=== PATIENT | female | born 1960 ===

== ENCOUNTER → 2016-06-02 | Outpatient (CLI) | payer BC, OTHER ==
--- NOTE | 2016-06-03 09:37 | US ---
EXAMINATION ULTRASOUND ABDOMEN HISTORY: Abdominal pain Pancreas is not well visualized. Abdominal aorta is not aneurysmal. Visualized portions of inferior v katina cava are normal. Right kidney is 11.1 cm, left kidney 10.4 cm, no hydronephrosis. Spleen is 8.4 c m. Common bile duct does not appear dilated. Gallbladder shows no abnormal luminal echoes or wall thi ckening. Liver is unremarkable, liver span is 15.5 cm. IMPRESSION: Some limitations, no abnormality evident.
== END | disposition home or self-care (01) ==
LOC: RADUSYALE 09:18
PROVIDERS: ATTEND Physician Assistant Medical
DX: R10.33 Periumbilical pain (principal)
CPT/HCPCS: 76700

== ENCOUNTER → 2017-04-17 | Outpatient (CLI) | payer OTHER ==
--- NOTE | 2017-04-18 07:47 | US ---
EXAMINATION TYPE: US carotid duplex BILAT DATE OF EXAM: 04/17/2017 COMPARISON: MRI CLINICAL HISTORY: I65.22 occlusion and stenosis of left carotid. Pt states history of stroke, right e ndart 2 years ago/ pt states this is a 6 month F/U EXAM MEASUREMENTS: RIGHT: Peak Systolic Velocity (PSV) cm/sec ----- Right CCA: 78.2 ----- Right ICA: 105.6 ----- Right ECA: 153.0 ICA/CCA ratio: 1.4 RIGHT: End Diastole cm/sec ----- Right CCA: 27.6 ----- Right ICA: 26.7 ----- Right ECA: 34.7 LEFT: Peak Systolic Velocity (PSV) cm/sec ----- Left CCA: 79.8 ----- Left ICA: 154.4 ----- Left ECA: 127.0 ICA/CCA ratio: 1.9 LEFT: End Diastole cm/sec ----- Left CCA: 29.2 ----- Left ICA: 67.2 ----- Left ECA: 25.2 VERTEBRALS (direction of flow): Right Vertebral: Antegrade Left Vertebral: Antegrade Rhythm: Normal IMPRESSION: Heterogeneous plaque bilaterally with elevated velocities left ICA Criteria for Assigning % of Stenosis / Diameter reduction (Estimation based on the indirect measurements of the internal carotid artery velocities (ICA PSV). 1. Normal (no stenosis)=ICA PSV < 125 cm/s: ratio < 2.0: ICA EDV<40 cm/s. 2. Less than 50% stenosis=ICA PSV < 125 cm/s: ratio < 2.0: ICA EDV<40 cm/s. 3. 50 to 69% stenosis=ICA PSV of 125 to 230 cm/s: ration 2.0 ? 4.0: ICA EDV 40-100 cm/s. 4. Greater than 70% stenosis to near occlusion= ICA PSV > 230 cm/s: ratio > 4.0: ICA EDV > 100 cm/s. 5. Near occlusion= ICA PSV velocities may be low or undetectable: variable ratio and ICA EDV. 6. Total occlusion=unable to detect flow.
== END | disposition home or self-care (01) ==
LOC: RADUSWWP 15:41
PROVIDERS: ATTEND Family Medicine
DX: I65.23 Occlusion and stenosis of bilateral carotid arteries (principal)
CPT/HCPCS: 93880

== ENCOUNTER 2017-06-02 13:37 | Day surgery (SDC) | payer OTHER ==
[2017-05-31 09:30] VITALS: BMI 25.7
[~2017-06-02 13:37] MED LIST: DEXAMETHASONE SOD PHOSPHATE 10 MG/ML 1 ML VIAL IV ONE; LACTATED RINGERS 1,000 ML IV SCH; MIDAZOLAM 2 MG/2 ML VIAL IV PRN; MORPHINE SULFATE 4 MG/ML SYRINGE IV PRN; ONDANSETRON 4 MG/2 ML VIAL IVP ONE; SCOPOLAMINE 1.5MG/72HR PATCH TRANSDERM ONE; ceFAZolin IN SWFI 2 GM/20 ML SYRINGE IVP ONE
[2017-06-02] MEDS ORDERED: SUCCINYLCHOLINE CHLORIDE 100 MG/5 ML SYR IV ONE (15:40)
[2017-06-02] MEDS ORDERED: MIDAZOLAM 2 MG/2 ML VIAL ONE (15:40)
[2017-06-02] MEDS ORDERED: fentaNYL (PF) 50 MCG/ML 2 ML AMP ONE (15:40)
[2017-06-02] MEDS ORDERED: PROPOFOL 10 MG/ML 20 ML VIAL IV ONE (15:40)
[2017-06-02] MEDS ORDERED: ePHEDrine SULFATE/0.9% NACL/PF 50 MG/5 ML SYRINGE IV ONE (15:40)
[2017-06-02] MEDS ORDERED: LIDOCAINE 1% INJ 10MG/ML (20 ML MDV) ONE (15:40)
[2017-06-02] MEDS ORDERED: HYDROmorphone (PF) 1 MG/ML ONE (15:40)
[2017-06-02] MEDS ORDERED: ceFAZolin 1,000 MG in SODIUM CHLORIDE 0.9% 1,000 ML IRRIGATION ONE (16:12)
[2017-06-02] MEDS ORDERED: LACTATED RINGERS 1,000 ML IV ONE (17:26)
[2017-06-02 18:10] VITALS: TEMP 97
[2017-06-02] MEDS: HYDROmorphone 4 MG/ML 1 ML SYRINGE IVP ONE ×2 (18:22→18:27)
--- NOTE | 2017-06-02 18:22 | P.OP ---
Date of Procedure: 06/02/17 Preoperative Diagnosis: 1. Recurrent and arthritic right hallux valgus 2. Flexible right second through fourth hammertoes 3. Right gastroc contracture Postoperative Diagnosis: Same Procedure(s) Performed: 1. Right first MTP arthrodesis 2. Correction of right second flexible hammertoe with Girdlestone-Tashia flexor to extensor tendon transfer and MTP capsulotomy 3.Correction of right third flexible hammertoe with Girdlestone-Tashia flexor to extensor tendon transfer and MTP capsulotomy 4. Correction of right fourth flexible hammertoe with Girdlestone-Tashia flexor to extensor tendon transfer and MTP capsulotomy 5. Right gastrocnemius recession 6. Upper patient of short leg splint, right leg Anesthesia: ROSARIO Surgeon: Roland Huston Counter Help #1: Wicho Gonzalez Estimated Blood Loss (ml): 25 IV fluids (ml): 800 Pathology: none sent Condition: stable Disposition: PACU Indications for Procedure: The patient is very pleasant. Is a healthy 56-year-old female with a long- standing history of problems in her right foot. She previously underwent a medial eminence resection for hallux valgus but developed recurrence. She had ongoing pain and developed arthritis. She also had flexible second through fourth hammertoes. She failed a long course of nonsurgical treatment including orthotics, shoe modification, anti-inflammatories, physical therapy, and stretching all with minimal relief of her symptoms. She met with me to discuss surgery. The proposed surgery was to correct her recurrent and arthritic hallux valgus with a first MTP fusion, address her second through fourth hammertoe deformities with flexor to extensor tendon transfers and MTP capsulotomies, and to offload her forefoot with a gastroc recession. We discussed the potential risks and complications of surgery including but not limited to risk of anesthesia, risk of superficial infection, risk of deep infection, risk of delayed wound healing, risk of damage to local blood vessels or nerves, risk of nonunion of the fusion site, risk of malunion the fusion site , risk of symptomatically hardware, risk of intraoperative fracture, risk of postoperative fracture, risk of recurrent deformity, risk of hallux varus deformity, risk of floating toe, risk of numbness in the toes, risk of vascular embarrassment to the toe necessitating an amputation, risk of chronic pain, risk of chronic swelling, risk of surgery to not be preoperative expectations, generalized to satisfaction of surgery, DVT, PE, other medical complications, and possibly loss of life or limb. The patient voiced her understanding of these complications and also acknowledges that there are other less common complications possible. She provided her verbal and written consent to go forward with surgery. Description of Procedure: Was identified in preoperative holding and the correct right leg was marked with my initials. I reviewed the consent form with the patient and all of her questions were answered. A popliteal and saphenous nerve block was placed by anesthesia. The patient was then brought back to the operating room. She was positioned on the OR table and a general anesthetic and preoperative antibiotics were administered. A tourniquet was applied to the proximal aspect of the right thigh. A bump was placed under the right leg internally rotating the leg to neutral. A ramp was placed under the right leg to facilitate imaging. The left leg secured to the table with foam and tape. The right leg was then prepped and draped in the standard sterile fashion. Prior to starting surgery timeout was performed identifying the correct patient, operative extremity, and procedure. The patient's leg was then elevated, exsanguinated with an Esmarch bandage, the tourniquet was inflated to 250 mmHg. I began by outlining an incision over the dorsal aspect of the big toe with a skin marker. Skin incision was made with a 15 blade scalpel. Dissection was carried down carefully to the EHL tendon sheath. The EHL was retracted laterally. A first MTP capsulotomy was made in line with the skin incision. The first metatarsal head and base the proximal phalanx were exposed. A K wire was driven down the central aspect of the first metatarsal head. A concave reamer was then used to remove remaining articular cartilage. The K wire was withdrawn and then used to perforate the subchondral bone to help facilitate bleeding and fusion. The K wire was then driven down the proximal phalanx. A convex reamer was used to remove the remaining cartilage down to subchondral bone. The K wires withdrawn and then used to perforate the subchondral bone. The dorsal aspect of the first metatarsal and proximal phalanx were contoured and then placed for fusion. Once I was happy with the position of the first MTP joint and eccentric we placed K wire was driven across the joint. I used a flat plate to assess position of the toe. I also verified position of the fusion with a K wire. Once I was happy with position of the toe a 3.0 mm solid lag screw was placed across the joint. I then contoured a dorsal plate over the first MTP joint. I placed two nonlocking screws in the proximal phalanx. I then placed a nonlocking screw in the proximal aspect of an oblong hole in the metatarsal shaft to help generate additional compression. I then placed 2 additional nonlocking screws. Final fluoroscopic shots were taken including AP and lateral x-ray of the foot. The hardware appeared to be in acceptable position. Attention was then turned to the toes. I began by outlining a medial incision over the second toe. Skin incision was made with a 15 blade scalpel. The neurovascular bundle was retracted plantarly. The flexor tendon sheath was incised. The long flexor tendon was identified, clamped, and released distally. The 2 slips of the short flexor tendon were cut. I then made a small incision over the dorsal aspect of the proximal phalanx and MTP joint of the second toe. The extensor mechanism was identified and retracted. A capsulotomy was performed. A small stab incision was made in the extensor mechanism over the proximal phalanx. A hemostat was used to tunnel subperiosteally along the medial border of the proximal phalanx into the medial wound on the toe. The long flexor tendon was then grasped with a hemostat and pulled up into the dorsal incision. The flexor tendon was then secured to the extensor mechanism with a pyhwpp-bq-kuziv 3-0 FiberWire. I began by outlining a medial incision over the third toe. Skin incision was made with a 15 blade scalpel. The neurovascular bundle was retracted plantarly. The flexor tendon sheath was incised. The long flexor tendon was identified, clamped, and released distally. The 2 slips of the short flexor tendon were cut. I then made a small incision over the dorsal aspect of the proximal phalanx and MTP joint of the third toe. The extensor mechanism was identified and retracted. A capsulotomy was performed. A small stab incision was made in the extensor mechanism over the proximal phalanx. A hemostat was used to tunnel subperiosteally along the medial border of the proximal phalanx into the medial wound on the toe. The long flexor tendon was then grasped with a hemostat and pulled up into the dorsal incision. The flexor tendon was then secured to the extensor mechanism with a [id number] 3-0 FiberWire. I began by outlining a medial incision over the fourth toe. Skin incision was made with a 15 blade scalpel. The neurovascular bundle was retracted plantarly. The flexor tendon sheath was incised. The long flexor tendon was identified, clamped, and released distally. The 2 slips of the short flexor tendon were cut. I then made a small incision over the dorsal aspect of the proximal phalanx and MTP joint of the fourth toe. The extensor mechanism was identified and retracted. A capsulotomy was performed. A small stab incision was made in the extensor mechanism over the proximal phalanx. A hemostat was used to tunnel subperiosteally along the medial border of the proximal phalanx into the medial wound on the toe. The long flexor tendon was then grasped with a hemostat and pulled up into the dorsal incision. The flexor tendon was then secured to the extensor mechanism with a odumhg-lr-tfafp 3-0 FiberWire. Attention was then turned to the calf. A small longitudinal incision was marked out 1 thumb breadth posterior to the tibia at the distal medial muscle belly of the gastrocnemius. Skin incision was made to 15 blade scalpel. Dissection was carried down carefully in line with the skin incision to the fascia. The fascia was incised longitudinally in my with the skin incision. I believe developed interval between the gastrocnemius aponeurosis and superficial fascia and between the gastrocnemius aponeurosis soleus fascia. The sural nerve was found to be adherent to the superficial fascia. Modified right angle retractors were placed isolating the gastrocnemius aponeurosis. The gastrocnemius aponeurosis was transected from medial to lateral under direct visualization. After releasing the gastrocnemius aponeurosis I verified sural nerve was intact. At this point all wounds were copiously irrigated. The deep subcu over the Incision was closed with 2-0 Vicryl and the skin was closed with 3-0 nylon. The capsule over the first MTP joint was closed with a running 2-0 Vicryl, the subcu was closed with 2-0 Vicryl, and the skin was closed with 3-0 nylon horizontal mattress stitches. The incisions over the toes were closed with 3-0 nylon horizontal mattress stitches. I verified that all instrument, sponge, and sharp counts were correct. The tourniquet was let down with a total tourniquet time of 83 minutes. All 3 of the toes had brisk capillary refill. A sterile dressing consisting of Betadine soaked Adaptic, 4 x 4, and web roll was applied. The drapes were taken down and a well-padded bulky Faulkner splint was placed with the ankle in neutral. The patient was then awoken from her anesthetic, transferred from the [place] table to the [place] and brought to PACU without the procedure well. Wicho Gonzalez PA-C was required is a skilled dyer assistant for patient positioning, surgical exposure, preparation of joint surfaces, placement of hardware, closure of wound, and application of splint. Plan: The patient can discharge home as an outpatient. History and strictly nonweightbearing on her right leg. She was given a prescription for aspirin for DVT prophylaxis and pain medications. She'll follow-up in the office in 2 weeks.
[2017-06-02] MEDS ORDERED: diphenhydrAMINE 50 MG/ML 1 ML VIAL IVP ONE (18:36)
[2017-06-02] MEDS ORDERED: oxyCODONE-APAP 5-325MG 1 EACH TAB PO ONE (19:15)
[2017-06-02 19:54] VITALS: BP 133/90; PULSE 90; RESP 20
--- NOTE | 2017-06-02 21:27 | XR ---
Limited right foot HISTORY: First metatarsophalangeal arthrodesis 4 intraoperative C-arm images document the procedure
--- NOTE | 2017-06-02 21:28 | FL ---
Fluoroscopy HISTORY: First metatarsophalangeal joint arthrodesis 6 seconds fluoroscopy time supplied to the referring clinician. 4 intraoperative C-arm images docume nt the procedure. See dictated report from orthopedic surgery.
== END 2017-06-02 20:17 | disposition home or self-care (01) ==
LOC: OR 13:37
PROVIDERS: ATTEND Orthopaedic Surgery
DX: M20.11 Hallux valgus (acquired), right foot (principal); M19.071 Primary osteoarthritis, right ankle and foot; M20.41 Other hammer toe(s) (acquired), right foot; M24.571 Contracture, right ankle; M21.611 Bunion of right foot; I10 Essential (primary) hypertension; G43.909 Migraine, unspecified, not intractable, without status migrainosus; E78.2 Mixed hyperlipidemia; K58.1 Irritable bowel syndrome with constipation; M50.30 Other cervical disc degeneration, unspecified cervical region; M51.36 Other intervertebral disc degeneration, lumbar region; F33.9 Major depressive disorder, recurrent, unspecified; I65.29 Occlusion and stenosis of unspecified carotid artery; Z79.02 Long term (current) use of antithrombotics/antiplatelets; Z79.891 Long term (current) use of opiate analgesic; Z79.899 Other long term (current) drug therapy; Z86.73 Personal history of transient ischemic attack (TIA), and cerebral infarction without residual deficits; Z88.5 Allergy status to narcotic agent; Z88.8 Allergy status to other drugs, medicaments and biological substances
CPT/HCPCS: 73620; 28750; 28313 ×3; 27687; J1200; J1100; J0690 ×2; J2405; J1170

== ENCOUNTER 2018-05-29 00:27 | Emergency (ER) | payer OTHER ==
[2018-05-29 00:39] VITALS: PULSE 65; TEMP 98.3
[2018-05-29 00:48] LABS: Glucose,Whole Blood 109 mg/dL (75-99)
[2018-05-29] MEDS ORDERED: SODIUM CHLORIDE 0.9% 1,000 ML IV STA (01:17)
[2018-05-29 01:40] LABS: ALT 24 U/L (9-52); AST 23 U/L (14-36); Albumin 4.3 g/dL (3.5-5.0); Alkaline Phosphatase 56 U/L (38-126); Anion Gap 8 mmol/L; Blood Urea Nitrogen 14 mg/dL (7-17); Calcium 9.6 mg/dL (8.4-10.2); Carbon Dioxide 31 mmol/L (22-30); Chloride 102 mmol/L (98-107); Glucose 95 mg/dL (74-99); Magnesium 1.9 mg/dL (1.6-2.3); Potassium 4.4 mmol/L (3.5-5.1); Sodium 141 mmol/L (137-145); Total Bilirubin 0.3 mg/dL (0.2-1.3)
[2018-05-29 01:41] LABS: INR 0.9 (<1.2); Partial Thromboplastin Time 23.2 sec (22.0-30.0); Prothrombin Time 9.6 sec (9.0-12.0)
[2018-05-29 01:49] LABS: Basophils % (A) 1 %; Eosinophils # (A) 0.3 k/uL (0-0.7); Eosinophils % (A) 3 %; HCT 41.9 % (34.0-46.0); HGB 13.7 gm/dL (11.4-16.0); Lymphocytes # (A) 2.6 k/uL (1.0-4.8); Lymphocytes % (A) 29 %; MCH 30.4 pg (25.0-35.0); MCHC 32.6 g/dL (31.0-37.0); MCV 93.4 fL (80.0-100.0); Mean Platelet Volume 7.5; Monocytes # (A) 0.5 k/uL (0-1.0); Monocytes % (A) 6 %; Neutrophils # (A) 5.2 k/uL (1.3-7.7); Neutrophils % (A) 58 %; Platelet Count 260 k/uL (150-450); RBC 4.48 m/uL (3.80-5.40); RDW 12.2 % (11.5-15.5); WBC 8.9 k/uL (3.8-10.6)
--- NOTE | 2018-05-29 01:54 | XR ---
EXAMINATION TYPE: XR chest 2V DATE OF EXAM: 05/29/2018 COMPARISON: 11/07/2013 HISTORY: Chest pain TECHNIQUE: Frontal and lateral views of the chest are obtained. FINDINGS: Heart and mediastinum are normal. Lungs are clear. Diaphragm is normal. There are chest le ads. Bony thorax is intact. IMPRESSION: Normal chest. No change.
--- NOTE | 2018-05-29 02:01 | CT ---
EXAMINATION TYPE: CT brain wo con DATE OF EXAM: 05/29/2018 COMPARISON: 11/07/2013 HISTORY: AMS CT DLP: 1048.4 mGycm Automated exposure control for dose reduction was used. FINDINGS: Ventricles of normal size. There is no mass effect nor midline shift. There is no sign of intracrania l hemorrhage. The calvarium is intact. IMPRESSION: NEGATIVE CT SCAN OF THE BRAIN. NO CHANGE COMPARED TO OLD EXAM.
[2018-05-29 02:13] LABS: Creatine Kinase 94 U/L (30-135)
[2018-05-29 02:27] LABS: Creatine Kinase MB 2.8 ng/mL (0.0-2.4); Troponin I <0.012 ng/mL (0.000-0.034)
--- NOTE | 2018-05-29 03:31 | ED ---
Altered Mental Status HPI - General Source: patient Mode of arrival: ambulatory Limitations: no limitations <Veronica Mccarthy - Last Filed: 05/29/18 03:54> <Alycia Kohler - Last Filed: 05/29/18 09:58> - General Chief Complaint: Altered Mental Status Stated Complaint: Head Pressure, not feeling right Time Seen by Provider: 05/29/18 01:04 - History of Present Illness Initial Comments: 57-year-old female patient presents to the emergency department today for evaluation after having an episode starting around 8:30 where she felt and heard a pulsating whooshing sound in her head and neck. Patient states this lasted for a couple of hours. Patient states she does have history of CVA so became concerned and presented for further evaluation. Patient denies any blurred or double vision with the episode. Denies any headache. Denies any chest pain, shortness of breath, nausea, vomiting, sweats, fever, or chills with this. Denies numbness, tingling, or weakness to her extremities. Denies any ear pain. Patient states that she still doesn't feel "right". She is unable to describe how she is feeling. She denies any alcohol or drug use. Patient denies any recent rash, shortness breath, chest pain, abdominal pain, diarrhea, constipation, back pain, numbness, tingling, hematuria, dysuria, urinary urgency, urinary frequency, or any other complaints. (Veronica Mccarthy) - Related Data Home Medications Medication Instructions Recorded Confirmed ALPRAZolam [Xanax] 0.25 mg PO Q8HR 01/25/15 06/02/17 Atorvastatin [Lipitor] 40 mg PO HS 01/25/15 05/31/17 Clopidogrel [Plavix] 75 mg PO DAILY 01/25/15 05/31/17 Biotin 10,000 mcg PO DAILY 05/31/17 05/31/17 Calcium Carbonate [Calcium] 600 mg PO BID 05/31/17 05/31/17 Citalopram Hydrobromide [CeleXA] 40 mg PO QAM 05/31/17 06/02/17 Cyclobenzaprine [Flexeril] 10 mg PO BID 05/31/17 06/02/17 Gabapentin [Neurontin] 300 mg PO QAM 05/31/17 06/02/17 Gabapentin [Neurontin] 600 mg PO HS 05/31/17 05/31/17 Losartan-Hctz 50-12.5 mg [Hyzaar 1 each PO QAM 05/31/17 06/02/17 50-12.5] Multivit with Calcium,Iron,Min 1 each PO QAM 05/31/17 05/31/17 [Women's Multivitamin] traZODone HCL 50 mg PO HS PRN 05/31/17 06/02/17 Previous Rx's Medication Instructions Recorded Ibuprofen [Motrin] 600 mg PO Q6HR PRN #20 tab 01/26/15 Aspirin 325 mg PO BID #60 tab 06/02/17 Docusate [Colace] 100 mg PO BID #60 capsule 06/02/17 HYDROcodone/APAP 10-325MG [[place] 1 tab PO Q4HR PRN #60 tab 06/02/17 10-325] oxyCODONE HCL/ACETAMINOPHEN 1 tab PO Q6HR PRN #15 tab 06/02/17 [Percocet 5-325 mg] Allergies Allergy/AdvReac Type Severity Reaction Status Date / Time tramadol Allergy Itching Verified 05/29/18 00:38 Review of Systems ROS Other: All systems not noted in ROS Statement are negative. <Veronica Mccarthy - Last Filed: 05/29/18 03:54> ROS Other: All systems not noted in ROS Statement are negative. <Alycia Kohler - Last Filed: 05/29/18 09:58> ROS Statement: Those systems with pertinent positive or pertinent negative responses have been documented in the HPI. Past Medical History Past Medical History: CVA/TIA, Fibromyalgia, Hyperlipidemia, Hypertension Additional Past Medical History / Comment(s): Stroke, History of Any Multi-Drug Resistant Organisms: None Reported Past Surgical History: Hysterectomy, Orthopedic Surgery Additional Past Surgical History / Comment(s): carotid, carpel tunnel bilateral , bilaterl hand basal joint, and bilateral foot surgery, partial Hyst Past Anesthesia/Blood Transfusion Reactions: No Reported Reaction Past Psychological History: Anxiety Smoking Status: Former smoker Past Alcohol Use History: Rare Past Drug Use History: None Reported - Past Family History Sister(s) Family Medical History: Cancer Additional Family Medical History / Comment(s): ovarian <Veronica Mccarthy - Last Filed: 05/29/18 03:54> General Exam Limitations: no limitations General appearance: alert, in no apparent distress, other (This is a well- developed, well-nourished adult female patient in no acute distress. Vital signs upon presentation are temperature 98.3F, pulse 65, respirations 18, blood pressure 117/81, pulse ox 100% on room air.) Eye exam: Present: normal appearance, PERRL, EOMI. Absent: scleral icterus, conjunctival injection, periorbital swelling ENT exam: Present: normal exam, normal oropharynx, mucous membranes moist, TM's normal bilaterally Neck exam: Present: normal inspection, other (No carotid bruit noted). Absent: tenderness, meningismus, lymphadenopathy Respiratory exam: Present: normal lung sounds bilaterally. Absent: respiratory distress, wheezes, rales, rhonchi, stridor Cardiovascular Exam: Present: regular rate, normal rhythm, normal heart sounds. Absent: systolic murmur, diastolic murmur, rubs, gallop, clicks GI/Abdominal exam: Present: soft, normal bowel sounds. Absent: distended, tenderness, guarding, rebound, rigid Neurological exam: Present: alert, oriented X3, CN II-XII intact Expanded Speech: Present: fluid speech Cranial nerves: EOM's Intact: Normal, Tongue Deviation: Normal, Nystagmus: Normal, Facial Palsy with Forehead Movement: Normal Motor strength exam: RUE: 5, LUE: 5, RLE: 5, LLE: 5 Psychiatric exam: Present: normal affect, normal mood Skin exam: Present: warm, dry, intact, normal color. Absent: rash <Veronica Mccarthy M - Last Filed: 05/29/18 03:54> Vital Signs 05/29/18 05/29/18 00:33 03:51 Temperature 98.3 F Pulse Rate 65 65 Respiratory 18 16 Rate Blood Pressure 117/81 117/76 O2 Sat by Pulse 100 98 Oximetry Medical Decision Making - Lab Data Result diagrams: 05/29/18 00:53 05/29/18 00:53 - Radiology Data Radiology results: report reviewed, image reviewed <Veronica Mccarthy - Last Filed: 05/29/18 03:54> - Lab Data Result diagrams: 05/29/18 00:53 05/29/18 00:53 <Alycia Kohler - Last Filed: 05/29/18 09:58> - Medical Decision Making I was available for consultation in the emergency department. The history and physical exam were done by the midlevel provider. I was consulted for this patient's care. I reviewed the case with the midlevel provider and based on their presentation of the patient, I agree with the assessment, medical decision making and plan of care as documented. (Alycia Kohler) - Lab Data Lab Results 05/29/18 05/29/18 05/29/18 Range/Units 00:46 00:53 00:53 WBC 8.9 (3.8-10.6) k/uL RBC 4.48 (3.80-5.40) m/uL Hgb 13.7 (11.4-16.0) gm/dL Hct 41.9 (34.0-46.0) % MCV 93.4 (80.0-100.0) fL MCH 30.4 (25.0-35.0) pg MCHC 32.6 (31.0-37.0) g/dL RDW 12.2 (11.5-15.5) % Plt Count 260 (150-450) k/uL Neutrophils % 58 % Lymphocytes % 29 % Monocytes % 6 % Eosinophils % 3 % Basophils % 1 % Neutrophils # 5.2 (1.3-7.7) k/uL Lymphocytes # 2.6 (1.0-4.8) k/uL Monocytes # 0.5 (0-1.0) k/uL Eosinophils # 0.3 (0-0.7) k/uL Basophils # 0.0 (0-0.2) k/uL PT (9.0-12.0) sec INR (<1.2) APTT (22.0-30.0) sec Sodium (137-145) mmol/L Potassium (3.5-5.1) mmol/L Chloride (98-107) mmol/L Carbon Dioxide (22-30) mmol/L Anion Gap mmol/L BUN (7-17) mg/dL Creatinine (0.52-1.04) mg/dL Est GFR (CKD-EPI)AfAm (>60 ml/min/1.73 sqM) Est GFR (CKD-EPI)NonAf (>60 ml/min/1.73 sqM) Glucose (74-99) mg/dL POC Glucose (mg/dL) 109 H (75-99) mg/dL POC Glu Feed Adviser ID Tashia Ordoñez Calcium (8.4-10.2) mg/dL Magnesium (1.6-2.3) mg/dL Total Bilirubin (0.2-1.3) mg/dL AST (14-36) U/L ALT (9-52) U/L Alkaline Phosphatase (38-126) U/L Total Creatine Kinase 94 (30-135) U/L CK-MB (CK-2) 2.8 H (0.0-2.4) ng/mL CK-MB (CK-2) Rel Index 3.0 Troponin I <0.012 (0.000-0.034) ng/mL Total Protein (6.3-8.2) g/dL Albumin (3.5-5.0) g/dL TSH (0.465-4.680) mIU/L 05/29/18 05/29/18 Range/Units 00:53 00:53 WBC (3.8-10.6) k/uL RBC (3.80-5.40) m/uL Hgb (11.4-16.0) gm/dL Hct (34.0-46.0) % MCV (80.0-100.0) fL MCH (25.0-35.0) pg MCHC (31.0-37.0) g/dL RDW (11.5-15.5) % Plt Count (150-450) k/uL Neutrophils % % Lymphocytes % % Monocytes % % Eosinophils % % Basophils % % Neutrophils # (1.3-7.7) k/uL Lymphocytes # (1.0-4.8) k/uL Monocytes # (0-1.0) k/uL Eosinophils # (0-0.7) k/uL Basophils # (0-0.2) k/uL PT 9.6 (9.0-12.0) sec INR 0.9 (<1.2) APTT 23.2 (22.0-30.0) sec Sodium 141 (137-145) mmol/L Potassium 4.4 (3.5-5.1) mmol/L Chloride 102 (98-107) mmol/L Carbon Dioxide 31 H (22-30) mmol/L Anion Gap 8 mmol/L BUN 14 (7-17) mg/dL Creatinine 0.66 (0.52-1.04) mg/dL Est GFR (CKD-EPI)AfAm >90 (>60 ml/min/1.73 sqM) Est GFR (CKD-EPI)NonAf >90 (>60 ml/min/1.73 sqM) Glucose 95 (74-99) mg/dL POC Glucose (mg/dL) (75-99) mg/dL POC Glu Feed Adviser ID Calcium 9.6 (8.4-10.2) mg/dL Magnesium 1.9 (1.6-2.3) mg/dL Total Bilirubin 0.3 (0.2-1.3) mg/dL AST 23 (14-36) U/L ALT 24 (9-52) U/L Alkaline Phosphatase 56 (38-126) U/L Total Creatine Kinase (30-135) U/L CK-MB (CK-2) (0.0-2.4) ng/mL CK-MB (CK-2) Rel Index Troponin I (0.000-0.034) ng/mL Total Protein 7.0 (6.3-8.2) g/dL Albumin 4.3 (3.5-5.0) g/dL TSH 3.980 (0.465-4.680) mIU/L - Radiology Data Two-view x-ray of the chest is obtained. Report was reviewed in its entirety. Impression by Dr. Curry shows normal chest with no change. CT brain without contrast was performed. Report was reviewed in its entirety. Impression by Dr. Curry shows negative computed tomography scan of the brain. No change compared to old exam. (Veronica Mccarthy) Disposition Is patient prescribed a controlled substance at d/c from ED?: No Time of Disposition: 03:31 <Veronica Mccarthy - Last Filed: 05/29/18 03:54> <Alycia Kohler - Last Filed: 05/29/18 09:58> Clinical Impression: Pressure in head, Lightheadedness Disposition: HOME SELF-CARE Condition: Good Instructions: Acute Headache (ED) Additional Instructions: Follow-up with the primary care physician for recheck in 1-2 days. Return immediately for any new, worsening, or concerning symptoms Referrals: Allen Watkins DO [Primary Care Provider] - 1-2 days Addendum entered and electronically signed by Veronica Mccarthy, HAND ALMOND BLANCHER-BC, AGACORBYP -BC 05/29/18 05:39: EKG DOCUMENTATION: EKG obtained at 0120 shows sinus bradycardia with a ventricular rate of 55, CO interval 154, QRS duration 92, QT 436, QTc 417. No evidence of ST elevation or depression.
[2018-05-29 03:52] VITALS: BP 117/76; RESP 16
== END 2018-05-29 03:52 | disposition home or self-care (01) ==
LOC: EC 00:27
DX: R42 Dizziness and giddiness (principal); R41.82 Altered mental status, unspecified; G51.0 Bell's palsy; M79.7 Fibromyalgia; E78.5 Hyperlipidemia, unspecified; I10 Essential (primary) hypertension; F41.9 Anxiety disorder, unspecified; Z86.73 Personal history of transient ischemic attack (TIA), and cerebral infarction without residual deficits; Z87.891 Personal history of nicotine dependence; Z79.02 Long term (current) use of antithrombotics/antiplatelets; Z79.899 Other long term (current) drug therapy
CPT/HCPCS: 36415; 70450; 71046; 80053; 82550; 82553; 83735; 84443; 84484; 85025; 85610; 85730; 93005; 96360; 99285

== ENCOUNTER → 2018-07-20 | Outpatient (CLI) | payer OTHER ==
--- NOTE | 2018-07-20 17:59 | US ---
EXAMINATION TYPE: US carotid duplex BILAT DATE OF EXAM: 07/20/2018 COMPARISON: NONE CLINICAL HISTORY: I63.239 Cerebral Infarction. History of stroke, right endarterectomy 6 years ago EXAM MEASUREMENTS: RIGHT: Peak Systolic Velocity (PSV) cm/sec ----- Right CCA: 113 ----- Right ICA: 107 ----- Right ECA: 190 ICA/CCA ratio: 0.95 RIGHT: End Diastole cm/sec ----- Right CCA: 31.7 ----- Right ICA: 41.6 ----- Right ECA: 31 LEFT: Peak Systolic Velocity (PSV) cm/sec ----- Left CCA: 100 ----- Left ICA: 166 ----- Left ECA: 188 ICA/CCA ratio: 1.66 LEFT: End Diastole cm/sec ----- Left CCA: 32.9 ----- Left ICA: 53.3 ----- Left ECA: 26.1 VERTEBRALS (direction of flow): Right Vertebral: Antegrade Left Vertebral: Antegrade Rhythm: Normal Heterogenous plaque noted bilaterally. Increased velocities left ICA, bilateral ECA's IMPRESSION: 1. Plaquing present at the bilateral carotid bifurcations. 2. Moderate stenosis between 50 and 69% present at the left internal carotid artery with elevated praveen ocity. Criteria for Assigning % of Stenosis / Diameter reduction (Estimation based on the indirect measurements of the internal carotid artery velocities (ICA PSV). 1. Normal (no stenosis)=ICA PSV < 125 cm/s: ratio < 2.0: ICA EDV<40 cm/s. 2. Less than 50% stenosis=ICA PSV < 125 cm/s: ratio < 2.0: ICA EDV<40 cm/s. 3. 50 to 69% stenosis=ICA PSV of 125 to 230 cm/s: ration 2.0 ? 4.0: ICA EDV 40-100 cm/s. 4. Greater than 70% stenosis to near occlusion= ICA PSV > 230 cm/s: ratio > 4.0: ICA EDV > 100 cm/s. 5. Near occlusion= ICA PSV velocities may be low or undetectable: variable ratio and ICA EDV. 6. Total occlusion=unable to detect flow.
== END | disposition home or self-care (01) ==
LOC: RADUSWWP 14:58
PROVIDERS: ATTEND Family Medicine
DX: I65.23 Occlusion and stenosis of bilateral carotid arteries (principal)
CPT/HCPCS: 93880

== ENCOUNTER → 2018-08-17 | Outpatient (CLI) | payer OTHER ==
--- NOTE | 2018-08-17 13:16 | US ---
EXAMINATION TYPE: US kidneys/renal and bladder DATE OF EXAM: 08/17/2018 COMPARISON: US 06/02/2016, CT 09/14/2010 CLINICAL HISTORY: D41.01 Rt renal cyst. EXAM MEASUREMENTS: Right Kidney: 10.8 X 4.5 X 4.9 cm Left Kidney: 10.2 X 4.5 X 4.9 cm Right Kidney: No hydronephrosis. Cystic area visualized lower pole measuring 0.9 x 0.7 x 0.7 cm. Unab le to visualized area seen on CT in 2010. Left Kidney: Limited visualization due to overlying bowel gas. No hydronephrosis. No cystic or solid mass visualized on visualized portions Bladder: wnl Bilateral Jets seen: Yes There is no evidence for hydronephrosis at this point in time. No nephrolithiasis is seen. The ur inary bladder is anechoic. Bilateral ureteral jets are seen. IMPRESSION: There is an anechoic right renal cyst however this does not appear to relate to the previously seen c omplex exophytic lateral right cystic lesion in the exam of 2010. Three-phase CT abdomen could confir m involution.
== END | disposition home or self-care (01) ==
LOC: RADUSWWP 12:25
PROVIDERS: ATTEND Urology
DX: N28.1 Cyst of kidney, acquired (principal); D41.01 Neoplasm of uncertain behavior of right kidney; Z88.6 Allergy status to analgesic agent; Z88.8 Allergy status to other drugs, medicaments and biological substances
CPT/HCPCS: 76770

== ENCOUNTER 2018-11-18 18:09 | Emergency (ER) | payer OTHER ==
[2018-11-18 19:26] VITALS: BP 151/82; PULSE 51; RESP 18; TEMP 98.2
[2018-11-18] MEDS ORDERED: LIDOCAINE 1% INJ 10MG/ML (20 ML MDV) SQ ONE (20:09)
--- NOTE | 2018-11-18 21:06 | ED ---
Wound/Laceration HPI - General Chief Complaint: Wound/Laceration Stated Complaint: Stabbed in hand with knife Time Seen by Provider: 11/18/18 20:01 Source: patient Mode of arrival: ambulatory Limitations: no limitations - History of Present Illness Initial Comments: Patient is a 58-year-old female presenting to emergency Department with complaints of a laceration to her left palm. Patient states she was attempting to cut off some plastic with a sharp knife, slipped, then cut her left palm. Patient has full use of her left hand. Patient denies any numbness or tingling. Patient's tetanus vaccine is up-to-date. No other complaints at this time. Bleeding is controlled. - Related Data Home Medications Medication Instructions Recorded Confirmed ALPRAZolam [Xanax] 0.25 mg PO Q8HR 01/25/15 11/18/18 Atorvastatin [Lipitor] 40 mg PO HS 01/25/15 11/18/18 Clopidogrel [Plavix] 75 mg PO DAILY 01/25/15 11/18/18 Citalopram Hydrobromide [CeleXA] 40 mg PO QAM 05/31/17 11/18/18 Cyclobenzaprine [Flexeril] 10 mg PO BID 05/31/17 11/18/18 Gabapentin [Neurontin] 300 mg PO QAM 05/31/17 11/18/18 Gabapentin [Neurontin] 600 mg PO HS 05/31/17 11/18/18 Losartan-Hctz 50-12.5 mg [Hyzaar 1 tab PO QAM 05/31/17 11/18/18 50-12.5] HYDROcodone/APAP 7.5-325MG [[place] 1 tab PO BID PRN 11/18/18 11/18/18 7.5-325] Allergies Allergy/AdvReac Type Severity Reaction Status Date / Time tramadol Allergy Itching Verified 11/18/18 20:27 Review of Systems ROS Statement: Those systems with pertinent positive or pertinent negative responses have been documented in the HPI. ROS Other: All systems not noted in ROS Statement are negative. Past Medical History Past Medical History: CVA/TIA, Fibromyalgia, Hyperlipidemia, Hypertension Additional Past Medical History / Comment(s): Stroke, History of Any Multi-Drug Resistant Organisms: None Reported Past Surgical History: Hysterectomy, Orthopedic Surgery Additional Past Surgical History / Comment(s): carotid, carpel tunnel bilateral, bilaterl hand basal joint, and bilateral foot surgery, partial Hyst Past Anesthesia/Blood Transfusion Reactions: No Reported Reaction Past Psychological History: Anxiety Smoking Status: Former smoker Past Alcohol Use History: Rare Past Drug Use History: None Reported - Past Family History Sister(s) Family Medical History: Cancer Additional Family Medical History / Comment(s): ovarian General Exam - General Exam Comments Initial Comments: GENERAL: Well-appearing, well-nourished and in no acute distress. HEAD: Atraumatic, normocephalic. EYES: Pupils equal round and reactive to light, extraocular movements intact, sclera anicteric, conjunctiva are normal. NECK: Normal range of motion, supple without lymphadenopathy or JVD. LUNGS: Breath sounds clear to auscultation bilaterally and equal. No wheezes rales or rhonchi. HEART: Regular rate and rhythm without murmurs, rubs or gallops. ABDOMEN: Soft, nontender, normoactive bowel sounds. No guarding, no rebound. No masses appreciated. : Deferred EXTREMITIES: Normal range of motion, no pitting or edema. No clubbing or cyanosis. NEUROLOGICAL: Cranial nerves II through XII grossly intact. Normal speech, normal gait. PSYCH: Normal mood, normal affect. Limitations: no limitations Skin exam: Present: warm Expanded Type of lesion: Present: laceration (1 cm laceration to the left palm) Course Vital Signs 11/18/18 19:22 Temperature 98.2 F Pulse Rate 51 L Respiratory 18 Rate Blood Pressure 151/82 O2 Sat by Pulse 100 Oximetry Procedures - Laceration Laceration #1 Consent Obtained: verbal consent Indication: laceration Site: hand (Left palm) Size (cm): 1 Description: linear Depth: simple, single layer Anesthetic Used: lidocaine 1% Anesthesia Technique: local infiltration Amount (mls): 2 Pre-repair: irrigated extensively Type of Sutures: nylon Size of Sutures: 4-0 Number of Sutures: 3 Technique: simple, interrupted Patient Tolerated Procedure: well Medical Decision Making - Medical Decision Making Patient is a 58-year-old female with a laceration to her left palm. Patient states she was trying to cut some plastic with a knife and slipped and cut into her left hand. Bleeding is controlled at this time. No apparent tendon injuries. Neurovascular intact. Wound was irrigated and 3, 4-0 nylon sutures were used to close the wound. Patient tolerated procedure well. Return p arameters were discussed. Patient is in agreement with instructions. Case discussed with Dr. Kohler. Disposition Clinical Impression: Laceration of left hand without complication, excluding fingers Disposition: HOME SELF-CARE Condition: Stable Instructions (If sedation given, give patient instructions): Care For Your Stitches (ED) Additional Instructions: Please return to the Emergency Department if symptoms worsen or any other concerns. Sutures need to be removed in 10-12 days. Watch for signs of infection such as redness, fever, chills, purulent drainage from the area. Is patient prescribed a controlled substance at d/c from ED?: No Referrals: Allen Watkins DO [Primary Care Provider] - 1-2 days
== END 2018-11-18 21:12 | disposition home or self-care (01) ==
LOC: EC 18:09
DX: S61.412A Laceration without foreign body of left hand, initial encounter (principal); M79.7 Fibromyalgia; E78.5 Hyperlipidemia, unspecified; I10 Essential (primary) hypertension; F41.9 Anxiety disorder, unspecified; Z86.73 Personal history of transient ischemic attack (TIA), and cerebral infarction without residual deficits; Z87.891 Personal history of nicotine dependence; Z79.02 Long term (current) use of antithrombotics/antiplatelets; Z79.899 Other long term (current) drug therapy; Z88.5 Allergy status to narcotic agent; W26.0XXA Contact with knife, initial encounter; Y93.89 Activity, other specified
CPT/HCPCS: 99282; 12001; J2001

== ENCOUNTER → 2019-09-27 | Outpatient (CLI) | payer OTHER ==
--- NOTE | 2019-09-27 17:49 | NM ---
EXAMINATION TYPE: NM bone 3 phase DATE OF EXAM: 09/27/2019 COMPARISON: NONE HISTORY: Left foot pain and swelling, trauma 4 weeks prior Triple phase bone scintigraphy was performed following the injection of 21.4 mCi Tc 99m MDP. Immedia te images and 6 hours post injection images acquired. FINDINGS: Abnormal radio pharmaceutical is noted to the left midfoot on flow, blood pool, delayed imaging. Anju yed imaging shows uptake in the right metatarsophalangeal joint. Delayed imaging also shows uptake at the posterior calcaneus Bohler aspect which may be due to plantar spur. IMPRESSION: Findings likely are due to fracture of the left midfoot, recommend additional imaging cor relation. IMPRESSION: No scintigraphic evidence of osseous metastatic disease.
== END | disposition home or self-care (01) ==
LOC: RADNMMAIN 07:29
PROVIDERS: ATTEND Family Medicine
DX: M79.672 Pain in left foot (principal)
CPT/HCPCS: 78315; A9503

== ENCOUNTER 2020-05-18 18:26 | Emergency (ER) | payer OTHER ==
[2020-05-18 18:33] VITALS: BP 159/88; PULSE 92; RESP 18; TEMP 98.7
[2020-05-18] MEDS ORDERED: ACET/COD 300 MG/30 MG STARTER PACK 6 TAB BTL PO STA (18:42)
[2020-05-18] MEDS ORDERED: CLINDAMYCIN 150 MG CAP PO STA (18:42)
[2020-05-18] MEDS ORDERED: HYDROcodone/APAP 7.5-325MG 1 EACH TAB PO ONE (18:42)
--- NOTE | 2020-05-18 18:45 | ED ---
ENT HPI - General Chief complaint: Dental/Oral Stated complaint: Mouth pain Time Seen by Provider: 05/18/20 18:35 Source: patient, RN notes reviewed Mode of arrival: ambulatory Limitations: no limitations - History of Present Illness Initial comments: 59-year-old female sent emergency Department chief complaint dental pain. Patient states that she was schedule have 3 or 4 to the extractions at the beginning of the year. Patient states she's had increasing pain. Patient states that she was unable to prior states that she did get better but now is worsen. No difficulty swallowing difficult breathing. No fevers or chills. - Related Data Home Medications Medication Instructions Recorded Confirmed ALPRAZolam [Xanax] 0.25 mg PO Q8HR 01/25/15 11/18/18 Atorvastatin [Lipitor] 40 mg PO HS 01/25/15 11/18/18 Clopidogrel [Plavix] 75 mg PO DAILY 01/25/15 11/18/18 Citalopram Hydrobromide [CeleXA] 40 mg PO QAM 05/31/17 11/18/18 Cyclobenzaprine [Flexeril] 10 mg PO BID 05/31/17 11/18/18 Gabapentin [Neurontin] 300 mg PO QAM 05/31/17 11/18/18 Gabapentin [Neurontin] 600 mg PO HS 05/31/17 11/18/18 Losartan-Hctz 50-12.5 mg [Hyzaar 1 tab PO QAM 05/31/17 11/18/18 50-12.5] HYDROcodone/APAP 7.5-325MG [[place] 1 tab PO BID PRN 11/18/18 11/18/18 7.5-325] Previous Rx's Medication Instructions Recorded Clindamycin HCl 300 mg PO Q6HR #40 cap 05/18/20 Naproxen [EC-Naproxen] 500 mg PO BID #20 tablet. 05/18/20 Allergies Allergy/AdvReac Type Severity Reaction Status Date / Time tramadol Allergy Itching Verified 05/18/20 18:31 Review of Systems ROS Statement: Those systems with pertinent positive or pertinent negative responses have been documented in the HPI. ROS Other: All systems not noted in ROS Statement are negative. Past Medical History Past Medical History: CVA/TIA, Fibromyalgia, Hyperlipidemia, Hypertension Additional Past Medical History / Comment(s): Stroke, History of Any Multi-Drug Resistant Organisms: None Reported Past Surgical History: Hysterectomy, Orthopedic Surgery Additional Past Surgical History / Comment(s): carotid, carpel tunnel bilateral, bilaterl hand basal joint, and bilateral foot surgery, partial Hyst Past Anesthesia/Blood Transfusion Reactions: No Reported Reaction Past Psychological History: Anxiety Past Alcohol Use History: Rare Past Drug Use History: None Reported - Past Family History Sister(s) Family Medical History: Cancer Additional Family Medical History / Comment(s): ovarian General Exam Limitations: no limitations General appearance: alert, in no apparent distress Head exam: Present: atraumatic, normocephalic, normal inspection Eye exam: Present: normal appearance, PERRL, EOMI. Absent: scleral icterus, conjunctival injection, periorbital swelling ENT exam: Present: mucous membranes moist, TM's normal bilaterally, normal external ear exam. Absent: normal exam, normal oropharynx (Dental caries, dental fracture, right upper and lower no trismus no difficulty swallowing) Neck exam: Present: normal inspection, full ROM. Absent: tenderness, meningismus, lymphadenopathy Respiratory exam: Present: normal lung sounds bilaterally. Absent: respiratory distress, wheezes, rales, rhonchi, stridor Cardiovascular Exam: Present: regular rate, normal rhythm, normal heart sounds. Absent: systolic murmur, diastolic murmur, rubs, gallop, clicks Course Vital Signs 05/18/20 18:29 Temperature 98.7 F Pulse Rate 92 Respiratory 18 Rate Blood Pressure 159/88 O2 Sat by Pulse 98 Oximetry Medical Decision Making - Medical Decision Making Patient was provided pain control, be discharged on oral antibiotics. Patient is advised follow up with dentist and return for any worsening change in symptoms. Disposition Clinical Impression: Fracture of tooth, Dental caries Disposition: HOME SELF-CARE Condition: Stable Instructions (If sedation given, give patient instructions): Toothache (ED) Additional Instructions: Please return to the Emergency Department if symptoms worsen or any other alexys rns. Prescriptions: Clindamycin HCl 300 mg PO Q6HR #40 cap Naproxen [EC-Naproxen] 500 mg PO BID #20 tablet. Is patient prescribed a controlled substance at d/c from ED?: No Referrals: Allen Watkins DO [Primary Care Provider] - 1-2 days Time of Disposition: 18:44
== END 2020-05-18 18:53 | disposition home or self-care (01) ==
LOC: EC 18:26
DX: S02.5XXA Fracture of tooth (traumatic), initial encounter for closed fracture (principal); K02.9 Dental caries, unspecified; F41.9 Anxiety disorder, unspecified; E78.5 Hyperlipidemia, unspecified; I10 Essential (primary) hypertension; Z79.02 Long term (current) use of antithrombotics/antiplatelets; Z79.899 Other long term (current) drug therapy; Z88.6 Allergy status to analgesic agent; Z86.73 Personal history of transient ischemic attack (TIA), and cerebral infarction without residual deficits; Z90.710 Acquired absence of both cervix and uterus; X58.XXXA Exposure to other specified factors, initial encounter
CPT/HCPCS: 99282

== ENCOUNTER → 2020-09-17 | Outpatient (CLI) | payer OTHER ==
--- NOTE | 2020-09-18 10:31 | XR ---
Right shoulder HISTORY: Pain 3 views the right shoulder Bone mineralization, joint spaces and alignment are maintained, small bone island suspected in the hu meral head. Right lung as visualized is normal. There are overlying artifacts. There is no fracture o r dislocation. Mild spurring present at the acromioclavicular joint. IMPRESSION: Mild acromioclavicular joint arthropathy.
== END | disposition home or self-care (01) ==
LOC: RADXRYALE 16:33
PROVIDERS: ATTEND Physician Assistant
DX: M19.011 Primary osteoarthritis, right shoulder (principal)

== ENCOUNTER → 2020-09-29 | Outpatient (CLI) | payer OTHER ==
--- NOTE | 2020-09-29 13:18 | US ---
EXAMINATION TYPE: US kidneys/renal and bladder DATE OF EXAM: 09/29/2020 COMPARISON: US CLINICAL HISTORY: M54.5 Low back pain, R31.2 microscopic hematuria. Pt states left flank pain/ micros copic hematuria EXAM MEASUREMENTS: Right Kidney: 11.3 x 4.7 x 4.8 cm Left Kidney: 10.4 x 5.5 x 5.1 cm Right Kidney: Cyst mid/lat= 1.2 x 1.2 x 1.0 cm, adjacent 0.7 cm calcification with shadowing Left Kidney: Appeared wnl Bladder: wnl Bilateral Jets seen: Yes No hydronephrosis. IMPRESSION: 1. Nonobstructing 7 mm right renal calculus. 2. Right renal cyst.
== END | disposition home or self-care (01) ==
LOC: RADUSWWP 12:37
PROVIDERS: ATTEND Family Medicine
DX: N20.0 Calculus of kidney (principal); N28.1 Cyst of kidney, acquired
CPT/HCPCS: 76770

== ENCOUNTER 2021-08-27 08:51 | Day surgery (SDC) | payer OTHER ==
[2021-08-26 10:03] VITALS: BMI 27.3
[~2021-08-27 08:51] MED LIST changes: -DEXAMETHASONE SOD PHOSPHATE 10 MG/ML 1 ML VIAL IV ONE; +DEXAMETHASONE SOD PHOSPHATE 4 MG/ML 1 ML VIAL IV ONE; +LIDOCAINE 1% (10MG/ML) FOR IV START INTRADERMA PRN; -MORPHINE SULFATE 4 MG/ML SYRINGE IV PRN; -ONDANSETRON 4 MG/2 ML VIAL IVP ONE; -SCOPOLAMINE 1.5MG/72HR PATCH TRANSDERM ONE; -ceFAZolin IN SWFI 2 GM/20 ML SYRINGE IVP ONE
[2021-08-27] MEDS ORDERED: LIDOCAINE 1% (10MG/ML) FOR IV START SQ ONE (10:08)
[2021-08-27] MEDS: ONDANSETRON 4 MG/2 ML VIAL IVP ONE ×2 (10:08→12:49)
[2021-08-27] MEDS ORDERED: MIDAZOLAM 2 MG/2 ML VIAL IV ONE (10:25)
--- NOTE | 2021-08-27 10:51 | P.ANPRN ---
Procedure Note - Anesthesia - Nerve Block Performed Right Adductor Canal Single Time Out Performed: Yes (1024) Date of Procedure: 08/27/21 Procedure Start Time: 10:24 Procedure Stop Time: 10:32 Location of Patient: PreOp Indication: Acute Post-Operative Pain, Dx/Pain Location (Right foot), Requested by Surgeon Specifically requested for management of pain by DrMari: Fernando Price Sedation Type: Sedate with meaningful contact maintained Preparation: Sterile Prep Position: Supine Catheter: None Needle Types: Pajunk (100 mm) Needle Gauge: 21 Ultrasound used to visualize needle placement: Yes Ultrasound used to observe medication spread: Yes Injectate: 0.5% Ropivacaine (see comment for volume) (20 cc + 1 mg of decadron) Blood Aspirated: No Pain Paresthesia on Injection Noted: No Resistance on Injection: Normal Image Stored and Saved: Yes Events: Uneventful and Well Tolerated Right Popliteal Single Time Out Performed: Yes Date of Procedure: 08/27/21 Procedure Start Time: 10:33 Procedure Stop Time: 10:39 Location of Patient: PreOp Indication: Acute Post-Operative Pain, Dx/Pain Location (Right Foot), Requested by Surgeon Specifically requested for management of pain by Dr.: Fernando Price Sedation Type: Sedate with meaningful contact maintained Preparation: Sterile Prep Position: Left Lateral Catheter: None Needle Types: Pajunk Needle Gauge: 21 (100 mm) Ultrasound used to visualize needle placement: Yes Ultrasound used to observe medication spread: Yes Injectate: 0.5% Ropivacaine (see comment for volume) (15cc + decadron 3 mg) Blood Aspirated: No Pain Paresthesia on Injection Noted: No Resistance on Injection: Normal Image Stored and Saved: Yes Events: Uneventful and Well Tolerated
[2021-08-27] MEDS ORDERED: PROPOFOL 10 MG/ML 20 ML VIAL IV ONE (10:55)
[2021-08-27] MEDS ORDERED: LIDOCAINE 1% INJ 10MG/ML (20 ML MDV) ONE (10:55)
[2021-08-27] MEDS ORDERED: DEXAMETHASONE SOD PHOSPHATE 4 MG/ML 1 ML VIAL ONE (10:55)
[2021-08-27] MEDS ORDERED: ePHEDrine 50 MG/ML 1 ML VIAL ONE (10:55)
[2021-08-27] MEDS ORDERED: fentaNYL (PF) 50 MCG/ML 2 ML AMP ONE (10:55)
[2021-08-27] MEDS ORDERED: ROPIVACAINE 5 MG/ML 30 ML VIAL ONE (10:55)
[2021-08-27] MEDS ORDERED: LACTATED RINGERS 1,000 ML IV ONE (12:09)
[2021-08-27] MEDS ORDERED: BUPIVACAINE (PF) 0.25% 30 ML VIAL SQ ONE (12:10)
[2021-08-27 12:34] VITALS: TEMP 97.9
[2021-08-27] MEDS: HYDROmorphone 0.5 MG/0.5 ML SYRINGE IVP PRN ×2 (12:40→12:47)
--- NOTE | 2021-08-27 12:47 | P.OP ---
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 Hammertoe fourth digit right foot Postoperative Diagnosis: 1. Same 2. Same Procedure(s) Performed: 1. Revision first metatarsal phalangeal joint arthrodesis right foot 2. Tenotomy and capsulotomy fourth digit right foot Implants: Arthrex MaxForce plate and screws Arthrex AlloMatrix Anesthesia: ROSARIO Surgeon: Fernando Price Estimated Blood Loss (ml): 2 Pathology: none sent Condition: stable Disposition: PACU Operative Findings: Fibrotic tissue interposed between previous arthrodesis site. Hardware was intact Description of Procedure: Prior to the patient being brought to the operating room, anesthesia administered a nerve block on the right lower extremity. The patient was brought into the operative room placed on table supine position. Timeout was taken to confirm correct patient identifiers, correct site procedure, and correct site of surgery. When the staff in the room were in agreement with the timeout, the patient was induced and placed under general anesthesia. A well- padded tourniquet was placed on the ankle. The foot was then prepped and draped in usual manner. The foot was exsanguinated with an Esmarch bandage and the tourniquet inflated to 250 mmHg. Attention directed over the first metatarsal phalangeal joint where a linear incision was made between the extensor hallucis longus tendon and the neurovascular structures. The incision was deepened down to the subcutaneous tissue careful to identify, avoid, and retract any neurovascular structures and cauterize any bleeding vessels. A linear periosteal and capsular incision was made medial to the extensor hallucis longus tendon and over the plate from the previous surgery. The soft tissue was dissected free from the screws and plate. All screws were removed intact without complication. The plate was freed and then removed. A Popeye was used to remove any bone overgrowth surrounding the plate. The pseudoarthrosis was identified and the soft tissue resected. The joint was able to be distracted so that there was full visualization. A Popeye was used to remove any interposing soft tissue. Then an osteotomy was performed through the base of the proximal phalanx. The osteotomy was done with a wider base medially then laterally to correct the angular deformity of the toe. That portion of bone was then freed from surrounding soft tissue and removed. Then the arthrodesis site was held in compression and the saw was inserted at the arthrodesis line to level the surfaces so there was complete bony contact and at the same time resecting the abnormal bone on the first metatarsal head. A 2 mm drill bit was then used to aggressively fenestrate both surfaces. The wound is then thoroughly irrigated with antibiotic saline. Approximately 1-1 mL of Arthrex bone morphogenic protein material was placed between the arthrodesis segments. Then the MaxForce plate was placed dorsally across the arthrodesis site utilizing aligned in the plate to placed over the joint surface. It was temporarily fixated in position was checked under fluoroscopy. Once position was acceptable locking screws were placed in the distal holes in the proximal phalanx. A guidewire was then placed across the arthrodesis site to hold the joint in its position. Then the drill hole for the compression device of the plate was made the compression device inserted and then utilized to further compress the arthrodesis site. Once that was completed threaded olive wire was used to lock the plate in place and then the second compression screw was placed proximally to lock the plate and further compress the joint. A second nonlocking screw was placed in the proximal portion of the plate into the metatarsal and the last screw placed with locking screw in the most proximal portion of the plate on the metatarsal. Final fluoroscopic imaging showed complete compression across the arthrodesis site and proper alignment of the great toe. The wound was again irrigated with antibiotic saline. Deep closure was done with 2-0 Vicryl. Subcu closure done for Monocryl. And skin closure done with 3-0 Stratafix in a running subcuticular manner. Tension was then directed to the fourth digit that had a semi-fixed flexion contracture of the distal and proximal interphalangeal joints. A small stab incision was made on the lateral aspect of the fourth toe near the proximal interphalangeal joint. The blade was advanced against the bone and then rotated plantarly and then the digit was extended to resect the flexor tendon. Then the blade was rotated dorsally and the capsule released on the plantar surface of the proximal interphalangeal joint. Once that was done the digit was able to be manually manipulated into a more rectus alignment. The incision made for the surgery was closed with a single 3-0 nylon stitch. Dermal glue was applied to the incision over the first metatarsal phalangeal joint and allowed to dry. Steri-Strips are placed over the incision, then a jumpstart dressing, and then a bulky dry dressing. The tourniquet was released and capillary refill return to all digits on the foot. Patient was then placed in a well-padded, well molded plaster posterior mold/sugar tong splint. The ankle and foot were held in neutral position until the splint was dried. Anesthesia was then reversed and the patient was taken recovery with vital signs stable
[2021-08-27] MEDS ORDERED: diphenhydrAMINE 50 MG/ML 1 ML VIAL IVP ONE (12:58)
[2021-08-27 14:22] VITALS: BP 158/85; PULSE 84; RESP 18
== END 2021-08-27 14:37 | disposition home or self-care (01) ==
LOC: OR 08:51
PROVIDERS: ATTEND Podiatrist
DX: M96.0 Pseudarthrosis after fusion or arthrodesis (principal); M20.41 Other hammer toe(s) (acquired), right foot; M20.12 Hallux valgus (acquired), left foot; E78.5 Hyperlipidemia, unspecified; F41.9 Anxiety disorder, unspecified; I10 Essential (primary) hypertension; R45.0 Nervousness; M79.7 Fibromyalgia; Z86.73 Personal history of transient ischemic attack (TIA), and cerebral infarction without residual deficits; Z79.899 Other long term (current) drug therapy; Z79.02 Long term (current) use of antithrombotics/antiplatelets; Z88.8 Allergy status to other drugs, medicaments and biological substances; Z88.5 Allergy status to narcotic agent; Z87.891 Personal history of nicotine dependence; Z98.890 Other specified postprocedural states; Z90.710 Acquired absence of both cervix and uterus; Z82.49 Family history of ischemic heart disease and other diseases of the circulatory system
CPT/HCPCS: 64447; 64445; 76942; 28750; 28272; C1713; J2250; J1200; J1100; J0690; J2405; J2001; J3010; J2795; J2704; J1170

== ENCOUNTER → 2021-10-28 | Outpatient (CLI) | payer OTHER ==
--- NOTE | 2021-10-28 15:50 | XR ---
EXAMINATION TYPE: XR finger RT DATE OF EXAM: 10/28/2021 COMPARISON: NONE HISTORY: Pain TECHNIQUE: Three views are submitted. FINDINGS: Severe arthropathy of the first carpal metacarpal joint. DIP joint arthropathy noted. IMPRESSION: 1. No definite acute fracture or dislocation if symptoms persist, follow-up study in 7 to 10 days wo uld be suggested. 2. Severe osteoarthritis.
== END | disposition home or self-care (01) ==
LOC: RADXRYALE 15:03
PROVIDERS: ATTEND Physician Assistant
DX: M19.041 Primary osteoarthritis, right hand (principal)

== ENCOUNTER → 2022-12-07 | Outpatient (CLI) | payer OTHER ==
--- NOTE | 2022-12-07 15:02 | XR ---
EXAMINATION TYPE: XR foot complete RT DATE OF EXAM: 12/07/2022 COMPARISON: 06/02/2017 HISTORY: Pain TECHNIQUE: Three views are submitted. FINDINGS: The osseous structures are intact. There is no acute fracture or dislocation. Postsurgical change across the first digit. There is a chronic-appearing deformity of the cortex of the proximal phalanx second digit. Intraosseous lesion not excluded. IMPRESSION: 1. No acute fracture or dislocation. If symptoms persist, follow-up exam in 7 to 10 days could be ob tained. 2. Postsurgical change involving the first digit. 3. There is mild irregularity along the proximal phalanx of the second digit medial cortex. Would rec ommend bone scan for further evaluation.
== END | disposition home or self-care (01) ==
LOC: RADXRYALE 13:45
PROVIDERS: ATTEND Physician Assistant Medical
DX: M79.671 Pain in right foot (principal)

== ENCOUNTER 2022-12-20 09:09 | Inpatient (IN) | payer OTHER ==
[2022-12-20] MEDS ORDERED: SODIUM CHLORIDE 0.9% 1,000 ML IV STA (09:35)
--- NOTE | 2022-12-20 09:37 | ED ---
General Adult HPI - General Chief complaint: Recheck/Abnormal Lab/Rx Stated complaint: vomiting,hot flash Time Seen by Provider: 12/20/22 09:22 Source: patient, RN notes reviewed, old records reviewed Mode of arrival: ambulatory Limitations: no limitations - History of Present Illness Initial comments: 62-year-old female presents for evaluation of nausea vomiting and generalized weakness per patient states that she developed a vomiting illness 2 or 3 days prior which was quite significant, multiple episodes of vomiting and diaphoresis. She states that that has improved she's had no abdominal pain or chest pain. She's had episodes weakness and diaphoresis. There is no associated chest pain or abdominal pain. Patient states she is postmenopausal. She denies fever. Denies headache or focal numbness or weakness. - Related Data Home Medications Medication Instructions Recorded Confirmed ALPRAZolam [Xanax] 0.25 mg PO QAM 01/25/15 08/27/21 Atorvastatin [Lipitor] 40 mg PO HS 01/25/15 08/27/21 Clopidogrel [Plavix] 75 mg PO DAILY 01/25/15 08/26/21 Citalopram Hydrobromide [CeleXA] 40 mg PO QAM 05/31/17 08/27/21 Cyclobenzaprine [Flexeril] 10 mg PO DAILY 05/31/17 08/27/21 Gabapentin [Neurontin] 300 mg PO TID 05/31/17 08/27/21 Losartan-Hctz 50-12.5 mg [Hyzaar 1 tab PO QAM 05/31/17 08/27/21 50-12.5] Mirabegron [Myrbetriq] 50 mg PO QAM 08/26/21 08/27/21 Previous Rx's Medication Instructions Recorded HYDROcodone/APAP 7.5-325MG [[place] 1 tab PO Q4-6H PRN #30 tab 08/27/21 7.5-325] Allergies Allergy/AdvReac Type Severity Reaction Status Date / Time tramadol Allergy Itching Verified 12/20/22 09:18 Review of Systems ROS Statement: Those systems with pertinent positive or pertinent negative responses have been documented in the HPI. ROS Other: All systems not noted in ROS Statement are negative. Past Medical History Past Medical History: CVA/TIA, Fibromyalgia, Hyperlipidemia, Hypertension Additional Past Medical History / Comment(s): rt foot pain, Stroke 2015 or 2016- memory loss History of Any Multi-Drug Resistant Organisms: None Reported Past Surgical History: Hysterectomy, Orthopedic Surgery Additional Past Surgical History / Comment(s): fusion rt foot surgery,carotid , carpel tunnel bilateral, bilaterl hand basal joint, and bilateral foot surgery, partial Hyst Past Anesthesia/Blood Transfusion Reactions: No Reported Reaction Past Psychological History: Anxiety Smoking Status: Former smoker Past Alcohol Use History: None Reported Past Drug Use History: None Reported - Past Family History Sister(s) Family Medical History: Cancer Additional Family Medical History / Comment(s): ovarian General Exam Limitations: no limitations General appearance: alert, in no apparent distress Head exam: Present: atraumatic, normocephalic Eye exam: Present: normal appearance, PERRL ENT exam: Present: mucous membranes dry Neck exam: Present: normal inspection. Absent: tenderness, meningismus Respiratory exam: Present: normal lung sounds bilaterally. Absent: respiratory distress, wheezes Cardiovascular Exam: Present: regular rate, normal rhythm GI/Abdominal exam: Present: soft. Absent: distended, tenderness, guarding Extremities exam: Present: normal inspection, normal capillary refill Neurological exam: Present: alert, oriented X3, CN II-XII intact. Absent: motor sensory deficit Psychiatric exam: Present: normal affect, normal mood Skin exam: Present: warm, dry, intact. Absent: cyanosis, diaphoretic Course Vital Signs 12/20/22 12/20/22 12/20/22 09:12 10:06 11:06 Temperature 98.1 F Pulse Rate 80 63 59 L Respiratory 20 17 17 Rate Blood Pressure 106/70 111/69 O2 Sat by Pulse 96 98 Oximetry 12/20/22 12/20/22 11:48 12:24 Temperature Pulse Rate 63 57 L Respiratory 17 17 Rate Blood Pressure 141/82 O2 Sat by Pulse 97 Oximetry Medical Decision Making - Medical Decision Making Was pt. sent in by a medical professional or institution (, PA, SKEIN BANDER, urgent care, hospital, or fpc...) When possible be specific @ -No Did you speak to anyone other than the patient for history (EMS, parent, family, police, friend...)? What history was obtained from this source @ -No Did you review nursing and triage notes (agree or disagree)? Why? @ -I reviewed and agree with nursing and triage notes Were old charts reviewed (outside hosp., previous admission, EMS record, old EKG, old radiological studies, urgent care reports/EKG's, fpc records)? Report findings @ -No old charts were reviewed Differential Diagnosis (chest pain, altered mental status, abdominal pain women, abdominal pain men, vaginal bleeding, weakness, fever, dyspnea, syncope, headache, dizziness, GI bleed, back pain, seizure, CVA, palpatations, mental health, musculoskeletal)? @ -Differential Weakness: Hypoglycemia, shock, sepsis, hyponatremia, anemia, infection, TX, ETOH, adverse medicine reaction, overdose, stroke, this is not meant to be an all-inclusive list. EKG interpreted by me (3pts min.). @ -[EKG: Sinus rhythm with a ventricular rate of 60, MA interval 176, QRS duration 96, QTC 427, T-wave inversion in the lateral precordial leads X-rays interpreted by me (1pt min.). @ -Chest x-ray without acute process CT interpreted by me (1pt min.). @ -None done U/S interpreted by me (1pt. min.). @ -None done What testing was considered but not performed or refused? (CT, X-rays, U/S, labs)? Why? @ -None What meds were considered but not given or refused? Why? @ -None Did you discuss the management of the patient with other professionals (professionals i.e. , PA, SKEIN BANDER, lab, RT, psych nurse, social sciences professor, dye beck reel operator, teacher, special technical operations officer, high risk case manager)? Give summary @ -[Sound Was smoking cessation discussed for >3mins.? @ -No Was critical care preformed (if so, how long)? @ -No Were there social determinants of health that impacted care today? How? (Homelessness, low income, unemployed, alcoholism, drug addiction, transportation, low edu. Level, literacy, decrease access to med. care, retirement, rehab)? @ -No Was there de-escalation of care discussed even if they declined (Discuss DNR or withdrawal of care, Hospice)? DNR status @ -No What co-morbidities impacted this encounter? (DM, HTN, Smoking, COPD, CAD, Cancer, CVA, ARF, Chemo, Hep., AIDS, mental health diagnosis, sleep apnea, morbid obesity)? @ -Previous CVA Was patient admitted / discharged? Hospital course, mention meds given and route, prescriptions, significant lab abnormalities, going to OR and other pertinent info. @ -62-year-old female presenting with nausea vomiting, weakness, diaphoresis. No active chest pain. EKG shows T-wave inversion in the lateral precordium without ST segment elevation. I did obtain laboratory testing which revealed a leukocytosis, stable hemoglobin, she has an acute kidney injury with elevated creatinine. Her troponin is 0.094. She has no active chest pain and no prior history of cardiac disease. She will be admitted with non-ST segment elevated TX, and acute kidney injury. . Cardiology Dr. Welsh is aware Undiagnosed new problem with uncertain prognosis? @ -No Drug Therapy requiring intensive monitoring for toxicity (Heparin, Nitro, Insulin, Cardizem)? @ -No Were any procedures done? @ -No Diagnosis/symptom? @ -Acute kidney injury, NSTEMI Acute, or Chronic, or Acute on Chronic? @ -[Acute Uncomplicated (without systemic symptoms) or Complicated (systemic symptoms)? @ -default Side effects of treatment? @ -No Exacerbation, Progression, or Severe Exacerbation? @ -No Poses a threat to life or bodily function? How? (Chest pain, USA, TX, pneumonia, PE, COPD, DKA, ARF, appy, cholecystitis, CVA, Diverticulitis, Homicidal, Suicidal, threat to staff... and all critical care pts) @ Yes, cardiac ischemia - Lab Data Result diagrams: 12/20/22 10:13 12/20/22 10:13 Lab Results 12/20/22 12/20/22 12/20/22 Range/Units 10:13 10:13 10:13 WBC 15.6 H (3.8-10.6) k/uL RBC 4.89 (3.80-5.40) m/uL Hgb 15.7 (11.4-16.0) gm/dL Hct 46.9 H (34.0-46.0) % MCV 95.9 (80.0-100.0) fL MCH 32.2 (25.0-35.0) pg MCHC 33.5 (31.0-37.0) g/dL RDW 12.8 (11.5-15.5) % Plt Count 319 (150-450) k/uL MPV 7.6 Neutrophils % 77 % Lymphocytes % 15 % Monocytes % 5 % Eosinophils % 1 % Basophils % 0 % Neutrophils # 12.0 H (1.3-7.7) k/uL Lymphocytes # 2.4 (1.0-4.8) k/uL Monocytes # 0.8 (0-1.0) k/uL Eosinophils # 0.1 (0-0.7) k/uL Basophils # 0.0 (0-0.2) k/uL Sodium 138 (137-145) mmol/L Potassium 3.4 L (3.5-5.1) mmol/L Chloride 103 (98-107) mmol/L Carbon Dioxide 26 (22-30) mmol/L Anion Gap 9 mmol/L BUN 26 H (7-17) mg/dL Creatinine 1.39 H (0.52-1.04) mg/dL Est GFR (CKD-EPI)AfAm 48 (>60 ml/min/1.73 sqM) Est GFR (CKD-EPI)NonAf 41 (>60 ml/min/1.73 sqM) Glucose 110 H (74-99) mg/dL Calcium 10.0 (8.4-10.2) mg/dL Magnesium 2.2 (1.6-2.3) mg/dL Total Bilirubin 0.4 (0.2-1.3) mg/dL AST 27 (14-36) U/L ALT 22 (4-34) U/L Alkaline Phosphatase 67 (38-126) U/L Troponin I (0.000-0.034) ng/mL Total Protein 7.9 (6.3-8.2) g/dL Albumin 4.7 (3.5-5.0) g/dL Urine Color Light Red Urine Appearance Cloudy H (Clear) Urine pH 5.5 (5.0-8.0) Ur Specific [place] 1.025 (1.001-1.035) Urine Protein 2+ H (Negative) Urine Glucose (UA) Negative (Negative) Urine Ketones Negative (Negative) Urine Blood Moderate H (Negative) Urine Nitrite Negative (Negative) Urine Bilirubin Negative (Negative) Urine Urobilinogen 2.0 (<2.0) mg/dL Ur Leukocyte Esterase Small H (Negative) Urine RBC 8 H (0-5) /hpf Urine WBC 6 H (0-5) /hpf Ur Squamous Epith Cells 10 H (0-4) /hpf Hyaline Casts 1 (0-2) /lpf Urine Mucus Few H (None) /hpf 12/20/22 Range/Units 10:13 WBC (3.8-10.6) k/uL RBC (3.80-5.40) m/uL Hgb (11.4-16.0) gm/dL Hct (34.0-46.0) % MCV (80.0-100.0) fL MCH (25.0-35.0) pg MCHC (31.0-37.0) g/dL RDW (11.5-15.5) % Plt Count (150-450) k/uL MPV Neutrophils % % Lymphocytes % % Monocytes % % Eosinophils % % Basophils % % Neutrophils # (1.3-7.7) k/uL Lymphocytes # (1.0-4.8) k/uL Monocytes # (0-1.0) k/uL Eosinophils # (0-0.7) k/uL Basophils # (0-0.2) k/uL Sodium (137-145) mmol/L Potassium (3.5-5.1) mmol/L Chloride (98-107) mmol/L Carbon Dioxide (22-30) mmol/L Anion Gap mmol/L BUN (7-17) mg/dL Creatinine (0.52-1.04) mg/dL Est GFR (CKD-EPI)AfAm (>60 ml/min/1.73 sqM) Est GFR (CKD-EPI)NonAf (>60 ml/min/1.73 sqM) Glucose (74-99) mg/dL Calcium (8.4-10.2) mg/dL Magnesium (1.6-2.3) mg/dL Total Bilirubin (0.2-1.3) mg/dL AST (14-36) U/L ALT (4-34) U/L Alkaline Phosphatase (38-126) U/L Troponin I 0.094 H* (0.000-0.034) ng/mL Total Protein (6.3-8.2) g/dL Albumin (3.5-5.0) g/dL Urine Color Urine Appearance (Clear) Urine pH (5.0-8.0) Ur Specific [place] (1.001-1.035) Urine Protein (Negative) Urine Glucose (UA) (Negative) Urine Ketones (Negative) Urine Blood (Negative) Urine Nitrite (Negative) Urine Bilirubin (Negative) Urine Urobilinogen (<2.0) mg/dL Ur Leukocyte Esterase (Negative) Urine RBC (0-5) /hpf Urine WBC (0-5) /hpf Ur Squamous Epith Cells (0-4) /hpf Hyaline Casts (0-2) /lpf Urine Mucus (None) /hpf Disposition Clinical Impression: CHRISTINA (acute kidney injury), NSTEMI (non-ST elevated myocardial infarction) Disposition: ADMITTED IP TO THIS HOSP Condition: Stable Is patient prescribed a controlled substance at d/c from ED?: No Time of Disposition: 12:05
[2022-12-20 10:37] LABS: Basophils % (A) 0 %; Eosinophils # (A) 0.1 k/uL (0-0.7); Eosinophils % (A) 1 %; HCT 46.9 % (34.0-46.0); HGB 15.7 gm/dL (11.4-16.0); Lymphocytes # (A) 2.4 k/uL (1.0-4.8); Lymphocytes % (A) 15 %; MCH 32.2 pg (25.0-35.0); MCHC 33.5 g/dL (31.0-37.0); MCV 95.9 fL (80.0-100.0); Mean Platelet Volume 7.6; Monocytes # (A) 0.8 k/uL (0-1.0); Monocytes % (A) 5 %; Neutrophils % (A) 77 %; Platelet Count 319 k/uL (150-450); RBC 4.89 m/uL (3.80-5.40); RDW 12.8 % (11.5-15.5); WBC 15.6 k/uL (3.8-10.6)
[2022-12-20 10:46] LABS: ALT 22 U/L (4-34); AST 27 U/L (14-36); African American GFR (CKD) 48 (>60 ml/min/1.73 sqM); Albumin 4.7 g/dL (3.5-5.0); Alkaline Phosphatase 67 U/L (38-126); Anion Gap 9 mmol/L; Blood Urea Nitrogen 26 mg/dL (7-17); Carbon Dioxide 26 mmol/L (22-30); Chloride 103 mmol/L (98-107); Glucose 110 mg/dL (74-99); Magnesium 2.2 mg/dL (1.6-2.3); Non-African American GFR(CKD) 41 (>60 ml/min/1.73 sqM); Potassium 3.4 mmol/L (3.5-5.1); Sodium 138 mmol/L (137-145); Total Bilirubin 0.4 mg/dL (0.2-1.3); Total Protein 7.9 g/dL (6.3-8.2)
[2022-12-20 10:50] LABS: Appearance,Urine Cloudy (Clear); Bilirubin,Urine Negative (Negative); Blood,Urine Moderate (Negative); Color,Urine Light Red; Glucose,Urine (UA) Negative (Negative); Ketones,Urine Negative (Negative); Leukocyte Esterase,Urine Small (Negative); Nitrite,Urine Negative (Negative); PH, Urine 5.5 (5.0-8.0); Protein,Urine 2+ (Negative); Specific Gravity,Urine 1.025 (1.001-1.035)
[2022-12-20 10:53] LABS: Hyaline Casts,Urine 1 /lpf (0-2); Mucus,Urine Few /hpf; RBC,Urine 8 /hpf (0-5)
[2022-12-20 10:54] LABS: Squamous Epithelial Cell,Urine 10 /hpf (0-4); WBC,Urine 6 /hpf (0-5)
[2022-12-20] MEDS ORDERED: ASPIRIN 325 MG TAB PO STA ×2 (11:15→12:32)
[2022-12-20] MEDS ORDERED: HEPARIN SODIUM 1,000 UN/ML (10ML VL) IV ONE (11:16)
[2022-12-20] MEDS ORDERED: HEPARIN SODIUM 1,000 UN/ML (10ML VL) IV PRN (11:16)
[2022-12-20] MEDS ORDERED: HEPARIN SOD,PORK IN 0.45% NACL 25,000 UNIT in 0.45% NACL 1 250ML.BAG IV SCH (11:30)
[2022-12-20] MEDS: SODIUM CHLORIDE 0.9% 1,000 ML IV SCH (11:51)
--- NOTE | 2022-12-20 11:57 | XR ---
EXAMINATION TYPE: XR chest 2V DATE OF EXAM: 12/20/2022 COMPARISON: NONE TECHNIQUE: PA and lateral views submitted. HISTORY: Syncope FINDINGS: The lungs are clear and there is no pneumothorax, pleural effusion, or focal pneumonia. Heart size normal and no overt failure. Osseous structures demonstrate hypertrophic and degenerative changes of the spine. Hyperexpansion of the lungs. There is AC joint arthropathy on the right. Atherosclerotic c hange aorta. IMPRESSION: 1. No acute process.
[2022-12-20] MEDS ORDERED: NALOXONE 0.4 MG/ML 1 ML VIAL IV PRN (12:00)
[2022-12-20] MEDS ORDERED: ONDANSETRON 4 MG/2 ML VIAL IVP PRN (12:00)
[2022-12-20] MEDS ORDERED: ALPRAZolam 0.5 MG TAB PO PRN (12:32)
[2022-12-20] MEDS ORDERED: NITROGLYCERIN SL TABS 0.4 MG TAB SUBLINGUAL PRN (12:32)
[2022-12-20] MEDS ORDERED: ATORVASTATIN 80 MG TAB PO STA (12:32)
[2022-12-20] MEDS ORDERED: ALPRAZolam 0.25 MG TAB PO PRN (12:32)
--- NOTE | 2022-12-20 13:17 | P.CRDCN ---
History of Present Illness Consult date: 12/20/22 History of present illness: History of present illness: This is a 62-year-old female patient with no previous cardiac history. She has a past mental history of hypertension, hyperlipidemia, CVA 10 years ago on Plavix, depression, generalized anxiety disorder. Patient presented to the hospital due to sweats. She states that she had sweat running down her face and that she had episode of vomiting and was so tired and weak and fatigued afterward she had to lay on the floor in the bathroom. No abdominal pain. No chest pain. She continues have some generalized fatigue and weakness. She states she also has dyspnea on exertion that's intermittent for the past couple months. She is usually very active. She smokes occasional cigarettes. Patient is been started on heparin drip EKG sinus rhythm with ST-T wave changes Chest x-ray: No acute process WBC 15.6, hemoglobin 15.7, platelet count 319. Sodium 138, potassium 3.4, BUN 26 creatinine 1.39. Glucose 110. Troponin 0.094. Urinalysis moderate blood, contaminated specimen Home cardiac medications: Home medications are confirmed at the time of this dictation Review Of Systems: At the time of my evaluation: Constitutional: No fever, no chills. No weakness, fatigue or lethargy. Reports sweats EENT: No headache. No dizziness. Lungs: No shortness of breath, cough, no sputum production. No wheezing. Cardiovascular: No chest pain, no lower extremity edema. No palpitations. No paroxysmal nocturnal dyspnea. No orthopnea. No lightheadedness or dizziness. No syncopal episodes. Abdominal: No abdominal pain. Reports nausea, vomiting. No diarrhea. No constipation. No bloody or tarry stools. Musculoskeletal: No myalgias. No muscle weakness, no frequent falls. Integumentary: No wounds. No rash. No unusual bruising. Neurologic: No aphasia. No facial droop. No change in mentation. No head injury. No headache. Physical examination: Gen: This is a 62-year-old female. She is resting on ER stretcher and appears to be comfortable in no acute distress VS: reviewed HEENT: Head is atraumatic, normocephalic. Pupils equal, round. Sclerae is anicteric. NECK: Supple. No JVD. . LUNGS: Clear to auscultation. No wheezes or rhonchi. No intercostal retractions. HEART: Regular rate and rhythm. No murmur. ABDOMEN: Soft No tenderness. EXTREMITIES: No pedal edema. No calf tenderness. NEUROLOGICAL: Patient is awake, alert and oriented x3. Assessment: Chest pain, possible non-ST elevated myocardial infarction History of CVA Hypertension Hyperlipidemia Tobacco use Plan: Obtain repeat troponins Continue heparin drip Start patient on aspirin 81 mg daily, Lipitor 80 mg daily, Lopressor 12.5 mg twice daily Obtain 2-D echocardiogram and Doppler study to assess cardiac structure and function Monitor renal function Hydrate patient overnight and scheduled for cardiac catheterization in the morning with Dr. Silva Welsh. Further recommendations to follow based upon clinical course Thank you kindly for this consultation. Nurse practitioner note has been reviewed, I agree with documented findings and plan of care. Patient was seen and examined. Past Medical History Past Medical History: CVA/TIA, Fibromyalgia, Hyperlipidemia, Hypertension Additional Past Medical History / Comment(s): rt foot pain, Stroke 2014 or 2016- memory loss History of Any Multi-Drug Resistant Organisms: None Reported Past Surgical History: Hysterectomy, Orthopedic Surgery Additional Past Surgical History / Comment(s): fusion rt foot surgery,carotid , carpel tunnel bilateral, bilaterl hand basal joint, and bilateral foot surgery, partial Hyst Past Anesthesia/Blood Transfusion Reactions: No Reported Reaction Past Psychological History: Anxiety Smoking Status: Former smoker Past Alcohol Use History: None Reported Past Drug Use History: None Reported - Past Family History Sister(s) Family Medical History: Cancer Additional Family Medical History / Comment(s): ovarian Medications and Allergies Home Medications Medication Instructions Recorded Confirmed Type ALPRAZolam [Xanax] 0.25 mg PO QAM 01/25/15 08/27/21 History Atorvastatin [Lipitor] 40 mg PO HS 01/25/15 08/27/21 History Clopidogrel [Plavix] 75 mg PO DAILY 01/25/15 08/26/21 History Citalopram Hydrobromide [CeleXA] 40 mg PO QAM 05/31/17 08/27/21 History Cyclobenzaprine [Flexeril] 10 mg PO DAILY 05/31/17 08/27/21 History Gabapentin [Neurontin] 300 mg PO TID 05/31/17 08/27/21 History Losartan-Hctz 50-12.5 mg [Hyzaar 1 tab PO QAM 05/31/17 08/27/21 History 50-12.5] Mirabegron [Myrbetriq] 50 mg PO QAM 08/26/21 08/27/21 History HYDROcodone/APAP 7.5-325MG [[place] 1 tab PO Q4-6H PRN #30 tab 08/27/21 Rx 7.5-325] Allergies Allergy/AdvReac Type Severity Reaction Status Date / Time tramadol Allergy Itching Verified 12/20/22 09:18 Physical Exam Vitals: Vital Signs Temp Pulse Resp BP Pulse Ox 12/20/22 12:24 57 L 17 12/20/22 11:48 63 17 141/82 97 12/20/22 11:06 59 L 17 12/20/22 10:06 63 17 111/69 98 12/20/22 09:12 98.1 F 80 20 106/70 96 Intake and Output 12/19/22 12/20/22 12/20/22 22:59 06:59 14:59 Other: Weight 62.369 kg Results 12/20/22 10:13 12/20/22 10:13 Cardiac Enzymes 12/20/22 12/20/22 Range/Units 10:13 10:13 AST 27 (14-36) U/L Troponin I 0.094 H* (0.000-0.034) ng/mL CBC 12/20/22 Range/Units 10:13 WBC 15.6 H (3.8-10.6) k/uL RBC 4.89 (3.80-5.40) m/uL Hgb 15.7 (11.4-16.0) gm/dL Hct 46.9 H (34.0-46.0) % Plt Count 319 (150-450) k/uL Comprehensive Metabolic Panel 12/20/22 Range/Units 10:13 Sodium 138 (137-145) mmol/L Potassium 3.4 L (3.5-5.1) mmol/L Chloride 103 (98-107) mmol/L Carbon Dioxide 26 (22-30) mmol/L BUN 26 H (7-17) mg/dL Creatinine 1.39 H (0.52-1.04) mg/dL Glucose 110 H (74-99) mg/dL Calcium 10.0 (8.4-10.2) mg/dL AST 27 (14-36) U/L ALT 22 (4-34) U/L Alkaline Phosphatase 67 (38-126) U/L Total Protein 7.9 (6.3-8.2) g/dL Albumin 4.7 (3.5-5.0) g/dL Current Medications Generic Name Dose Route Start Last Admin Trade Name Freq PRN Reason Stop Dose Admin Acetaminophen 650 mg 12/20/22 12:00 Acetaminophen Tab 325 Mg Tab PO Q6HR PRN Mild Pain or Fever > 100.5 Heparin Sodium (Porcine) 0 unit 12/20/22 11:16 Heparin Sodium 1,000 Un/Ml (10ml Vl) IV PER PROTOCOL PRN Low PTT Protocol Sodium Chloride 1,000 mls @ 100 mls/hr 12/20/22 11:15 12/20/22 11:51 Saline 0.9% IV 100 mls/hr .Q10H JERONIMO Administration Heparin Sodium/Sodium Chloride 250 mls @ 7.484 mls/hr 12/20/22 11:30 12/20/22 11:53 25,000 unit/ Sodium Chloride IV 12 units/kg/hr .Q24H JERONIMO 7.484 mls/hr Administration Protocol 12 UNITS/KG/HR Naloxone HCl 0.2 mg 12/20/22 12:00 Naloxone 0.4 Mg/Ml 1 Ml Vial IV Q2M PRN Opioid Reversal Ondansetron HCl 4 mg 12/20/22 12:00 Ondansetron 4 Mg/2 Ml Vial IVP Q8HR PRN Nausea And Vomiting Intake and Output 12/19/22 12/20/22 12/20/22 22:59 06:59 14:59 Other: Weight 62.369 kg Patient Weight 12/21/22 06:59 Weight 62.369 kg 12/20/22 10:13 12/20/22 10:13
[2022-12-20] MEDS: NITROGLYCERIN OINT 1 INCH/GM PACKET TOPICAL SCH ×2 (15:17→15:19)
[2022-12-20] MEDS ORDERED: Potassium Replacement Protocol 1 EACH MISC MISCELLANE PRN (16:31)
[2022-12-20] MEDS: POTASSIUM CHLORIDE ER 20 MEQ TAB.ER PO SCH (17:31)
[2022-12-20] MEDS ORDERED: CYCLOBENZAPRINE 10 MG TAB PO PRN (18:33)
--- NOTE | 2022-12-20 18:33 | P.HPIM ---
History of Present Illness H&P Date: 12/20/22 Patient is a 62-year-old female with PMH of hypertension, dyslipidemia, history of CVA, anxiety presents the ED for constellation of symptoms. Patient reports excessive sweating has been ongoing since Monday. She reports episodes of dry heaving today. She went to work today and felt excessively weak. She denies any headache, lower extremity edema, fever or chills, cough, chest pain, shortness of breath, palpitations, changes in urination or bowel habits. No changes in appetite or weight. She denies any dizziness, numbness/weakness or tingling of extremities. In the ED, her vital signs are stable. CBC showed WBC count of 15.6 with neutrophilia. CMP showed potassium of 3.4, BUN of 26, creatinine 1.39, glucose of 110. Troponin was 0.094, 0.073. UA showed moderate blood, small leukocyte esterase. EKG showed sinus rhythm with ST-T wave changes. Patient is admitted for elevated troponin and cardiology evaluation. Pertinent positives and negatives as discussed in HPI, a complete review of systems was performed and all other systems are negative. General: non toxic, no distress, appears at stated age Derm: warm, dry Head: atraumatic, normocephalic, symmetric Eyes: EOMI, no lid lag, anicteric sclera Cardiovascular: S1S2 reg, no murmur Lungs: CTA bilateral, no rhonchi, no rales , no accessory muscle use Ext: no gross muscle atrophy, no edema, no contractures Neuro: no focal neuro deficits Psych: Alert, oriented, appropriate affect Non-ST elevation IA Acute kidney injury Leukocytosis Hypokalemia Based on my assessment of this patient, this patient meets a high complexity level of care. Patient has an acute diagnosis of non-ST elevation IA that poses a threat to li fe or bodily function. Non-ST elevation IA: Start aspirin 81 mg by mouth daily and Lipitor 80 mg by mouth daily. Start heparin drip at 12 units per kilogram per hour. Start metoprolol 12.5 mg by mouth twice a day. Telemetry monitoring. Cardiology consulted. Plans for cardiac cath tomorrow morning. Acute kidney injury: Unknown baseline creatinine. Continue normal saline at 100 mL per hour. Repeat BMP tomorrow morning. Leukocytosis: Unknown etiology. No signs of active infection. Continue to monitor. Hypokalemia: Replace via protocol. Patient names her mother decision maker if she can't make decisions for herself. Patient would like to be full code. I have reviewed the following banking consultant notes: Cardiology note reviewed. I have reviewed the results of the following tests: CBC, BMP, troponin, UA I have ordered the following tests: BMP ordered for tomorrow morning. Obtain echocardiogram. I have discussed the care of this patient with the following independent historian: I have independently interpreted the following test below: EKG interpreted as above. I have discussed the management of this patient with the following physician: Past Medical History Past Medical History: CVA/TIA, Fibromyalgia, Hyperlipidemia, Hypertension Additional Past Medical History / Comment(s): rt foot pain, Stroke 2015 or 2016- memory loss History of Any Multi-Drug Resistant Organisms: None Reported Past Surgical History: Hysterectomy, Orthopedic Surgery Additional Past Surgical History / Comment(s): fusion rt foot surgery,carotid , carpel tunnel bilateral, bilaterl hand basal joint, and bilateral foot surgery, partial Hyst Past Anesthesia/Blood Transfusion Reactions: No Reported Reaction Past Psychological History: Anxiety Smoking Status: Former smoker Past Alcohol Use History: None Reported Past Drug Use History: None Reported - Past Family History Sister(s) Family Medical History: Cancer Additional Family Medical History / Comment(s): ovarian Medications and Allergies Home Medications Medication Instructions Recorded Confirmed Type ALPRAZolam [Xanax] 0.25 mg PO QAM 01/25/15 12/20/22 History Atorvastatin [Lipitor] 40 mg PO HS 01/25/15 12/20/22 History Clopidogrel [Plavix] 75 mg PO DAILY 01/25/15 12/20/22 History Citalopram Hydrobromide [CeleXA] 40 mg PO QAM 05/31/17 12/20/22 History Cyclobenzaprine [Flexeril] 10 mg PO TID PRN 05/31/17 12/20/22 History Gabapentin [Neurontin] 300 mg PO TID 05/31/17 12/20/22 History Losartan-Hctz 50-12.5 mg [Hyzaar 1 tab PO DAILY 05/31/17 12/20/22 History 50-12.5] Fluticasone Nasal [place] [Flonase 2 spray EA NOSTRIL DAILY PRN 12/20/22 12/20/22 History Nasal [place]] Mirabegron [Myrbetriq] 50 mg PO DAILY 12/20/22 12/20/22 History Allergies Allergy/AdvReac Type Severity Reaction Status Date / Time tramadol Allergy Itching Verified 12/20/22 14:56 Physical Exam Vitals: Vital Signs Temp Pulse Pulse Resp BP BP Pulse Ox 12/20/22 15:26 97.8 F 64 20 98/64 99 12/20/22 14:00 16 12/20/22 12:24 57 L 17 12/20/22 11:48 63 17 141/82 97 12/20/22 11:06 59 L 17 12/20/22 10:06 63 17 111/69 98 12/20/22 09:12 98.1 F 80 20 106/70 96 Intake and Output 12/20/22 12/20/22 12/20/22 06:59 14:59 22:59 Other: Weight 62.369 kg Results CBC & Chem 7: 12/20/22 10:13 12/20/22 10:13 Labs: Abnormal Lab Results - Last 24 Hours (Table) 12/20/22 12/20/22 12/20/22 Range/Units 10:13 10:13 10:13 WBC 15.6 H (3.8-10.6) k/uL Hct 46.9 H (34.0-46.0) % Neutrophils # 12.0 H (1.3-7.7) k/uL Potassium 3.4 L (3.5-5.1) mmol/L BUN 26 H (7-17) mg/dL Creatinine 1.39 H (0.52-1.04) mg/dL Glucose 110 H (74-99) mg/dL Troponin I (0.000-0.034) ng/mL Urine Appearance Cloudy H (Clear) Urine Protein 2+ H (Negative) Urine Blood Moderate H (Negative) Ur Leukocyte Esterase Small H (Negative) Urine RBC 8 H (0-5) /hpf Urine WBC 6 H (0-5) /hpf Ur Squamous Epith Cells 10 H (0-4) /hpf Urine Mucus Few H (None) /hpf 12/20/22 12/20/22 Range/Units 10:13 14:52 WBC (3.8-10.6) k/uL Hct (34.0-46.0) % Neutrophils # (1.3-7.7) k/uL Potassium (3.5-5.1) mmol/L BUN (7-17) mg/dL Creatinine (0.52-1.04) mg/dL Glucose (74-99) mg/dL Troponin I 0.094 H* 0.073 H* (0.000-0.034) ng/mL Urine Appearance (Clear) Urine Protein (Negative) Urine Blood (Negative) Ur Leukocyte Esterase (Negative) Urine RBC (0-5) /hpf Urine WBC (0-5) /hpf Ur Squamous Epith Cells (0-4) /hpf Urine Mucus (None) /hpf
[2022-12-20] MEDS: METOPROLOL TARTRATE 12.5 MG TAB PO SCH (20:39)
[2022-12-20] MEDS: ALPRAZolam 0.25 MG TAB PO SCH (20:40)
[2022-12-20] MEDS: GABAPENTIN 300 MG CAP PO SCH (20:40)
[2022-12-21] MEDS: NITROGLYCERIN OINT 1 INCH/GM PACKET TOPICAL SCH ×2 (00:04→06:34)
[2022-12-21] MEDS: SODIUM CHLORIDE 0.9% 1,000 ML IV SCH ×5 (01:00→21:04)
[2022-12-21] MEDS: ACETAMINOPHEN TAB 325 MG TAB PO PRN (04:58)
[2022-12-21] MEDS ORDERED: ASPIRIN 325 MG TAB PO ONE (06:00)
[2022-12-21] MEDS: ASPIRIN 81 MG PO SCH (06:35)
[2022-12-21] MEDS: CITALOPRAM HYDROBROMIDE 20 MG TAB PO SCH (06:40)
[2022-12-21] MEDS: ALPRAZolam 0.25 MG TAB PO SCH ×2 (06:40→19:44)
[2022-12-21] MEDS: ATORVASTATIN 80 MG TAB PO SCH (06:40)
[2022-12-21] MEDS: METOPROLOL TARTRATE 12.5 MG TAB PO SCH (06:41)
[2022-12-21] MEDS: GABAPENTIN 300 MG CAP PO SCH ×3 (06:41→21:04)
--- NOTE | 2022-12-21 06:58 | CA ---
Transthoracic Echo Report Name: Essence Dela Cruz Age: 62 Gender: F : 1960 Exam Date: 12/20/2022 14:28 Exam Location: [facility] Ht (in): 63 Wt (lb): 136 Ordering Physician: Mirtha Koo Attending/Referring Phys: [id number], [employer] Ruthie Campos RDCS Procedure CPT: Indications: LVF Cardiac Hx: Technical Quality: Fair Contrast 1: Total Dose (mL): Contrast 2: Total Dose (mL): MEASUREMENTS (Male / Female) Normal Values 2D ECHO LV Diastolic Diameter PLAX 3.8 cm 4.2 - 5.9 / 3.9 - 5.3 cm LV Systolic Diameter PLAX 2.8 cm IVS Diastolic Thickness 1.2 cm 0.6 - 1.0 / 0.6 - 0.9 cm LVPW Diastolic Thickness 1.1 cm 0.6 - 1.0 / 0.6 - 0.9 cm LV Relative Wall Thickness 0.6 RV Internal Dim ED PLAX 2.9 cm M-MODE Aortic Root Diameter MM 2.3 cm LA Systolic Diameter MM 3.8 cm LA Ao Ratio MM 1.7 AV Cusp Separation MM 1.7 cm DOPPLER AV Peak Velocity 140.7 cm/s AV Peak Gradient 7.9 mmHg AV Mean Velocity 108.0 cm/s AV Mean Gradient 5.1 mmHg AV Velocity Time Integral 27.5 cm LVOT Peak Velocity 96.4 cm/s LVOT Peak Gradient 3.7 mmHg LVOT Velocity Time Integral 20.7 cm MV Area PHT 3.3 cm??? Mitral E Point Velocity 43.3 cm/s Mitral A Point Velocity 89.4 cm/s Mitral E to A Ratio 0.5 MV Deceleration Time 230.7 ms MV E' Velocity 5.8 cm/s Mitral E to MV E' Ratio 7.4 TR Peak Velocity 212.3 cm/s TR Peak Gradient 18.0 mmHg Right Ventricular Systolic Press 23.0 mmHg FINDINGS Left Ventricle Mildly increased left ventricular wall thickness. Normal Left ventricular size, systolic function with no obvious regional wall motion abnormalities. Normal Left ventricular diastolic filling pattern. Right Ventricle Normal right ventricular size and function. Right ventricular systolic pressure within normal limits. Right Atrium Normal right atrial size. Left Atrium Normal left atrial size. Mitral Valve Structurally normal mitral valve. No mitral stenosis, or prolapse. Trace mitral regurgitation Aortic Valve Trileaflet aortic valve. No aortic valve stenosis or regurgitation. Tricuspid Valve Mild tricuspid regurgitation.structurally normal tricuspid valve. Pulmonic Valve Pulmonic valve not well visualized. Pericardium No pericardial effusion. Echo free space anterior to the right ventricle likely represents a fat pad. Aorta Normal size aortic root and proximal ascending aorta. CONCLUSIONS 1. Normal left ventricular size and systolic function 2. Mild tricuspid regurgitation with normal right ventricle systolic pressure Previewed by: Dr. Mamta Kennedy MD (Electronically Signed) Final Date: 21 December 2022 06:57
[2022-12-21] MEDS ORDERED: HEPARIN SODIUM,PORCINE (1 ML) 2,500 UNIT in SODIUM CHLORIDE 0.9% 250 ML IRRIGATION PRN (07:00)
[2022-12-21] MEDS ORDERED: HEPARIN SODIUM,PORCINE 10,000 UNIT in SODIUM CHLORIDE 0.9% 1,000 ML IRRIGATION PRN (07:00)
[2022-12-21] MEDS ORDERED: IV FLUID CONTINUATION 1,000 ML IV ONE (07:14)
[2022-12-21] MEDS ORDERED: LIDOCAINE 1% INJ 10MG/ML (20 ML MDV) ONE (07:22)
[2022-12-21] MEDS ORDERED: VERAPAMIL 2.5 MG/ML 2 ML AMP ONE (07:22)
[2022-12-21] MEDS ORDERED: fentaNYL (PF) 50 MCG/ML 2 ML AMP ONE (07:23)
[2022-12-21] MEDS ORDERED: HEPARIN SODIUM 1,000 UN/ML (10ML VL) ONE (07:23)
[2022-12-21] MEDS ORDERED: MIDAZOLAM 2 MG/2 ML VIAL IVP ONE ×2 (07:41→07:49)
[2022-12-21] MEDS ORDERED: LIDOCAINE 1% INJ 10MG/ML (5 ML VIAL-PF) SQ ONE (07:45)
[2022-12-21] MEDS ORDERED: VERAPAMIL SYRINGE (5 MG/10 ML) INTRAARTER ONE (07:47)
[2022-12-21] MEDS ORDERED: HEPARIN SODIUM 1,000 UN/ML (10ML VL) IVP ONE (07:51)
[2022-12-21] MEDS ORDERED: IOPAMIDOL-370 200ML BTL INJ ONE (08:09)
[2022-12-21] MEDS ORDERED: RX INFO: IV CONTRAST WAS GIVEN 1 EACH MISC MISCELLANE PRN (08:24)
--- NOTE | 2022-12-21 08:55 | CC ---
CARDIAC CATHETERIZATION REPORT INDICATION: Acute [id number] elevation MS. PROCEDURE NOTE: After obtaining informed consent, left heart catheterization and coronary angiogram were performed via the right radial artery using standard Griffin catheters. We could only obtain subselective images of the right coronary artery after multiple attempts. The patient received moderate conscious sedation. Total sedation time was 23 minutes. A TR band was used for hemostasis. I obtained right radial artery access using Seldinger technique. A 6-Kitt[place] sheath was placed. Catheters and wires were floated into the ascending aorta. The patient received 5 mg of verapamil and 1500 units of heparin. The patient was on heparin until just before the cath was started and procedure was completed uneventfully. FINDINGS: HEMODYNAMICS: 1. Left ventricular end-diastolic pressure is 6 to 8 mm. There is no significant gradient across the aortic valve. 2. Left ventriculogram: Left ventriculogram was not performed. ANGIOGRAPHIC DATA: 1. Right coronary artery: Right coronary artery is a large dominant vessel and is free of significant stenosis. 2. Left main coronary artery is a normal-sized vessel and is free of stenosis. It divides into left anterior descending coronary artery and circumflex coronary artery. 3. Circumflex coronary artery and its branches are free of significant stenosis. 4. LAD shows a long segment of atherosclerotic plaque in its proximal portion and she probably has had a plaque rupture in this area that cost the patient's symptoms of diaphoresis and mild troponin elevation. CONCLUSIONS: Moderate atherosclerotic block involving proximal LAD. PLAN: We will treat the patient with aggressive medical therapy including aspirin, Plavix, nitrates, statins and KATLIN inhibitors. I am not going to put her on beta blockers because of the bradycardia and I will see how her symptoms evolve. We will watch her here overnight and if she is doing well, I will let her go home tomorrow and if necessary, I will consider an outpatient stress test on her. MMODL / IJN: [id number] /
[2022-12-21 09:18] LABS: Basophils % (A) 0 %; Eosinophils # (A) 0.3 k/uL (0-0.7); Eosinophils % (A) 3 %; HCT 41.7 % (34.0-46.0); HGB 13.5 gm/dL (11.4-16.0); Lymphocytes # (A) 2.3 k/uL (1.0-4.8); Lymphocytes % (A) 22 %; MCH 31.8 pg (25.0-35.0); MCHC 32.4 g/dL (31.0-37.0); MCV 98.3 fL (80.0-100.0); Mean Platelet Volume 7.7; Monocytes # (A) 0.5 k/uL (0-1.0); Monocytes % (A) 5 %; Neutrophils # (A) 6.9 k/uL (1.3-7.7); Neutrophils % (A) 67 %; Platelet Count 231 k/uL (150-450); RBC 4.24 m/uL (3.80-5.40); RDW 13.2 % (11.5-15.5); WBC 10.3 k/uL (3.8-10.6)
[2022-12-21 09:36] LABS: Prothrombin Time 10.9 sec (9.0-12.0)
[2022-12-21 09:51] LABS: African American GFR (CKD) >90 (>60 ml/min/1.73 sqM); Anion Gap 3 mmol/L; Blood Urea Nitrogen 19 mg/dL (7-17); Calcium 8.2 mg/dL (8.4-10.2); Carbon Dioxide 23 mmol/L (22-30); Chloride 111 mmol/L (98-107); Glucose 116 mg/dL (74-99); Non-African American GFR(CKD) >90 (>60 ml/min/1.73 sqM); Potassium 4.3 mmol/L (3.5-5.1); Sodium 137 mmol/L (137-145)
--- NOTE | 2022-12-21 11:57 | P.PN ---
Subjective Progress Note Date: 12/21/22 Patient is a 62-year-old female with PMH of hypertension, dyslipidemia, history of CVA, anxiety presents the ED for constellation of symptoms. Patient reports excessive sweating has been ongoing since Monday. She reports episodes of dry heaving today. She went to work today and felt excessively weak. She denies any headache, lower extremity edema, fever or chills, cough, chest pain, shortness of breath, palpitations, changes in urination or bowel habits. No changes in appetite or weight. She denies any dizziness, numbness/weakness or tingling of extremities. In the ED, her vital signs are stable. CBC showed WBC count of 15.6 with neutrophilia. CMP showed potassium of 3.4, BUN of 26, creat inine 1.39, glucose of 110. Troponin was 0.094, 0.073. UA showed moderate blood, small leukocyte esterase. EKG showed sinus rhythm with ST-T wave changes. Patient is admitted for elevated troponin and cardiology evaluation. 12/21 Patient was seen and examined. She denies any chest pain, SOB, palpitations or diaphoresis. Underwent cardiac cath today which shows plaque in the LAD with probable plaque rupture. CBC is unremarkable. INR is 1. BMP shows Cl 111, BUN 19, glucose 116, Ca 8.2. Echo shows normal LV systolic function with mild TR. Cardiology would like the patient to stay one more night. General: non toxic, no distress, appears at stated age Derm: warm, dry Head: atraumatic, normocephalic, symmetric Eyes: EOMI, no lid lag, anicteric sclera Cardiovascular: S1S2 reg, no murmur Lungs: CTA bilateral, no rhonchi, no rales , no accessory muscle use Ext: no gross muscle atrophy, no edema, no contractures Neuro: no focal neuro deficits Psych: Alert, oriented, appropriate affect Non-ST elevation [place] Resovled: Acute kidney injury, Leukocytosis, Hypokalemia Based on my assessment of this patient, this patient meets a moderate complexity level of care. Patient has an acute diagnosis of non-ST elevation NE that poses a threat to life or bodily function. Non-ST elevation NE: Continue aspirin 81 mg by mouth daily, Plavix 75 mg PO QD and Lipitor 80 mg by mouth daily. Metoprolol discontinued due to bradycardia. Started on Imdur 30 mg PO QD. Telemetry monitoring. Cardiology consulted. Patient names her mother decision maker if she can't make decisions for herself. Patient would like to be full code. I have reviewed the following project management consultant notes: Cath note reviewed. I have reviewed the results of the following tests: CBC, BMP, coag panel, Echo. I have ordered the following tests: BMP ordered for tomorrow morning. I have discussed the care of this patient with the following independent historian: I have independently interpreted the following test below: I have discussed the management of this patient with the following physician: Objective - Vital Signs Vital signs: Vital Signs Temp 97.9 F 12/21/22 03:54 Pulse 54 L 12/21/22 03:54 Resp 16 12/21/22 08:00 BP 142/84 12/21/22 03:54 Pulse Ox 96 12/21/22 09:43 FiO2 Intake & Output 12/20/22 12/21/22 12/21/22 18:59 06:59 18:59 Intake Total 51.265 550 Balance 51.265 550 Weight 62.369 kg Intake: IV 550 Intake, IV Titration 51.265 Amount Heparin Sod,Pork in 0.45% 51.265 NaCl 25,000 unit In 0.45 % NaCl 1 250ml.bag @ 12 UNITS/KG/HR 7.484 mls/hr IV .Q24H JERONIMO Rx#: [id number] Other: Voiding Method Toilet Toilet # Voids 1 - Labs CBC & Chem 7: 12/21/22 09:05 12/21/22 09:05 Labs: Abnormal Lab Results - Last 24 Hours (Table) 12/20/22 12/20/22 12/21/22 Range/Units 14:52 17:34 01:43 APTT 48.2 H (22.0-30.0) sec Chloride (98-107) mmol/L BUN (7-17) mg/dL Glucose (74-99) mg/dL Calcium (8.4-10.2) mg/dL Troponin I 0.073 H* 0.063 H* (0.000-0.034) ng/mL 12/21/22 Range/Units 09:05 APTT (22.0-30.0) sec Chloride 111 H (98-107) mmol/L BUN 19 H (7-17) mg/dL Glucose 116 H (74-99) mg/dL Calcium 8.2 L (8.4-10.2) mg/dL Troponin I (0.000-0.034) ng/mL
[2022-12-21 12:22] LABS: Chol/HDL Ratio 2.63 Ratio; LDL Cholesterol,Calculated 92.9 mg/dL (0.0-131.0); VLDL Calculation 14.38 mg/dL (5.00-40.00)
[2022-12-21] MEDS: Mirabegron [Myrbetriq] 50 MG Tab.Er.24h PO SCH (18:14)
[2022-12-21] MEDS: CLOPIDOGREL 75 MG TAB PO SCH (18:14)
[2022-12-21] MEDS: ISOSORBIDE MONONITRATE ER 30 MG TAB.ER.24H PO SCH (18:14)
[2022-12-21] MEDS ORDERED: polyethylene glycoL 3350 17 GM POWD.PACK PO STA (19:52)
[2022-12-22] MEDS: SODIUM CHLORIDE 0.9% 1,000 ML IV SCH ×3 (03:48→09:06)
[2022-12-22] MEDS: ASPIRIN 81 MG PO SCH (08:01)
[2022-12-22] MEDS: ALPRAZolam 0.25 MG TAB PO SCH (08:01)
[2022-12-22] MEDS: ATORVASTATIN 80 MG TAB PO SCH (08:01)
[2022-12-22] MEDS: CLOPIDOGREL 75 MG TAB PO SCH (08:02)
[2022-12-22] MEDS: GABAPENTIN 300 MG CAP PO SCH (08:02)
[2022-12-22] MEDS: CITALOPRAM HYDROBROMIDE 20 MG TAB PO SCH (08:02)
[2022-12-22] MEDS: ISOSORBIDE MONONITRATE ER 30 MG TAB.ER.24H PO SCH (08:02)
[2022-12-22] MEDS: Mirabegron [Myrbetriq] 50 MG Tab.Er.24h PO SCH (08:04)
[2022-12-22] MEDS: ACETAMINOPHEN TAB 325 MG TAB PO PRN (08:07)
[2022-12-22 08:24] LABS: Potassium 5.1 mmol/L (3.5-5.1)
[2022-12-22 09:25] VITALS: RESP 18
--- NOTE | 2022-12-22 11:02 | P.PN ---
Subjective Progress Note Date: 12/22/22 History of present illness: This is a 62-year-old female patient with no previous cardiac history. She has a past mental history of hypertension, hyperlipidemia, CVA 10 years ago on Plavix, depression, generalized anxiety disorder. Patient presented to the hospital due to sweats. She states that she had sweat running down her face and that she had episode of vomiting and was so tired and weak and fatigued afterward she had to lay on the floor in the bathroom. No abdominal pain. No chest pain. She continues have some generalized fatigue and weakness. She states she also has dyspnea on exertion that's intermittent for the past couple months. She is usually very active. She smokes occasional cigarettes. Patient is been started on heparin drip EKG sinus rhythm with ST-T wave changes Chest x-ray: No acute process WBC 15.6, hemoglobin 15.7, platelet count 319. Sodium 138, potassium 3.4, BUN 26 creatinine 1.39. Glucose 110. Troponin 0.094. Urinalysis moderate blood, contaminated specimen Home cardiac medications: Home medications are confirmed at the time of this dictation 12/22 Yesterday, patient underwent cardiac catheterization that revealed LAD long segment of atherosclerotic plaque in its proximal portion and she probably had a plaque rupture in this area causing the symptoms of diaphoresis and mild troponin elevation. Patient was started on Plavix, Imdur. Beta sabrina was held due to bradycardia. Today, patient denies any episodes of diaphoresis. Blood pressure is 153/89, heart rate is 57-62. Repeat blood work reveals potassium of 5.1. Echocardiogram reveals normal left ventricular size and systolic function, mild tricuspid regurgitation with normal right ventricular systolic pressure. Physical examination: Gen: This is a 62-year-old female. She is resting on ER stretcher and appears to be comfortable in no acute distress VS: reviewed HEENT: Head is atraumatic, normocephalic. Pupils equal, round. Sclerae is anicteric. NECK: Supple. No JVD. LUNGS: Clear to auscultation. No wheezes or rhonchi. No intercostal retractions. HEART: Regular rate and rhythm. No murmur. ABDOMEN: Soft No tenderness. EXTREMITIES: No pedal edema. No calf tenderness. NEUROLOGICAL: Patient is awake, alert and oriented x3. Assessment: Acute non-ST elevated myocardial infarction most likely secondary to plaque rupture History of CVA Hypertension Hyperlipidemia Tobacco use Plan: Continue current cardiac medications Patient is cleared for discharge with follow-up in the office in one to 2 weeks. Nurse practitioner note has been reviewed, I agree with documented findings and plan of care. Patient was seen and examined. Objective - Vital Signs Vital signs: Vital Signs Temp 97.8 F 12/22/22 08:00 Pulse 60 12/22/22 08:00 Resp 18 12/22/22 08:00 BP 153/89 12/22/22 08:00 Pulse Ox 97 12/22/22 09:26 FiO2 Intake & Output 12/21/22 12/22/22 12/22/22 18:59 06:59 18:59 Intake Total 730 298 118 Balance 730 298 118 Weight 64.9 kg Intake: IV 550 Oral 180 298 118 Other: Voiding Method Toilet Toilet Toilet # Voids 1 - Labs CBC & Chem 7: 12/21/22 09:05 12/22/22 06:57 Labs: Abnormal Lab Results - Last 24 Hours (Table) 12/21/22 12/22/22 Range/Units 09:05 06:57 Chloride 108 H (98-107) mmol/L HDL Cholesterol 65.70 H (40.00-60.00) mg/dL
[2022-12-22 11:12] VITALS: BP 152/85; PULSE 57; TEMP 98.4
--- NOTE | 2022-12-22 13:24 | P.DS ---
Providers Date of admission: 12/20/22 12:01 Expected date of discharge: 12/22/22 Attending physician: Fredo Henriquez MD Consults: 12/20/22 12:00 Consult Physician Routine Consulting Provider: Edi Welsh Consult Reason/Comments: NSTEMI, CHRISTINA Do you want consulting provider notified?: Yes Primary care physician: [facility] Course: Patient is a 62-year-old female with PMH of hypertension, dyslipidemia, history of CVA, anxiety presents the ED for constellation of symptoms. Patient reports excessive sweating has been ongoing since Monday. She reports episodes of dry heaving today. She went to work today and felt excessively weak. She denies any headache, lower extremity edema, fever or chills, cough, chest pain, shortness of breath, palpitations, changes in urination or bowel habits. No changes in appetite or weight. She denies any dizziness, numbness/weakness or tingling of extremities. In the ED, her vital signs are stable. CBC showed WBC count of 15.6 with neutrophilia. CMP showed potassium of 3.4, BUN of 26, creatinine 1.39, glucose of 110. Troponin was 0.094, 0.073. UA showed moderate blood, small leukocyte esterase. EKG showed sinus rhythm with ST-T wave changes. Patient is admitted for elevated troponin and cardiology evaluation. 12/21 Patient was seen and examined. She denies any chest pain, SOB, palpitations or diaphoresis. Underwent cardiac cath today which shows plaque in the LAD with probable plaque rupture. CBC is unremarkable. INR is 1. BMP shows Cl 111, BUN 19, glucose 116, Ca 8.2. Echo shows normal LV systolic function with mild TR. Cardiology would like the patient to stay one more night. 12/22 Patient was seen and examined with Mirtha [employer] OFFIC[employer] at bedside. She has no complaints today. Denies chest pain, SOB, palpitations or diaphoresis. Cardiology has cleared the patient for discharge. She'll be given aspirin 81 mg by mouth daily, Lipitor 80 mg by mouth daily, Imdur 30 mg by mouth daily and advised to continue Plavix 75 mg by mouth daily. She is advised follow-up with cardiology within 1 week of discharge. Patient verbalized understanding of the plan. Pertinent studies as above. Pertinent procedures as above. General: non toxic, no distress, appears at stated age Derm: warm, dry Head: atraumatic, normocephalic, symmetric Eyes: EOMI, no lid lag, anicteric sclera Cardiovascular: S1S2 reg, no murmur Lungs: CTA bilateral, no rhonchi, no rales , no accessory muscle use Ext: no gross muscle atrophy, no edema, no contractures Neuro: no focal neuro deficits Psych: Alert, oriented, appropriate affect Discharge diagnosis: Non-ST elevation [place] Resovled: Acute kidney injury, Leukocytosis, Hypokalemia Patient Condition at Discharge: Stable Plan - Discharge Summary Discharge Rx Participant: No New Discharge Prescriptions: New Isosorbide Mononitrate ER [Imdur] 30 mg PO DAILY #30 tab Aspirin 81 mg PO DAILY #30 tab Atorvastatin [Lipitor] 80 mg PO DAILY #30 tab Continue ALPRAZolam [Xanax] 0.25 mg PO QAM Citalopram Hydrobromide [CeleXA] 40 mg PO QAM Gabapentin [Neurontin] 300 mg PO TID Cyclobenzaprine [Flexeril] 10 mg PO TID PRN PRN Reason: Muscle Spasm Fluticasone Nasal [place] [Flonase Nasal [place]] 2 spray EA NOSTRIL DAILY PRN PRN Reason: Pain Clopidogrel [Plavix] 75 mg PO DAILY #30 tab Mirabegron [Myrbetriq] 50 mg PO DAILY Discontinued Atorvastatin [Lipitor] 40 mg PO HS Losartan-Hctz 50-12.5 mg [Hyzaar 50-12.5] 1 tab PO DAILY Discharge Medication List ALPRAZolam [Xanax] 0.25 mg PO QAM 01/25/15 [History] Citalopram Hydrobromide [CeleXA] 40 mg PO QAM 05/31/17 [History] Cyclobenzaprine [Flexeril] 10 mg PO TID PRN 05/31/17 [History] Gabapentin [Neurontin] 300 mg PO TID 05/31/17 [History] Fluticasone Nasal [place] [Flonase Nasal [place]] 2 spray EA NOSTRIL DAILY PRN 12/20/22 [History] Mirabegron [Myrbetriq] 50 mg PO DAILY 12/20/22 [History] Aspirin 81 mg PO DAILY #30 tab 12/22/22 [Rx] Atorvastatin [Lipitor] 80 mg PO DAILY #30 tab 08/03/23 [Rx] Clopidogrel [Plavix] 75 mg PO DAILY #30 tab 12/22/22 [Rx] Isosorbide Mononitrate ER [Imdur] 30 mg PO DAILY #30 tab 12/22/22 [Rx] Follow up Appointment(s)/Referral(s): Allen Watkins DO [Primary Care Provider] - 1-2 days (APPOINTMENT MADE ON December @ 4:20PM ) Edi Welsh MD [STAFF PHYSICIAN] - 1 Week (THE OFFICE WILL CALL YOU WITH AN APPOINTMENT DATE AND TIME) Patient Instructions/Handouts: Moderate Sedation (DC), After Radial Heart Catheterization (GEN) Activity/Diet/Wound Care/Special Instructions: *NO LIFTING, PUSHING, OR PULLING ANYTHING OVER 5 POUNDS FOR 5 DAYS *NO DRIVING FOR 3 DAYS *YOU CAN REMOVE YOUR DRESSING TOMORROW AND YOU CAN SHOWER AT THAT TIME BUT DO NOT SUBMERSE YOUR PUNCTURE SITE IN WATER FOR A FEW DAYS TO PREVENT INFECTION - SO NO TUB BATHS, POOLS, HOT TUBS, DISHES...ETC *ANY SIGNS OF BLEEDING (HARDNESS, SWELLING, OR EXCESSIVE BRUISING) HOLD DIRECT PRESSURE ON YOUR PUNCTURE SITE AND COME TO THE NEAREST EMERGENCY ROOM TO GET YOUR PUNCTURE SITE LOOKED AT - DO NOT DRIVE YOURSELF! EITHER CALL EMS OR HAVE SOMEONE DRIVE YOU! Discharge Disposition: HOME SELF-CARE
== END 2022-12-22 12:55 | disposition home or self-care (01) | DRG 190 ==
LOC: EC 09:09 → 3SCARD 12:01
PROVIDERS: ADMIT Family Medicine; ATTEND Family Medicine
PROC: 4A023N7 Measurement of Cardiac Sampling and Pressure, Left Heart, Percutaneous Approach (ICD-10-PCS; principal; 2022-12-21 07:30)
PROC: B2111ZZ Fluoroscopy of Multiple Coronary Arteries using Low Osmolar Contrast (ICD-10-PCS; principal; 2022-12-21 07:30)
DX: I21.4 Non-ST elevation (NSTEMI) myocardial infarction (principal); E87.6 Hypokalemia; E78.5 Hyperlipidemia, unspecified; F41.9 Anxiety disorder, unspecified; I10 Essential (primary) hypertension; I25.10 Atherosclerotic heart disease of native coronary artery without angina pectoris; D72.829 Elevated white blood cell count, unspecified; M79.7 Fibromyalgia; N17.9 Acute kidney failure, unspecified; Z79.02 Long term (current) use of antithrombotics/antiplatelets; R23.2 Flushing; Z79.82 Long term (current) use of aspirin; Z79.899 Other long term (current) drug therapy; Z86.73 Personal history of transient ischemic attack (TIA), and cerebral infarction without residual deficits; Z98.1 Arthrodesis status; Z87.891 Personal history of nicotine dependence
CPT/HCPCS: 36415; 71046; 80048; 80051; 80053; 80061; 81001; 83735; 84484; 85025; 85610; 85730; 93005; 93306; 93458; 94760

== ENCOUNTER 2023-01-01 19:09 | Emergency (ER) | payer OTHER ==
[2023-01-01 19:27] VITALS: RESP 18
[2023-01-01] MEDS ORDERED: SODIUM CHLORIDE 0.9% 500 ML 500 ML IV STA (22:03)
--- NOTE | 2023-01-01 22:16 | ED ---
Syncope HPI - General Chief Complaint: Fall Stated Complaint: Fall Time Seen by Provider: 01/01/23 21:10 Source: patient Mode of arrival: ambulatory Limitations: no limitations - History of Present Illness Initial Comments: This patient is a 62-year-old woman who presents to have evaluation after she had been passing out episode. Patient states that she had been lying on the sun around 4:30. After about 20 minutes she got up to go back into her home. She states that she saw something on the ground then when she bent over to pick it up she felt funny and then fell over and believes she briefly passed out. She states that when she got up she felt unsteady and was wobbly when she went to go lying in her bed briefly. Patient called the emergency department and did not receive any advice, she therefore called the commercial sheet metal foreman office and Dr. Rodriguez recommended that she be seen in the emergency department. Patient denies having any chest pain, dyspnea, diaphoresis, nausea vomiting. I related to the fall she states that she does have a small abrasion on the right lower leg. MD Complaint: loss of consciousness Onset/Timin -: hour(s) Prodromal Symptoms: lightheaded -: second(s) Injuries Sustained Associated with Event: RLE Current Symptoms: back to baseline Context: standing up Treatments Prior to Arrival: none - Related Data Home Medications Medication Instructions Recorded Confirmed ALPRAZolam [Xanax] 0.25 mg PO QAM 01/25/15 12/29/22 Citalopram Hydrobromide [CeleXA] 40 mg PO QAM 05/31/17 12/29/22 Cyclobenzaprine [Flexeril] 10 mg PO DAILY 05/31/17 12/29/22 Gabapentin [Neurontin] 300 mg PO QAM 05/31/17 12/29/22 Fluticasone Nasal [place] [Flonase 1 spray EA NOSTRIL DAILY 12/20/22 12/29/22 Nasal [place]] Mirabegron [Myrbetriq] 50 mg PO DAILY 12/20/22 12/29/22 Gabapentin 600 mg PO HS 12/29/22 12/29/22 Isosorbide Mononitrate ER [Imdur] 30 mg PO QAM 12/29/22 12/29/22 Losartan-Hctz 50-12.5 mg [Hyzaar 1 tab PO QAM 12/29/22 12/29/22 50-12.5] Previous Rx's Medication Instructions Recorded Aspirin 81 mg PO DAILY #30 tab 12/22/22 Atorvastatin [Lipitor] 80 mg PO DAILY #30 tab 12/22/22 Clopidogrel [Plavix] 75 mg PO DAILY #30 tab 12/22/22 oxyCODONE-APAP 5-325MG [Percocet 1 tab PO Q4HR PRN #30 tab 01/06/23 5-325 mg] Allergies Allergy/AdvReac Type Severity Reaction Status Date / Time hydrocodone Allergy Unknown Verified 01/01/23 19:27 lisinopril Allergy Unknown Verified 01/01/23 19:27 tramadol Allergy Itching Verified 01/01/23 19:27 Review of Systems ROS Statement: Those systems with pertinent positive or pertinent negative responses have been documented in the HPI. ROS Other: All systems not noted in ROS Statement are negative. Constitutional: Denies: fever, weakness Eyes: Denies: vision change Respiratory: Denies: cough, dyspnea Cardiovascular: Reports: syncope. Denies: chest pain, palpitations, orthopnea, edema Gastrointestinal: Denies: abdominal pain, nausea, vomiting Genitourinary: Denies: dysuria, frequency Musculoskeletal: Denies: back pain Skin: Denies: rash Neurological: Denies: headache, weakness, numbness Past Medical History Past Medical History: CVA/TIA, Fibromyalgia, Hyperlipidemia, Hypertension Additional Past Medical History / Comment(s): rt foot pain, Stroke 2015 or 2016- memory loss History of Any Multi-Drug Resistant Organisms: None Reported Past Surgical History: Hysterectomy, Orthopedic Surgery Additional Past Surgical History / Comment(s): fusion rt foot surgery,carotid , carpel tunnel bilateral, bilaterl hand basal joint, and bilateral foot surgery, partial Hyst Past Anesthesia/Blood Transfusion Reactions: No Reported Reaction Past Psychological History: Anxiety Smoking Status: Current every day smoker Past Alcohol Use History: None Reported Past Drug Use History: Marijuana - Past Family History Sister(s) Family Medical History: Cancer Additional Family Medical History / Comment(s): Ovarian cancer. Father Family Medical History: Cancer General Exam Limitations: no limitations General appearance: alert, in no apparent distress Head exam: Present: atraumatic, normocephalic Eye exam: Present: normal appearance. Absent: scleral icterus, conjunctival injection ENT exam: Present: mucous membranes dry Neck exam: Present: normal inspection Respiratory exam: Present: normal lung sounds bilaterally. Absent: respiratory distress, wheezes, rales, rhonchi, stridor, accessory muscle use Cardiovascular Exam: Present: regular rate, normal rhythm, normal heart sounds. Absent: systolic murmur, diastolic murmur, rubs, gallop GI/Abdominal exam: Present: soft. Absent: distended, tenderness, guarding, rebound, rigid, mass Extremities exam: Present: normal inspection, normal capillary refill. Absent: pedal edema, calf tenderness Back exam: Present: normal inspection. Absent: CVA tenderness (R), CVA tenderness (L) Neurological exam: Present: alert, oriented X3 Skin exam: Present: warm, dry, intact, normal color. Absent: rash Course Vital Signs 01/01/23 01/01/23 01/02/23 19:23 23:29 02:21 Temperature 98.4 F 98.1 F Pulse Rate 90 88 74 Respiratory 18 18 18 Rate Blood Pressure 93/56 113/73 113/76 O2 Sat by Pulse 97 98 98 Oximetry EKG Findings - EKG Results: EKG: interpreted by ERMYann, sinus rhythm, normal axis, normal QRS EKG shows: bradycardia (Rate 48 bpm) - Blocks, [place], Hypertrophy, ST Abn: Repolarization changes or abnormalities: nonspecific abnormality, ST segment, and/or T wave Medical Decision Making - Medical Decision Making This patient is 62-year-old woman presenting to have evaluation after syncopal episode. The patient was feeling well after observation in the emergency department. The workup largely unremarkable. We discussed admission for telemetry monitoring overnight versus following up with the commercial sheet metal foreman and at this point she feels well and would like to follow-up. Discussed that there is small risk of missing cardiac etiology, she will follow with the commercial sheet metal foreman promptly, and we discussed return parameters. The patient had chest x-ray which I interpreted as being negative for acute infiltrate, pneumothorax, congestive heart failure Was pt. sent in by a medical professional or institution (, PA, COMMUNICATIONS MANAGER, urgent care, hospital, or [place] health care facility...) When possible be specific @ -The patient was advised by the commercial sheet metal foreman office to be seen in emergency department Did you speak to anyone other than the patient for history (EMS, parent, family, police, friend...)? What history was obtained from this source @ -[No] Did you review nursing and triage notes (agree or disagree)? Why? @ -[I reviewed and agree with nursing and triage notes] Were old charts reviewed (outside hosp., previous admission, EMS record, old EKG, old radiological studies, urgent care reports/EKG's, [place] health care facility records)? Report findings @ -[No old charts were reviewed] Differential Diagnosis (chest pain, altered mental status, abdominal pain women, abdominal pain men, vaginal bleeding, weakness, fever, dyspnea, syncope, headache, dizziness, GI bleed, back pain, seizure, CVA, palpatations, mental health, musculoskeletal)? @ -[Differential Syncope: Valvular disease, hypertrophic cardiomyopathy, pulmonary embolism, tamponade, tachycardia, bradycardia, SD, hypovolemia, hemorrhage, dissection, anemia, intracranial hemorrhage, seizure, hypoglycemia, carbon monoxide poisoning, this is not meant to be an all-inclusive list. EKG interpreted by me (3pts min.). @ -[As above] X-rays interpreted by me (1pt min.). @ -[I interpreted as above CT interpreted by me (1pt min.). @ -[None done] U/S interpreted by me (1pt. min.). @ -[None done] What testing was considered but not performed or refused? (CT, X-rays, U/S, labs)? Why? @ -[None] What meds were considered but not given or refused? Why? @ -[None] Did you discuss the management of the patient with other professionals (emmy bloom i.e. , PA, COMMUNICATIONS MANAGER, lab, RT, psych nurse, social media job titles, student loan counselor, teacher, corporate ethics officer, pillowcase folder)? Give summary @ -[No] Was smoking cessation discussed for >3mins.? @ -[No] Was critical care preformed (if so, how long)? @ -[No] Were there social determinants of health that impacted care today? How? (Homelessness, low income, unemployed, alcoholism, drug addiction, tr ansportation, low edu. Level, literacy, decrease access to med. care, long-term, rehab)? @ -[No] Was there de-escalation of care discussed even if they declined (Discuss DNR or withdrawal of care, Hospice)? DNR status @ -[No] What co-morbidities impacted this encounter? (DM, HTN, Smoking, COPD, CAD, Cancer, CVA, ARF, Chemo, Hep., AIDS, mental health diagnosis, sleep apnea, morbid obesity)? @ -[None] Was patient admitted / discharged? Hospital course, mention meds given and route, prescriptions, significant lab abnormalities, going to OR and other pertinent info. @ -[Patient discharged, as above with close cardiology follow-up Undiagnosed new problem with uncertain prognosis? @ -[No] Drug Therapy requiring intensive monitoring for toxicity (Heparin, Nitro, Insulin, Cardizem)? @ -[No] Were any procedures done? @ -[No] Diagnosis/symptom? @ -[Acute syncopal episode Acute, or Chronic, or Acute on Chronic? @ -[Acute Uncomplicated (without systemic symptoms) or Complicated (systemic symptoms)? @ -[Uncomplicated Side effects of treatment? @ -[No] Exacerbation, Progression, or Severe Exacerbation? @ -[No] Poses a threat to life or bodily function? How? (Chest pain, USA, SD, pneumonia, PE, COPD, DKA, ARF, appy, cholecystitis, CVA, Diverticulitis, Homicidal, Suicidal, threat to staff... and all critical care pts) @ -[There is small likelihood of missed arrhythmia that was discussed - Lab Data Result diagrams: 01/01/23 22:13 01/01/23 22:13 Lab Results 01/01/23 01/01/23 01/01/23 Range/Units 22:13 22:13 22:13 WBC 9.2 (3.8-10.6) k/uL RBC 4.30 (3.80-5.40) m/uL Hgb 13.8 (11.4-16.0) gm/dL Hct 40.5 (34.0-46.0) % MCV 94.3 (80.0-100.0) fL MCH 32.2 (25.0-35.0) pg MCHC 34.1 (31.0-37.0) g/dL RDW 12.5 (11.5-15.5) % Plt Count 256 (150-450) k/uL MPV 8.4 Neutrophils % 67 % Lymphocytes % 22 % Monocytes % 6 % Eosinophils % 2 % Basophils % 1 % Neutrophils # 6.1 (1.3-7.7) k/uL Lymphocytes # 2.0 (1.0-4.8) k/uL Monocytes # 0.5 (0-1.0) k/uL Eosinophils # 0.2 (0-0.7) k/uL Basophils # 0.1 (0-0.2) k/uL PT 10.0 (9.0-12.0) sec INR 0.9 (<1.2) APTT 21.8 L (22.0-30.0) sec D-Dimer 0.74 H (<0.60) mg/L FEU Sodium 140 (137-145) mmol/L Potassium 4.3 (3.5-5.1) mmol/L Chloride 106 (98-107) mmol/L Carbon Dioxide 29 (22-30) mmol/L Anion Gap 5 mmol/L BUN 20 H (7-17) mg/dL Creatinine 0.98 (0.52-1.04) mg/dL Est GFR (CKD-EPI)AfAm 73 (>60 ml/min/1.73 sqM) Est GFR (CKD-EPI)NonAf 63 (>60 ml/min/1.73 sqM) Glucose 83 (74-99) mg/dL Calcium 9.8 (8.4-10.2) mg/dL Total Bilirubin 0.4 (0.2-1.3) mg/dL AST 22 (14-36) U/L ALT 19 (4-34) U/L Alkaline Phosphatase 60 (38-126) U/L Troponin I (0.000-0.034) ng/mL Total Protein 6.8 (6.3-8.2) g/dL Albumin 4.1 (3.5-5.0) g/dL Serum Alcohol <10 mg/dL 01/01/23 Range/Units 22:13 WBC (3.8-10.6) k/uL RBC (3.80-5.40) m/uL Hgb (11.4-16.0) gm/dL Hct (34.0-46.0) % MCV (80.0-100.0) fL MCH (25.0-35.0) pg MCHC (31.0-37.0) g/dL RDW (11.5-15.5) % Plt Count (150-450) k/uL MPV Neutrophils % % Lymphocytes % % Monocytes % % Eosinophils % % Basophils % % Neutrophils # (1.3-7.7) k/uL Lymphocytes # (1.0-4.8) k/uL Monocytes # (0-1.0) k/uL Eosinophils # (0-0.7) k/uL Basophils # (0-0.2) k/uL PT (9.0-12.0) sec INR (<1.2) APTT (22.0-30.0) sec D-Dimer (<0.60) mg/L FEU Sodium (137-145) mmol/L Potassium (3.5-5.1) mmol/L Chloride (98-107) mmol/L Carbon Dioxide (22-30) mmol/L Anion Gap mmol/L BUN (7-17) mg/dL Creatinine (0.52-1.04) mg/dL Est GFR (CKD-EPI)AfAm (>60 ml/min/1.73 sqM) Est GFR (CKD-EPI)NonAf (>60 ml/min/1.73 sqM) Glucose (74-99) mg/dL Calcium (8.4-10.2) mg/dL Total Bilirubin (0.2-1.3) mg/dL AST (14-36) U/L ALT (4-34) U/L Alkaline Phosphatase (38-126) U/L Troponin I 0.013 (0.000-0.034) ng/mL Total Protein (6.3-8.2) g/dL Albumin (3.5-5.0) g/dL Serum Alcohol mg/dL Disposition Clinical Impression: Syncope Disposition: HOME SELF-CARE Condition: Good Instructions (If sedation given, give patient instructions): Syncope (DC) Is patient prescribed a controlled substance at d/c from ED?: No Referrals: Allen Watkins DO [Primary Care Provider] - 1-2 days
[2023-01-01 22:42] LABS: Basophils # (A) 0.1 k/uL (0-0.2); Basophils % (A) 1 %; Eosinophils # (A) 0.2 k/uL (0-0.7); Eosinophils % (A) 2 %; HCT 40.5 % (34.0-46.0); HGB 13.8 gm/dL (11.4-16.0); Lymphocytes % (A) 22 %; MCH 32.2 pg (25.0-35.0); MCHC 34.1 g/dL (31.0-37.0); MCV 94.3 fL (80.0-100.0); Mean Platelet Volume 8.4; Monocytes # (A) 0.5 k/uL (0-1.0); Monocytes % (A) 6 %; Neutrophils # (A) 6.1 k/uL (1.3-7.7); Neutrophils % (A) 67 %; Platelet Count 256 k/uL (150-450); RDW 12.5 % (11.5-15.5); WBC 9.2 k/uL (3.8-10.6)
[2023-01-01 22:58] LABS: INR 0.9 (<1.2); Partial Thromboplastin Time 21.8 sec (22.0-30.0)
[2023-01-01 22:59] LABS: ALT 19 U/L (4-34); AST 22 U/L (14-36); African American GFR (CKD) 73 (>60 ml/min/1.73 sqM); Albumin 4.1 g/dL (3.5-5.0); Alcohol <10 mg/dL; Alkaline Phosphatase 60 U/L (38-126); Anion Gap 5 mmol/L; Blood Urea Nitrogen 20 mg/dL (7-17); Calcium 9.8 mg/dL (8.4-10.2); Carbon Dioxide 29 mmol/L (22-30); Chloride 106 mmol/L (98-107); Glucose 83 mg/dL (74-99); Non-African American GFR(CKD) 63 (>60 ml/min/1.73 sqM); Potassium 4.3 mmol/L (3.5-5.1); Sodium 140 mmol/L (137-145); Total Bilirubin 0.4 mg/dL (0.2-1.3); Total Protein 6.8 g/dL (6.3-8.2)
--- NOTE | 2023-01-02 00:33 | XR ---
EXAM: XR Chest, 2 Views CLINICAL HISTORY: ITS.REASON XR Reason: syncope TECHNIQUE: Frontal and lateral views of the chest. COMPARISON: No relevant prior studies available. FINDINGS: Lungs: Unremarkable. No consolidation. Pleural space: Unremarkable. No pneumothorax. Heart: Unremarkable. No cardiomegaly. Mediastinum: Unremarkable. Bones/joints: Unremarkable. IMPRESSION: Normal chest x-rays.
--- NOTE | 2023-01-02 01:30 | CT ---
EXAM: CT Angiography Chest With Intravenous Contrast CLINICAL HISTORY: ITS.REASON CT Reason: syncope, possible PE TECHNIQUE: Axial computed tomographic angiography images of the chest with intravenous contrast. CTDI is 17.87 mGy and DLP is 228 mGy-cm. This CT exam was performed using one or more of the following dose reduction techniques: automated exposure control, adjustment of the mA and/or kV according to patient size, and/or use of iterative reconstruction technique. MIP reconstructed images were created and reviewed. COMPARISON: No relevant prior studies available. FINDINGS: Pulmonary arteries: Exam limited secondary to the phase of contrast administration. No large central pulmonary embolus present on this exam. Aorta: No acute findings. No thoracic aortic aneurysm. Lungs: Unremarkable. No mass. No consolidation. Pleural space: Unremarkable. No significant effusion. No pneumothorax. Heart: Unremarkable. No cardiomegaly. No significant pericardial effusion. No evidence of RV dysfunction. Bones/joints: No acute fracture. No dislocation. Soft tissues: Unremarkable. Lymph nodes: Unremarkable. No enlarged lymph nodes. IMPRESSION: No acute findings in the visualized arteries of the chest.
[2023-01-02 02:22] VITALS: BP 113/76; PULSE 74; TEMP 98.1
== END 2023-01-02 02:21 | disposition home or self-care (01) ==
LOC: EC 19:09
DX: R55 Syncope and collapse (principal); I10 Essential (primary) hypertension; F41.9 Anxiety disorder, unspecified; F17.200 Nicotine dependence, unspecified, uncomplicated; F12.90 Cannabis use, unspecified, uncomplicated; Z86.73 Personal history of transient ischemic attack (TIA), and cerebral infarction without residual deficits; Z79.899 Other long term (current) drug therapy; Z88.5 Allergy status to narcotic agent; Z88.8 Allergy status to other drugs, medicaments and biological substances
CPT/HCPCS: 36415; 93005; 85379; 80053; 84484; 85025; 85610; 85730; 71046; 71275; 99284; 96360; G0480; Q9967; 80320

== ENCOUNTER → 2023-01-06 | Day surgery (SDC) | payer OTHER ==
[2022-12-29 14:28] VITALS: BMI 23.1
[~2023-01-06] MED LIST changes: +BUPIVACAINE (PF) 0.25% 10 ML VIAL SQ ONE; +HYDROmorphone (PF) 1 MG/ML ONE; +LIDOCAINE 2% INJ 20 MG/ML (2 ML VIAL) ONE; -MIDAZOLAM 2 MG/2 ML VIAL IV PRN; +MIDAZOLAM 2 MG/2 ML VIAL ONE; +ONDANSETRON 4 MG/2 ML VIAL IVP ONE; +PHENYLEPHRINE-0.9% NACL SYG 1,000 MCG/10 ML SYRINGE ONE; +PROPOFOL 10 MG/ML 20 ML VIAL IV ONE; +ceFAZolin 1,000 MG in SODIUM CHLORIDE 0.9% 1,000 ML IRRIGATION ONE; +diphenhydrAMINE 50 MG/ML 1 ML VIAL IVP ONE; +diphenhydrAMINE 50 MG/ML 1 ML VIAL ONE; +droPERidol 5 MG/2 ML VIAL IVP ONE; +fentaNYL (PF) 50 MCG/ML 2 ML AMP IV PRN; +fentaNYL (PF) 50 MCG/ML 2 ML AMP ONE
--- NOTE | 2023-01-06 13:29 | P.OP ---
Date of Procedure: 01/06/23 Preoperative Diagnosis: 1. Hallux valgus left foot 2. Hammertoe fifth digit right foot Postoperative Diagnosis: 1. Same 2. Same Procedure(s) Performed: 1. Bunionectomy by double osteotomy left foot 2. Hammertoe correction fifth toe right foot Implants: Arthrex minimally invasive bunion screws Anesthesia: ROSARIO Surgeon: Fernando Price Estimated Blood Loss (ml): 2 Pathology: none sent Condition: stable Disposition: PACU Description of Procedure: The patient was brought into the operative room and placed on table supine position. Timeout was taken to confirm correct patient identifiers, correct laterally surgery, and correct procedures. Once all staff in the room were in agreement timeout, the patient was induced and placed under general anesthesia. A well-padded tourniquet was placed left thigh. 20 mL 0.25% Marcaine was injected as a left ankle block and 10 mL of 0.25% Marcaine was injected as a right lateral foot block. Both feet were then prepped and draped usual manner. Attention directed to the right foot where an Esmarch bandage was used to exsanguinate the foot. The bandage was left in place in the midfoot provide hemostasis. Attention was directed over the proximal interphalangeal joint of the fifth digit, where 2 semi-elliptical converging incisions are made from a distal medial to proximal lateral direction. The interposing piece of skin was carefully dissected from the underlying subcutaneous tissue and removed. Transverse incision was made to the capsule and ligamentous structures of the proximal interphalangeal joint. A sagittal saw was used to resect the head of the proximal phalanx. Deep within the surgical site was placed flexor tenotomy was also performed. The wound is irrigated thoroughly with antibiotic saline. Skin was repaired with 3-0 nylon. Nonadherent gauze and a dry sterile dressing applied to the left foot. The tourniquet was released capillary refill return to all digits on the right foot. Attention then directed to the left foot which was exsanguinated with an Esmarch bandage and the thigh tourniquet inflated to 250 mmHg. Under fluoroscopic visualization bisection lines are placed along the first metatarsal centrally and the shaft from proximal to distal. Alignment was also drawn over the location of the first tarsometatarsal joint as well as the first metatarsal phalangeal joint. A guidewire for the initial fixation screw was then placed at the proximal medial base of the first metatarsal and the wire was advanced distally and laterally until it penetrated the lateral cortex and it was backed off and placed within the canal again. Lateral view also showed it was centrally located. Then under fluoroscopic visualization a small bur was then placed through this small stab incision medial side of the first metatarsal shaft. It was approximately 20 mm proximal to the edges phalangeal joint. The bur was advanced straight medial to lateral to the central aspect of the first metatarsal. Once the lateral cortex was breached the bur was rotated first dorsally until the ostium was completed and then plantarly to complete the osteotomy. This is all done under live fluoroscopy. Once the ostium was completed with distal traction was placed to see if there is gapping of the osteotomy indicating that all the bone had been resected. Once that was done a large hemostat was in place and the medullary canal metatarsal and then used as a lever to laterally shift the metatarsal heads and the correction. That was left in place for 2-3 minutes to help the soft tissue relax. And then the great toe was placed into slight varus and rotated to correct the frontal plane deformity of the first metatarsal head and then with tension placed on the hemostat to correct the intermetatarsal angle, the initial guidewire was advanced into the metatarsal head. Fluoroscopy confirmed the proper position the wire in AP and lateral views. The parallel guide was placed over the initial guidewire and then a second wire was placed for the second screw through the appropriate hole. Again this wire was advanced into the metatarsal head and then checked under fluoroscopy in AP and lateral views to make sure that was still parallel which was. The more proximal wire was advanced distally to exit out the plantar skin that was held in place with a hemostat to prevent it from backing out. Small stab incisions made around the wire which was measured for appropriate screw length. And then the drill was inserted and then drilled until just across the osteotomy site. The taper screw was then laced over the wire and advanced until it engaged the head in the taper was in the correct direction and flush with the medial cortex of the first metatarsal. She confirm the position screw on AP and lateral views. The same procedure was done with a more distal screw utilizing the smaller diameter screw appropriate for it. Final positioning show that was within plane both on AP and lateral views. Final fluoroscopic imaging showed good bony contact at the osteotomy with appropriate shaft of the metatarsal head and proper placement of the hardware. Then attention directed to the proximal phalanx of the great toe, where a small stab incision was made at the medial aspect of the base of the proximal phalanx. A bur was then inserted and advanced obliquely in a proximal medial to distal lateral direction. This is all done under live fluoroscopy so the bur did not penetrate the lateral cortex. And then it was rotated dorsally and plantarly to complete the osteotomy. And then the ostium was manipulated so that it wouldn't close and reduce. A guidewire for a headless screw was then placed at the distal medial aspect of the proximal phalangeal head of the guidewire was inserted so that across the osteotomy was nearly perpendicular to it. Overdrill was completed then the screw inserted over the wire and advanced until the proximal threads engaged and compressed the osteotomy. Final fluoroscopic imaging showed correction of all deformities with proper placement of the hardware. Next the soft tissue on the medial edge of the first metatarsal that was created by the shifting the capital fragment was freed and a large bur was placed and used to reduce that ledge under direct fluoroscopic visualization. Once was done of the areas were all thoroughly irrigated with antibiotic saline. The proximal incisions were closed with 3-0 nylon in the distal incisions closed with dermal glue. Nonadherent gauze and a dry sterile dressing applied to left foot. The tourniquet was released and capillary refill return to all digits on the left foot. The patient tolerated above procedure and anesthesia well. She went to recovery vital signs stable.
[2023-01-06 13:31] VITALS: TEMP 97.4
[2023-01-06 13:33] VITALS: RESP 16
[2023-01-06 15:20] VITALS: BP 153/78; PULSE 71
== END | disposition home or self-care (01) ==
LOC: OR 09:35
PROVIDERS: ATTEND Podiatrist
DX: M20.12 Hallux valgus (acquired), left foot (principal); M20.41 Other hammer toe(s) (acquired), right foot; I10 Essential (primary) hypertension; E78.5 Hyperlipidemia, unspecified; Z79.899 Other long term (current) drug therapy; Z88.5 Allergy status to narcotic agent; Z82.49 Family history of ischemic heart disease and other diseases of the circulatory system; Z87.891 Personal history of nicotine dependence; Z86.73 Personal history of transient ischemic attack (TIA), and cerebral infarction without residual deficits; Z98.890 Other specified postprocedural states
CPT/HCPCS: 28285; 28299; J1200; J1100; J0690 ×2; J2405; J0665

== ENCOUNTER → 2023-06-23 | Outpatient (CLI) | payer OTHER ==
--- NOTE | 2023-06-23 11:46 | XR ---
EXAMINATION TYPE: XR abdomen 2V DATE OF EXAM: 06/23/2023 11:32 AM CLINICAL INDICATION:Female, 62 years old with history of [id number] GEN ABD PAIN; [facility] COMPARISON: 05/31/2012 TECHNIQUE: Two views of the abdomen were obtained. FINDINGS: The bowel gas pattern is nonspecific without dilated loops of small or large bowel. There i s no evidence for organomegaly or pneumoperitoneum. The osseous structures are intact. No abnormal calcifications are present. Fecal material and gas are demonstrated throughout the colon and rectum. Multilevel degeneration changes throughout the spine with some scoliosis. IMPRESSION: 1. Nonspecific bowel gas pattern without radiographic evidence for acute process. 2. Moderate multilevel degeneration changes of the spine.
== END | disposition home or self-care (01) ==
LOC: RADXRYALE 11:07
PROVIDERS: ATTEND Family Medicine
DX: R10.84 Generalized abdominal pain (principal); M47.819 Spondylosis without myelopathy or radiculopathy, site unspecified
CPT/HCPCS: 74019

== ENCOUNTER 2023-07-03 11:28 | Emergency (ER) | payer OTHER ==
--- NOTE | 2023-07-03 12:01 | ED ---
Chest Pain HPI - General Chief Complaint: Chest Pain Stated Complaint: chest/back pain Time Seen by Provider: 07/03/23 11:53 Source: patient, RN notes reviewed, old records reviewed Mode of arrival: ambulatory Limitations: no limitations - History of Present Illness Initial Comments: This is a 62-year-old female to the ER today. This patient presents today for evaluation regards to severe weakness and not feeling well. Patient also complaining of chest pain. Patient is history of high blood pressure and high cholesterol patient's pain is upper abdomen and chest no nausea no vomiting no fevers no travels no sick contacts no other complaints MD Complaint: chest pain -: hour(s) Onset: during rest, during exertion Pain Location: substernal, epigastric Pain Radiation: abdomen Severity: severe Severity scale (1-10): 8 Quality: tightness, sharp Consistency: intermittent Improves With: nothing Worsens With: nothing Anginal Symptoms: sense of impending doom Other Symptoms: palpitations Treatments Prior to Arrival: none - Related Data Home Medications Medication Instructions Recorded Confirmed ALPRAZolam [Xanax] 0.25 mg PO DAILY 01/25/15 07/03/23 Citalopram Hydrobromide [CeleXA] 40 mg PO DAILY 05/31/17 07/03/23 Cyclobenzaprine [Flexeril] 10 mg PO DAILY 05/31/17 07/03/23 Gabapentin [Neurontin] 300 mg PO DAILY 05/31/17 07/03/23 Fluticasone Nasal Crawford [Flonase 1 spr EA NOSTRIL DAILY 12/20/22 07/03/23 Nasal Crawford] Mirabegron [Myrbetriq] 50 mg PO DAILY 12/20/22 07/03/23 Gabapentin 600 mg PO HS 12/29/22 07/03/23 Isosorbide Mononitrate ER [Imdur] 30 mg PO DAILY 12/29/22 07/03/23 Losartan-Hctz 50-12.5 mg [Hyzaar 1 tab PO DAILY 12/29/22 07/03/23 50-12.5] Previous Rx's Medication Instructions Recorded Aspirin 81 mg PO DAILY #30 tab 12/22/22 Atorvastatin [Lipitor] 80 mg PO DAILY #30 tab 12/22/22 Clopidogrel [Plavix] 75 mg PO DAILY #30 tab 12/22/22 Allergies Allergy/AdvReac Type Severity Reaction Status Date / Time hydrocodone Allergy Unknown Verified 07/03/23 13:20 lisinopril Allergy Unknown Verified 07/03/23 13:20 tramadol Allergy Itching Verified 07/03/23 13:20 Review of Systems ROS Statement: Those systems with pertinent positive or pertinent negative responses have been documented in the HPI. ROS Other: All systems not noted in ROS Statement are negative. EKG Findings - EKG Comments: EKG Findings:: EKG is sinus 65 GA 165 QRS 86 QTc 333 - EKG Results: EKG: interpreted by ERMD Past Medical History Past Medical History: CVA/TIA, Fibromyalgia, Hyperlipidemia, Hypertension Additional Past Medical History / Comment(s): rt foot pain, Stroke 2015 or 2016- memory loss History of Any Multi-Drug Resistant Organisms: None Reported Past Surgical History: Hysterectomy, Orthopedic Surgery Additional Past Surgical History / Comment(s): fusion rt foot surgery,carotid , carpel tunnel bilateral, bilaterl hand basal joint, and bilateral foot surgery, partial Hyst Past Anesthesia/Blood Transfusion Reactions: No Reported Reaction Past Psychological History: Anxiety Smoking Status: Current every day smoker Past Alcohol Use History: Occasional Past Drug Use History: Marijuana - Past Family History Sister(s) Family Medical History: Cancer Additional Family Medical History / Comment(s): Ovarian cancer. Father Family Medical History: Cancer General Exam Limitations: no limitations General appearance: alert, in no apparent distress, anxious Head exam: Present: atraumatic, normocephalic, normal inspection Eye exam: Present: normal appearance, PERRL, EOMI. Absent: scleral icterus, conjunctival injection, periorbital swelling ENT exam: Present: normal exam, mucous membranes moist Neck exam: Present: normal inspection. Absent: tenderness, meningismus, lymphadenopathy Respiratory exam: Present: normal lung sounds bilaterally. Absent: respiratory distress, wheezes, rales, rhonchi, stridor Cardiovascular Exam: Present: regular rate, normal rhythm, normal heart sounds. Absent: systolic murmur, diastolic murmur, rubs, gallop, clicks GI/Abdominal exam: Present: soft, normal bowel sounds. Absent: distended, tenderness, guarding, rebound, rigid Extremities exam: Present: normal inspection, full ROM, normal capillary refill. Absent: tenderness, pedal edema, joint swelling, calf tenderness Back exam: Present: normal inspection Neurological exam: Present: alert, oriented X3, CN II-XII intact Psychiatric exam: Present: normal affect, normal mood Skin exam: Present: warm, dry, intact, normal color. Absent: rash Course Vital Signs 07/03/23 07/03/23 11:41 14:08 Temperature 98.6 F 98.6 F Pulse Rate 75 57 L Respiratory 18 18 Rate Blood Pressure 94/58 122/70 O2 Sat by Pulse 97 97 Oximetry - Reevaluation(s) Reevaluation #1: Medical records reviewed Reevaluation #2: Patient symptoms are unchanged here in the ER Reevaluation #3: Results and questions answered Studies Chest x-ray is negative for acute disease Reevaluation #4: Was pt. sent in by a medical professional or institution (ROSS Morelos, CORPORATE SAFETY DIRECTOR, urgent care, hospital, or longterm...) When possible be specific @ -no Did you speak to anyone other than the patient for history (EMS, parent, family, police, friend...)? What history was obtained from this source @ -no Did you review nursing and triage notes (agree or disagree)? Why? @ -agree Are old charts reviewed (outside hosp., previous admission, EMS record, old EKG, old radiological studies, urgent care reports/EKG's, longterm records)? Report findings @ -yes Differential Diagnosis (chest pain, altered mental status, abdominal pain women, abdominal pain men, vaginal bleeding, weakness, fever, dyspnea, syncope, headache, dizziness, GI bleed, back pain, seizure, CVA, palpatations, mental health, musculoskeletal)? @ -prior EKG interpreted by me (3pts min.). @ -yes X-rays interpreted by me (1pt min.). @ -yes negative for acute disease CT interpreted by me (1pt min.). @ -no U/S interpreted by me (1pt. min.). @ -no What testing was considered but not performed or refused? (CT, X-rays, U/S, labs)? Why? @ -none What meds were considered but not given or refused? Why? @ -none Did you discuss the management of the patient with other professionals (professionals i.e. ROSS Morelos, CORPORATE SAFETY DIRECTOR, lab, RT, psych nurse, certified social workers in health care, home care administrator, teacher, chief school finance officer, family caseworker)? Give summary @ -no Was smoking cessation discussed for >3mins.? @ -no Was critical care preformed (if so, how long)? @ -no Were there social determinants of health that impacted care today? How? (Homelessness, low income, unemployed, alcoholism, drug addiction, transportation, low edu. Level, literacy, decrease access to med. care, correction, rehab)? @ -none Was there de-escalation of care discussed even if they declined (Discuss DNR or withdrawal of care, Hospice)? DNR status @ -no What co-morbidities impacted this encounter? (DM, HTN, Smoking, COPD, CAD, Cancer, CVA, ARF, Chemo, Hep., AIDS, mental health diagnosis, sleep apnea, morbid obesity)? @ -none Was patient admitted / discharged? Hospital course, mention meds given and route, prescriptions, significant lab abnormalities, going to OR and other pertinent info. @ - 62 male with nonspecific chest pain. Patient has no acute findings here in the ER and can be discharged home Discharge Undiagnosed new problem with uncertain prognosis? @ -no Drug Therapy requiring intensive monitoring for toxicity (Heparin, Nitro, Insulin, Cardizem)? @ -no Were any procedures done? @ -no Diagnosis/symptom? @ -Chest pain Acute, or Chronic, or Acute on Chronic? @ -Acute Uncomplicated (without systemic symptoms) or Complicated (systemic symptoms)? @ -Complicated Side effects of treatment? @ -no Exacerbation, Progression, or Severe Exacerbation? @ -exacerbation Poses a threat to life or bodily function? How? (Chest pain, [place], [place], pneumonia, PE, COPD, DKA, ARF, appy, cholecystitis, CVA, Diverticulitis, Homicidal, Suicidal, threat to staff... and all critical care pts) @ -yes with chest pain Reevaluation #5: Differential Chest Pain: Stable Angina, Unstable Angina, STEMI, NSTEMI Aortic Dissection, Pneumothorax, Musculoskeletal, Esophageal Spasm GERD, Cholecystitis, Pancreatitis, Zoster, this is not meant to be an all-inclusive list. Chest Pain MDM - MDM 62 male with nonspecific chest pain. Patient has no acute findings here in the ER and can be discharged home Disposition Clinical Impression: Atypical chest pain, Chest pain Disposition: HOME SELF-CARE Condition: Good Instructions (If sedation given, give patient instructions): Chest Pain (ED) Is patient prescribed a controlled substance at d/c from ED?: No Referrals: Allen Watkins DO [Primary Care Provider] - 1-2 days Time of Disposition: 13:35
[2023-07-03 12:17] LABS: Basophils # (A) 0.1 k/uL (0-0.2); Basophils % (A) 1 %; Eosinophils # (A) 0.3 k/uL (0-0.7); Eosinophils % (A) 3 %; HCT 39.4 % (34.0-46.0); HGB 13.2 gm/dL (11.4-16.0); Lymphocytes # (A) 2.4 k/uL (1.0-4.8); Lymphocytes % (A) 29 %; MCH 32.2 pg (25.0-35.0); MCHC 33.6 g/dL (31.0-37.0); MCV 95.8 fL (80.0-100.0); Mean Platelet Volume 8.2; Monocytes # (A) 0.4 k/uL (0-1.0); Monocytes % (A) 5 %; Neutrophils # (A) 4.8 k/uL (1.3-7.7); Neutrophils % (A) 58 %; Platelet Count 271 k/uL (150-450); RBC 4.11 m/uL (3.80-5.40); RDW 12.1 % (11.5-15.5); WBC 8.1 k/uL (3.8-10.6)
[2023-07-03 12:28] LABS: INR 0.9 (<1.2); Partial Thromboplastin Time 22.5 sec (22.0-30.0); Prothrombin Time 10.3 sec (10.0-12.5)
[2023-07-03 12:33] LABS: ALT 21 U/L (4-34); AST 28 U/L (14-36); African American GFR (CKD) 87 (>60 ml/min/1.73 sqM); Albumin 4.1 g/dL (3.5-5.0); Alkaline Phosphatase 72 U/L (38-126); Anion Gap 4 mmol/L; Blood Urea Nitrogen 17 mg/dL (7-17); Calcium 9.3 mg/dL (8.4-10.2); Carbon Dioxide 29 mmol/L (22-30); Chloride 107 mmol/L (98-107); Glucose 88 mg/dL (74-99); Lipase 166 U/L (23-300); Magnesium 2.1 mg/dL (1.6-2.3); Non-African American GFR(CKD) 76 (>60 ml/min/1.73 sqM); Potassium 3.8 mmol/L (3.5-5.1); Sodium 140 mmol/L (137-145); Total Bilirubin 0.3 mg/dL (0.2-1.3); Total Protein 6.8 g/dL (6.3-8.2)
[2023-07-03 12:34] VITALS: RESP 18; TEMP 98.6
[2023-07-03 12:41] LABS: NT-Pro-B-Type Natriuretic Pept 402 pg/mL
--- NOTE | 2023-07-03 14:17 | XR ---
EXAMINATION TYPE: XR chest 1V portable DATE OF EXAM: 07/03/2023 1:22 PM CLINICAL INDICATION:Female, 62 years old with history of chest pain; [facility] COMPARISON: Chest radiographs from 01/01/2023. TECHNIQUE: XR chest 1V portable Frontal view of the chest. FINDINGS: Lungs/Pleura: There is no evidence of pleural effusion, focal consolidation, or pneumothorax. Pulmonary vascularity: Unremarkable. Heart/mediastinum: Cardiomediastinal silhouette is unremarkable. Musculoskeletal: No acute osseous pathology. IMPRESSION: 1. No acute cardiopulmonary disease process. 2. COPD changes.
[2023-07-03 14:34] VITALS: BP 122/70; PULSE 57
== END 2023-07-03 14:10 | disposition home or self-care (01) ==
LOC: EC 11:28
DX: R07.89 Other chest pain (principal); J44.9 Chronic obstructive pulmonary disease, unspecified; I10 Essential (primary) hypertension; F41.9 Anxiety disorder, unspecified; F17.200 Nicotine dependence, unspecified, uncomplicated; F12.90 Cannabis use, unspecified, uncomplicated; Z79.899 Other long term (current) drug therapy; Z88.5 Allergy status to narcotic agent; Z88.8 Allergy status to other drugs, medicaments and biological substances
CPT/HCPCS: 36415; 71045; 80053; 83690; 83735; 83880; 84484; 85025; 85610; 85730; 93005; 99285

== ENCOUNTER 2024-03-16 08:05 | Observation (INO) | payer BC, OTHER ==
--- NOTE | 2024-03-16 08:21 | ED ---
General Adult HPI - General Chief complaint: Neuro Symptoms/Deficit Stated complaint: numbness Time Seen by Provider: 03/16/24 08:07 Source: patient, RN notes reviewed Mode of arrival: EMS Limitations: no limitations - History of Present Illness Initial comments: Patient is a 63-year-old female present to the emergency department with concern for left leg numbness. Onset of symptoms was around 630. Symptoms have improved however not completely resolved. Patient states there was difficulty feeling touching of her left leg however that has resolved. Patient questions if the leg had weakness. Patient questions if she had difficulty controlling t he left leg. At this time there is only mild numbness sensation. Patient denies any confusion or speech problems. No other area of weakness or concern - Related Data Home Medications Medication Instructions Recorded Confirmed ALPRAZolam [Xanax] 0.25 mg PO DAILY 01/25/15 10/13/23 Citalopram Hydrobromide [CeleXA] 40 mg PO DAILY 05/31/17 10/13/23 Cyclobenzaprine [Flexeril] 10 mg PO DAILY 05/31/17 10/13/23 Gabapentin [Neurontin] 300 mg PO DAILY 05/31/17 10/13/23 Mirabegron [Myrbetriq] 50 mg PO DAILY 12/20/22 10/13/23 Gabapentin 600 mg PO HS 12/29/22 10/13/23 Isosorbide Mononitrate ER [Imdur] 30 mg PO DAILY 12/29/22 10/13/23 Losartan-Hctz 50-12.5 mg [Hyzaar 1 tab PO DAILY 12/29/22 10/13/23 50-12.5] Previous Rx's Medication Instructions Recorded Aspirin 81 mg PO DAILY #30 tab 12/22/22 Atorvastatin [Lipitor] 80 mg PO DAILY #30 tab 12/22/22 Clopidogrel [Plavix] 75 mg PO DAILY #30 tab 12/22/22 Allergies Allergy/AdvReac Type Severity Reaction Status Date / Time hydrocodone Allergy Unknown Verified 10/13/23 09:17 lisinopril Allergy Unknown Verified 10/13/23 09:17 tramadol Allergy Itching Verified 10/13/23 09:17 Review of Systems ROS Statement: Those systems with pertinent positive or pertinent negative responses have been documented in the HPI. ROS Other: All systems not noted in ROS Statement are negative. Constitutional: Denies: fever Eyes: Denies: eye pain ENT: Denies: ear pain Respiratory: Denies: cough, dyspnea Cardiovascular: Denies: chest pain Neurological: Reports: as per HPI, numbness, paresthesias. Denies: headache, confusion Past Medical History Past Medical History: CVA/TIA, Fibromyalgia, Hyperlipidemia, Hypertension, Memory Impairment, Myocardial Infarction ([place]), Osteoarthritis ([place]) Additional Past Medical History / Comment(s): rt foot pain, Stroke 2014 or 2016- memory loss Last Myocardial Infarction Date:: 2023 History of Any Multi-Drug Resistant Organisms: None Reported Past Surgical History: Hysterectomy, Orthopedic Surgery Additional Past Surgical History / Comment(s): fusion rt foot surgery,carotid , carpel tunnel bilateral, bilaterl hand basal joint, and bilateral foot surgery, partial Hyst Past Anesthesia/Blood Transfusion Reactions: No Reported Reaction Past Psychological History: Anxiety Smoking Status: Current every day smoker - Past Family History Sister(s) Family Medical History: Cancer Additional Family Medical History / Comment(s): Ovarian cancer. Father Family Medical History: Cancer General Exam Limitations: no limitations General appearance: alert, in no apparent distress Head exam: Present: normocephalic Eye exam: Present: normal appearance, PERRL, EOMI ENT exam: Present: normal oropharynx Neck exam: Present: normal inspection. Absent: tenderness, meningismus Respiratory exam: Present: normal lung sounds bilaterally Cardiovascular Exam: Present: regular rate, normal rhythm Expanded Peripheral pulses: 2+: Posterior Tibialis (R), Posterior Tibialis (L) GI/Abdominal exam: Present: soft. Absent: tenderness Extremities exam: Present: normal inspection, full ROM. Absent: tenderness Back exam: Present: normal inspection. Absent: tenderness, vertebral tenderness Neurological exam: Present: alert, oriented X3, CN II-XII intact. Absent: motor sensory deficit Expanded Neurological exam: Present: protecting the airway Patient oriented to: Present: person, place, time Cranial nerves: EOM's Intact: Normal, Facial Sensation: Normal Sensory exam: Upper Extremity Light Touch: Normal, Lower Extremity Light Touch: Normal Motor strength exam: RUE: 5, LUE: 5, RLE: 5, LLE: 5 Eye Response: (4) open spontaneously Motor Response: (6) obeys commands Verbal Response: (5) oriented Psychiatric exam: Present: normal affect, normal mood Skin exam: Present: normal color Course Vital Signs 03/16/24 03/16/24 03/16/24 08:11 09:14 10:00 Temperature 98 F Pulse Rate 56 L 50 L 53 L Respiratory 20 16 16 Rate Blood Pressure 121/80 122/77 116/78 O2 Sat by Pulse 98 96 98 Oximetry EKG Findings - EKG Results: EKG: interpreted by ERMD, sinus rhythm, normal axis, normal QRS, normal ST/T EKG shows: bradycardia Medical Decision Making - Medical Decision Making Was pt. sent in by a medical professional or institution (, PA, CREDIT REPRESENTATIVE, urgent care, hospital, or usp...) When possible be specific @ -No Did you speak to anyone other than the patient for history (EMS, parent, family, police, friend...)? What history was obtained from this source @ -No Did you review nursing and triage notes (agree or disagree)? Why? @ -I reviewed and agree with nursing and triage notes Were old charts reviewed (outside hosp., previous admission, EMS record, old EKG, old radiological studies, urgent care reports/EKG's, usp records)? Report findings @ -Previous CT reviewed Differential Diagnosis (chest pain, altered mental status, abdominal pain women, abdominal pain men, vaginal bleeding, weakness, fever, dyspnea, syncope, headache, dizziness, GI bleed, back pain, seizure, CVA, palpatations, mental health, musculoskeletal)? @ -Differential Weakness: Hypoglycemia, shock, sepsis, hyponatremia, anemia, infection, [place], ETOH, adverse medicine reaction, overdose, stroke, this is not meant to be an all-inclusive list. EKG interpreted by me (3pts min.). @ -As above X-rays interpreted by me (1pt min.). @ -Chest x-ray shows no acute process CT interpreted by me (1pt min.). @ -CT scan shows possible ischemic changes since previous CT of 2019 U/S interpreted by me (1pt. min.). @ -None done What testing was considered but not performed or refused? (CT, X-rays, U/S, labs)? Why? @ -None What meds were considered but not given or refused? Why? @ -Consider tPA however patient is not a candidate secondary to NIH of 0, risks felt to outweigh the benefits Did you discuss the management of the patient with other professionals (professionals i.e. DrMari, PA, CREDIT REPRESENTATIVE, lab, RT, psych nurse, social work nurse, printer [employer] print [employer], teacher, global chief creative officer, manager case management)? Give summary @ -Case discussed with Dr. Knight who will admit covering Dr. Matthews me Was smoking cessation discussed for >3mins.? @ -No Was critical care preformed (if so, how long)? @ -No Were there social determinants of health that impacted care today? How? (Homelessness, low income, unemployed, alcoholism, drug addiction, transportation, low edu. Level, literacy, decrease access to med. care, penitentiary, rehab)? @ -No Was there de-escalation of care discussed even if they declined (Discuss DNR or withdrawal of care, Hospice)? DNR status @ -No What co-morbidities impacted this encounter? (DM, HTN, Smoking, COPD, CAD, Cancer, CVA, ARF, Chemo, Hep., AIDS, mental health diagnosis, sleep apnea, morbid obesity)? @ -Questionable history of previous TIA/CVA Was patient admitted / discharged? Hospital course, mention meds given and route, prescriptions, significant lab abnormalities, going to OR and other pertinent info. @ -Patient presents with left leg numbness, questionable loss of sensation or weakness. NIH is 0. Patient will be admitted with neuro consult. Admission orders written. Undiagnosed new problem with uncertain prognosis? @ -No Drug Therapy requiring intensive monitoring for toxicity (Heparin, Nitro, Insulin, Cardizem)? @ -No Were any procedures done? @ -No Diagnosis/symptom? @ -TIA Acute, or Chronic, or Acute on Chronic? @ -Acute Uncomplicated (without systemic symptoms) or Complicated (systemic symptoms)? @ -Default Side effects of treatment? @ -No Exacerbation, Progression, or Severe Exacerbation? @ -No Poses a threat to life or bodily function? How? (Chest pain, [place], [place], pneumonia, PE, COPD, DKA, ARF, appy, cholecystitis, CVA, Diverticulitis, Homicidal, Suicidal, threat to staff... and all critical care pts) @ -Threat to neurological function - Lab Data Result diagrams: 03/16/24 08:18 03/16/24 08:18 Lab Results 03/16/24 03/16/24 03/16/24 Range/Units 08:18 08:18 08:18 WBC 6.2 (3.8-10.6) k/uL RBC 3.90 (3.80-5.40) m/uL Hgb 12.3 (11.4-16.0) gm/dL Hct 37.7 (34.0-46.0) % MCV 96.7 (80.0-100.0) fL MCH 31.5 (25.0-35.0) pg MCHC 32.6 (31.0-37.0) g/dL RDW 12.2 (11.5-15.5) % Plt Count 251 (150-450) k/uL MPV 7.2 Neutrophils % 59 % Lymphocytes % 28 % Monocytes % 6 % Eosinophils % 3 % Basophils % 1 % Neutrophils # 3.6 (1.3-7.7) k/uL Lymphocytes # 1.7 (1.0-4.8) k/uL Monocytes # 0.4 (0-1.0) k/uL Eosinophils # 0.2 (0-0.7) k/uL Basophils # 0.0 (0-0.2) k/uL PT 10.4 (10.0-12.5) sec INR 0.9 (<1.2) APTT 23.1 (22.0-30.0) sec Sodium 139 (137-145) mmol/L Potassium 3.3 L (3.5-5.1) mmol/L Chloride 106 (98-107) mmol/L Carbon Dioxide 30 (22-30) mmol/L Anion Gap 3 mmol/L BUN 16 (7-17) mg/dL Creatinine 0.74 (0.52-1.04) mg/dL Est GFR (CKD-EPI)AfAm >90 (>60 ml/min/1.73 sqM) Est GFR (CKD-EPI)NonAf 88 (>60 ml/min/1.73 sqM) Glucose 94 (74-99) mg/dL Calcium 8.9 (8.4-10.2) mg/dL Total Bilirubin 0.6 (0.2-1.3) mg/dL AST 26 (14-36) U/L ALT 16 (4-34) U/L Alkaline Phosphatase 60 (38-126) U/L Creatine Kinase 162 H (30-135) U/L Total Protein 6.2 L (6.3-8.2) g/dL Albumin 3.9 (3.5-5.0) g/dL Disposition Clinical Impression: Transient cerebral ischemia Disposition: ADMITTED IP TO THIS HOSP Is patient prescribed a controlled substance at d/c from ED?: No Referrals: Allen Watkins DO [Primary Care Provider] - 1-2 days Time of Disposition: 10:15
[2024-03-16 08:35] LABS: Basophils % (A) 1 %; Eosinophils # (A) 0.2 k/uL (0-0.7); Eosinophils % (A) 3 %; HCT 37.7 % (34.0-46.0); HGB 12.3 gm/dL (11.4-16.0); Lymphocytes # (A) 1.7 k/uL (1.0-4.8); Lymphocytes % (A) 28 %; MCH 31.5 pg (25.0-35.0); MCHC 32.6 g/dL (31.0-37.0); MCV 96.7 fL (80.0-100.0); Mean Platelet Volume 7.2; Monocytes # (A) 0.4 k/uL (0-1.0); Monocytes % (A) 6 %; Neutrophils # (A) 3.6 k/uL (1.3-7.7); Neutrophils % (A) 59 %; Platelet Count 251 k/uL (150-450); RDW 12.2 % (11.5-15.5); WBC 6.2 k/uL (3.8-10.6)
[2024-03-16 08:45] LABS: INR 0.9 (<1.2); Partial Thromboplastin Time 23.1 sec (22.0-30.0); Prothrombin Time 10.4 sec (10.0-12.5)
--- NOTE | 2024-03-16 08:55 | XR ---
EXAMINATION TYPE: XR chest 2V DATE OF EXAM: 03/16/2024 8:45 AM CLINICAL INDICATION: Female, 63 years old with history of altered mental status; [facility] COMPARISON: 07/03/2023 TECHNIQUE: XR chest 2V Frontal and lateral views of the chest. FINDINGS: Lungs/Pleura: There is no evidence of pleural effusion, focal consolidation, or pneumothorax. Pulmonary vascularity: Unremarkable. Heart/mediastinum: Cardiomediastinal silhouette is unremarkable. Musculoskeletal: No acute osseous pathology. IMPRESSION: No acute cardiopulmonary disease/process. [facility], , 03/16/2024 8:53 AM
--- NOTE | 2024-03-16 08:58 | CT ---
EXAMINATION TYPE: CT brain wo con CT DLP: 1129.6 mGycm, Automated exposure control for dose reduction was used. DATE OF EXAM: 03/16/2024 8:52 AM COMPARISON: 5 06/08/2018 CLINICAL INDICATION: Female, 63 years old with history of Neuro deficit, acute, stroke suspected, lef t side numbness and episode of confusion this am. hx of CVA TECHNIQUE: Brain: Axial CT images of the brain were obtained with coronal and sagittal reformats created and rev iewed. Contrast used: None. Oral contrast used: None. FINDINGS: Brain: Extra-axial spaces: No abnormal extra-axial fluid collections. Ventricular system: Within normal limits Cerebral parenchyma: There is new Matter changes r from prior in 2019 involving the right escalante radi daniel and left escalante radiata. No acute intraparenchymal hemorrhage or mass effect. The fuentes-white rod ction is well differentiated. Cerebellum: Unremarkable. Mass effect: No evidence of midline shift. Intracranial vasculature: unremarkable Soft tissues: Normal. Calvarium/osseous structures: No depressed skull fracture. Paranasal sinuses and mastoid air cells: Mild scattered paranasal sinus disease. Visualized orbits: Orbital contents are intact. IMPRESSION: New from 2019, white matter changes bilaterally compared to 2019 possibly representing CVA. Further e valuation MRI recommended. [facility], , 03/16/2024 8:56 AM
[2024-03-16 08:59] LABS: ALT 16 U/L (4-34); AST 26 U/L (14-36); African American GFR (CKD) >90 (>60 ml/min/1.73 sqM); Albumin 3.9 g/dL (3.5-5.0); Alkaline Phosphatase 60 U/L (38-126); Anion Gap 3 mmol/L; Blood Urea Nitrogen 16 mg/dL (7-17); Calcium 8.9 mg/dL (8.4-10.2); Carbon Dioxide 30 mmol/L (22-30); Chloride 106 mmol/L (98-107); Creatine Kinase 162 U/L (30-135); Glucose 94 mg/dL (74-99); Non-African American GFR(CKD) 88 (>60 ml/min/1.73 sqM); Potassium 3.3 mmol/L (3.5-5.1); Sodium 139 mmol/L (137-145); Total Bilirubin 0.6 mg/dL (0.2-1.3); Total Protein 6.2 g/dL (6.3-8.2)
--- NOTE | 2024-03-16 09:10 | CT ---
EXAMINATION TYPE: CT angio head neck CT DLP: 390 mGycm, Automated exposure control for dose reduction was used. DATE OF EXAM: 03/16/2024 8:53 AM COMPARISON: CT head same day. CLINICAL INDICATION: Female, 63 years old with history of Neuro deficit, acute, stroke suspected; PHH , left side numbness and episode of confusion this am. hx of CVA TECHNIQUE: Axially acquired helical CT angiogram of the head and neck was obtained with contrast. Axi al images are supplemented with 3D reconstructions and MIP images which were post-processed at an in dependent workstation. NASCET criteria used. Contrast used:65ml mL of Isovue 370 with IV Contrast, Oral contrast used: None. FINDINGS: CTA HEAD: No evidence of acute intracranial hemorrhage, mass effect, or midline shift. The ventricles, sulci, a nd cisterns are unremarkable. Vertebral arteries: The vertebral arteries are patent. Vertebral artery dominance: Codominant Basilar artery: The basilar artery is intact. The basilar artery bifurcation is normal. Internal Carotid arteries: The cervical, petrous, cavernous and supraclinoid segments are normal. KIKO: Nonvisualization the right A1 segment both arteries originate off the left. Patent with no evide nce of aneurysm. ACOM: Present without evidence of aneurysm. MCA: Patent with no evidence of aneurysm. SALES EXEC: Patent with no evidence of aneurysm. PCOM: Hypoplastic bilaterally. Dural sinuses: Patent. CTA NECK: Right Carotid System: The common carotid artery and external carotid artery are patent. The carotid bifurcation demonstrate s no evidence of hemodynamically significant stenosis. The remaining portions of the internal carotid artery demonstrate normal size without significant narrowing. Left Carotid System: The common carotid and external carotid arteries are patent. There is 25% stenosis at the carotid bif urcation secondary to calcified/noncalcified plaque. The rest of the internal carotid artery is paten t. Hypoplastic left vertebral artery compared to the right with right dominance.. There is a three-vessel aortic arch. The origins of the great vessels are patent. No evidence of hemo dynamically significant stenosis. IMPRESSION: 1. No evidence of dissection of the cervical internal carotid arteries. 2. No any evidence of significant stenosis at the carotid bifurcations. 3. No evidence of intracranial high-grade stenosis or intracranial aneurysm. 4. 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 5. Hypoplastic right A1 segment. [facility], , 03/16/2024 9:08 AM
[2024-03-16] MEDS: ASPIRIN 325 MG TAB PO STA (11:19)
[2024-03-16] MEDS: SODIUM CHLORIDE 0.9% 1,000 ML IV SCH (11:21)
[2024-03-16] MEDS ORDERED: ALPRAZolam 0.25 MG TAB PO PRN (12:16)
--- NOTE | 2024-03-16 13:49 | P.HPIM ---
History of Present Illness H&P Date: 03/16/24 63 year old F with PMH of CVA/TIA, CAD, HTN, Fibromyalgia, Anxiety presents to the ED. She reports numbness in her left hip all the way down to her foot that started this morning. She also reports some weakness in that leg. She denies any slurred speech, confusion, difficulty swallowing or speaking. These symptoms prompted her to come to the ED. Her symptoms have resolved during the encounter. In the ED she underwent extensive evaluation. BP 130/68, HR 60, RR 16, 98% on RA. CBC, Coag panel, CMP significant for K 3.3. CPK 162. CXR negative. Brain CT white matter changes bilaterally. CTA head and neck no evidence of significant stenosis of the carotids. EKG sinus bradycardia. Patient is admitted for CVA rule out. General: non toxic, no distress, appears at stated age Derm: warm, dry Head: atraumatic, normocephalic, symmetric Eyes: EOMI, no lid lag, anicteric sclera Mouth: no lip lesion, mucus membranes moist Cardiovascular: S1S2 reg, no murmur Lungs: Clear to auscultation bilateral, no rhonchi, no rales, no accessory muscle use Ext: no gross muscle atrophy, no edema, no contractures Neuro: no focal neuro deficits Psych: Alert, oriented, appropriate affect Based on my assessment of this patient, this patient meets a high complexity level of care. LLE numbness: TIA versus CVA. Pursue CVA workup. MRI brain. Echo. Advanced neurochecks. Telemetry monitoring. ASA 325 mg PO QD. Plavix 75 mg PO QD. Lipitor 80 mg PO QD. A1c and Lipid panel ordered. PT/OT/ST consulted. Neurology consu lted. CAD: ASA, Plavix, Lipitor as above. HTN: Imdur 30 mg PO QD. Fibromyalgia: Flexeril 10 mg PO QD. Gabapentin 300 mg PO QD + 600 mg PO QHS. Anxiety: Xanax 0.25 mg PO QD PRN. CODE STATUS: FULL CODE DVT Prophylaxis: Heparin SQ GI Prophylaxis: Designated medical POA if patient is not able to make medical decisions for themselves: Mother I have reviewed the following oracle application consultant notes: ED note. I have reviewed the results of the following tests: As above. I have ordered the following tests: As above. I have discussed the care of this patient with the following independent historian: I have independently interpreted the following test below: CXR. Past Medical History Past Medical History: CVA/TIA, Fibromyalgia, Hyperlipidemia, Hypertension, Memory Impairment, Myocardial Infarction ([place]), Osteoarthritis (OA) Additional Past Medical History / Comment(s): rt foot pain, Stroke 2014 or 2015- memory loss Last Myocardial Infarction Date:: 2023 History of Any Multi-Drug Resistant Organisms: None Reported Past Surgical History: Hysterectomy, Orthopedic Surgery Additional Past Surgical History / Comment(s): fusion rt foot surgery,carotid , carpel tunnel bilateral, bilaterl hand basal joint, and bilateral foot surgery, partial Hyst Past Anesthesia/Blood Transfusion Reactions: No Reported Reaction Past Psychological History: Anxiety Smoking Status: Current every day smoker - Past Family History Sister(s) Family Medical History: Cancer Additional Family Medical History / Comment(s): Ovarian cancer. Father Family Medical History: Cancer Medications and Allergies Home Medications Medication Instructions Recorded Confirmed Type ALPRAZolam [Xanax] 0.25 mg PO DAILY PRN 01/25/15 03/16/24 History Citalopram Hydrobromide [CeleXA] 40 mg PO DAILY 05/31/17 03/16/24 History Cyclobenzaprine [Flexeril] 10 mg PO DAILY 05/31/17 03/16/24 History Gabapentin [Neurontin] 300 mg PO DAILY 05/31/17 03/16/24 History Mirabegron [Myrbetriq] 50 mg PO DAILY 12/20/22 03/16/24 History Atorvastatin [Lipitor] 80 mg PO DAILY #30 tab 12/22/22 03/16/24 Rx Clopidogrel [Plavix] 75 mg PO DAILY #30 tab 12/22/22 03/16/24 Rx Gabapentin 600 mg PO HS 12/29/22 03/16/24 History Isosorbide Mononitrate ER [Imdur] 30 mg PO DAILY 12/29/22 03/16/24 History Losartan-Hctz 50-12.5 mg [Hyzaar 1 tab PO DAILY 12/29/22 03/16/24 History 50-12.5] Nystatin/Triamcin 1 applic TOPICAL BID PRN 03/16/24 03/16/24 History [Nystatin-Triamcinolone Cream] Allergies Allergy/AdvReac Type Severity Reaction Status Date / Time hydrocodone Allergy Unknown Verified 03/16/24 11:16 lisinopril Allergy Unknown Verified 03/16/24 11:16 tramadol Allergy Itching Verified 03/16/24 11:16 Physical Exam Vitals: Vital Signs Temp Pulse Resp BP Pulse Ox 03/16/24 12:53 60 16 130/68 98 03/16/24 12:00 60 16 130/60 98 03/16/24 10:00 53 L 16 116/78 98 03/16/24 09:14 50 L 16 122/77 96 03/16/24 08:11 98 F 56 L 20 121/80 98 Intake and Output 03/15/24 03/16/24 03/16/24 22:59 06:59 14:59 Other: Weight 58.967 kg Results CBC & Chem 7: 03/16/24 08:18 03/16/24 08:18 Labs: Abnormal Lab Results - Last 24 Hours (Table) 03/16/24 Range/Units 08:18 Potassium 3.3 L (3.5-5.1) mmol/L Creatine Kinase 162 H (30-135) U/L Total Protein 6.2 L (6.3-8.2) g/dL
[2024-03-16] MEDS: POTASSIUM CHLORIDE ER 20 MEQ TAB.ER PO STA (17:17)
--- NOTE | 2024-03-16 17:47 | P.CNNES ---
History of Present Illness Consult date: 03/16/24 Requesting physician: Ronaldo Faulkner Reason for Consult: TIA History of Present Illness: This is a telemedicine neurology consultation performed today on 03/16/2024, in coordination with Devorah Hernandez. Patient is a 63-year-old right-handed female came to the hospital today at 8:05 AM by ambulance. EMS flow sheet not available in the chart. Patient states that she woke up this morning at 3 AM and was feeling fine. She went to work at 6:30 AM. Suddenly she noticed her left leg became numb from hip down all the w ay to the foot. She could not feel the left leg. She wanted to walk to the office but the left leg did not feel right, like "stupid", as she states. She could not explain. She feels dragging of the left leg. Patient did not have any symptoms involving the arm or the facial region while she was at home. When she arrived at the ER, she noticed transient tingling and numbness of the left facial region that lasted only for a couple minutes. Vital signs arrival blood pressure 121/80, pulse rate 56 temperature 98.0. Blood test shows normal CBC, PT/PTT, normal CMP. CK 162. EKG showed ectopic atrial bradycardia. Possible left atrial enlargement. Chest x-ray showed no acute cardioverter process. CT head revealed new from 2018, white matter changes bilaterally compared to 07/03/2018 possibly representing CVA. I personally reviewed CT head, and agree with the findings. Overall there are multifocal areas of possible chronic ischemia involving the left occipital lobe, right side of the mitzi, and some small vessel disease involving bilateral centrum semiovale. Patient states that while she was in the ER, she went to sleep, and when she woke up, she felt fine. She went to the bathroom a few minutes ago and back to the room and felt normal. She did not have any slurred speech, facial droop, loss of memory that this spell. No visual disturbance. Patient states that she had a stroke at age 52-she couldn't walk, couldn't talk right. The symptoms lasted for 6 months. Patient underwent right CEA. Patient also mentions that about couple months ago she had a "stroke", when she did not seek any medical attention. She felt very disoriented and did not remember a lot of details. 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 She went to the parking lot, and could not find her vehicle. A coworker drove her home. She does not remember going home, and then laying under a tree. While walking she felt like "drugged" she "could not stand right". Patient states that she finally felt asleep and next day she was back to normal. There were no residual deficits. She did not have insurance therefore she did not seek medical attention. Patient has history of hypertension, hyperlipidemia but denies diabetes. Patient has history of migraines every 6 months. Home medications include Xanax, Celexa 40 mg, gabapentin 300 mg daily, Flexeril, Myrbetriq, Lipitor 80 mg, [id number] mg, and aspirin 81 mg daily, gabapentin 600 mg at bedtime, Hyzaar, isosorbide. Patient has smoked 1 pack per week for 30 years. Just in the last 1 year, she has increased smoking up to 1 pack every 3 days. She also sometimes uses nicotine vaping. Denies any alcohol or marijuana use. Patient had an MRI about a year ago. Review of Systems All pertinent positive and negatives mentioned in HPI, otherwise unremarkable. Past Medical History Past Medical History: CVA/TIA, Fibromyalgia, Hyperlipidemia, Hypertension, Memory Impairment, Myocardial Infarction ([place]), Osteoarthritis (OA) Additional Past Medical History / Comment(s): rt foot pain, Stroke 2014 or 2016-memory loss Last Myocardial Infarction Date:: 2023 History of Any Multi-Drug Resistant Organisms: None Reported Past Surgical History: Hysterectomy, Orthopedic Surgery Additional Past Surgical History / Comment(s): fusion rt foot surgery,carotid , carpel tunnel bilateral, bilaterl hand basal joint, and bilateral foot surgery, partial Hyst Past Anesthesia/Blood Transfusion Reactions: No Reported Reaction Past Psychological History: Anxiety Smoking Status: Current every day smoker - Past Family History Sister(s) Family Medical History: Cancer Additional Family Medical History / Comment(s): Ovarian cancer. Father Family Medical History: Cancer Medications and Allergies Home Medications Medication Instructions Recorded Confirmed Type ALPRAZolam [Xanax] 0.25 mg PO DAILY PRN 01/25/15 03/16/24 History Citalopram Hydrobromide [CeleXA] 40 mg PO DAILY 05/31/17 03/16/24 History Cyclobenzaprine [Flexeril] 10 mg PO DAILY 05/31/17 03/16/24 History Gabapentin [Neurontin] 300 mg PO DAILY 05/31/17 03/16/24 History Mirabegron [Myrbetriq] 50 mg PO DAILY 12/20/22 03/16/24 History Atorvastatin [Lipitor] 80 mg PO DAILY #30 tab 12/22/22 03/16/24 Rx Clopidogrel [Plavix] 75 mg PO DAILY #30 tab 12/22/22 03/16/24 Rx Gabapentin 600 mg PO HS 12/29/22 03/16/24 History Isosorbide Mononitrate ER [Imdur] 30 mg PO DAILY 12/29/22 03/16/24 History Losartan-Hctz 50-12.5 mg [Hyzaar 1 tab PO DAILY 12/29/22 03/16/24 History 50-12.5] Nystatin/Triamcin 1 applic TOPICAL BID PRN 03/16/24 03/16/24 History [Nystatin-Triamcinolone Cream] Allergies Allergy/AdvReac Type Severity Reaction Status Date / Time hydrocodone Allergy Unknown Verified 03/16/24 11:16 lisinopril Allergy Unknown Verified 03/16/24 11:16 tramadol Allergy Itching Verified 03/16/24 11:16 Physical Examination - Vital Signs Vital Signs: Vital Signs Temp Pulse Resp BP Pulse Ox 03/16/24 12:00 60 16 130/60 98 03/16/24 10:00 53 L 16 116/78 98 03/16/24 09:14 50 L 16 122/77 96 03/16/24 08:11 98 F 56 L 20 121/80 98 Intake and Output 03/15/24 03/16/24 03/16/24 22:59 06:59 14:59 Other: Weight 58.967 kg Patient is a middle aged female, in no acute distress. Patient is alert awake oriented to time place and person. Speech and language functions are normal. Patient can name and repeat very well. No aphasia or dysarthria. Attention, concentration and fund of knowledge is adequate. On cranial nerve examination, pupils are equal, round and reacting to light, visual chow are full on confrontation, with no neglect on double simultaneous stimulation. Extraocular muscles are intact with no nystagmus. Face is symmetric, tongue protrudes to the midline. Palatal elevation and sensation normal, hearing and shoulder shrug normal, facial sensation decreased on the left, as compared to the right. On muscle strength testing, there is left-sided drift without pronation. The strength is diffusely 5 in the right upper and the right lower extremity, whereas diffusely 4 in the left upper and lower extremities, distally and proximally. Deep tendon reflexes are symmetric 1+ at the biceps, respiratory illness, 2+ at the knees and plantars downgoing the right, withdrawal on the left. Sensory to touch is equal in the arms. It is equal in the thigh region, but decrease in the left foot as compared to the right. Cerebellar function showed no ataxia for [id number] testing. No dysdiadochokinesia. No ataxia for [id number] testing on either side. Tone and bulk of muscles normal. Gait deferred.. On general examination, there is no carotid bruit or murmur, S1-S2 audible. Chest is clear on consultation. Abdomen is soft nontender. No organomegaly, bowel sounds present. Peripheral pulses are present. No peripheral edema. Results - Laboratory Findings CBC and BMP: 03/16/24 08:18 03/16/24 08:18 Abnormal Lab Findings: Abnormal Labs 03/16/24 08:18 Potassium 3.3 L Creatine Kinase 162 H Total Protein 6.2 L Assessment and Plan Assessment: * Acute onset of left arm numbness and weakness, that seems to have mostly resolved per patient. However examination revealed some weakness in the left upper and lower extremity. Rule out stroke/TIA. * History of CVA at age 52, with no residual deficits * History of possible TIA "couple months ago" with no residual deficits. * History of right CEA * Hypertension * Hyperlipidemia * Tobacco use Plan: * MRI of the brain with and without contrast, evaluate for acute CVA, rule out demyelinating disease * 2-D echo with bubble study to rule out PFO * CTA head and neck showed: No evidence of dissection of the cervical internal carotid arteries. No evidence of significant stenosis at the carotid bifurcation. No evidence of intracranial high-grade stenosis or intracranial aneurysm. Right dominant vertebral artery with hypoplastic left vertebral artery. Hypoplastic right A1 segment. * Fasting a.m. lipid panel. Continue Lipitor 80 mg daily. * Hemoglobin A1c * B12, folate * Permissive hypertension for next 24-48 hours * Continue Plavix 75 mg and aspirin (Home dose DAPT). Patient was on aspirin 81 mg, now increased the dose at 325 mg. * Neuro checks every 4 hours. * Telemetry monitoring rule out any arrhythmia * EEG, rule out epileptiform activity. Patient had recurrent stroke/TIA. * PT, OT, speech therapy * DVT prophylaxis: Lovenox 40 mg subcu daily * Neurology will continue to follow. Thank you for the consult. Time with Patient: Greater than 30
[2024-03-16] MEDS: CLOPIDOGREL 75 MG TAB PO STA (18:43)
[2024-03-16] MEDS: GABAPENTIN 300 MG CAP PO SCH ×2 (20:31→20:32)
[2024-03-17] MEDS: CYCLOBENZAPRINE 10 MG TAB PO SCH (08:09)
[2024-03-17] MEDS: ASPIRIN 325 MG TAB PO SCH (08:09)
[2024-03-17] MEDS: CLOPIDOGREL 75 MG TAB PO SCH (08:09)
[2024-03-17] MEDS: ENOXAPARIN 40 MG/0.4 ML SYRINGE SQ SCH (08:09)
[2024-03-17] MEDS: ATORVASTATIN 80 MG TAB PO SCH (08:09)
[2024-03-17] MEDS: CITALOPRAM HYDROBROMIDE 20 MG TAB PO SCH (08:09)
[2024-03-17] MEDS: ISOSORBIDE MONONITRATE ER 30 MG TAB.ER.24H PO SCH (08:09)
[2024-03-17] MEDS: NON FORMULARY DRUG (Mirabegron [Myrbetriq] 50 MG Tab.Er.24h) PO SCH (08:30)
--- NOTE | 2024-03-17 12:43 | P.PN ---
Subjective Progress Note Date: 03/17/24 63 year old F with PMH of CVA/TIA, CAD, HTN, Fibromyalgia, Anxiety presents to the ED. She reports numbness in her left hip all the way down to her foot that started this morning. She also reports some weakness in that leg. She denies any slurred speech, confusion, difficulty swallowing or speaking. These symptoms prompted her to come to the ED. Her symptoms have resolved during the encounter. In the ED she underwent extensive evaluation. BP 130/68, HR 60, RR 16, 98% on RA. CBC, Coag panel, CMP significant for K 3.3. CPK 162. CXR negative. Brain CT white matter changes bilaterally. CTA head and neck no evidence of significant stenosis of the carotids. EKG sinus bradycardia. Patient is admitted for CVA rule out. 03/17 Patient was seen and examined. No events overnight. Sleeping comfortably with sheet over her head. Per RN, numbness has resolved. MRI brain, Echo, EEG pending. General: non toxic, no distress, appears at stated age Derm: warm, dry Head: atraumatic, normocephalic, symmetric Eyes: no lid lag, anicteric sclera Mouth: no lip lesion, mucus membranes moist Cardiovascular: Good distal perfusion in all 4 extremities Lungs: breathing comfortably, no accessory muscle use Ext: no gross muscle atrophy, no edema, no contractures Psych: Alert, oriented, appropriate affect Based on my assessment of this patient, this patient meets a high complexity level of care. LLE numbness: TIA versus CVA. Pursue CVA workup. MRI brain. Echo. EEG. Advanced neurochecks. Telemetry monitoring. ASA 325 mg PO QD. Plavix 75 mg PO QD. Lipitor 80 mg PO QD. A1c and Lipid panel ordered. PT/OT/ST consulted. Neurology on board. CAD: ASA, Plavix, Lipitor as above. HTN: Imdur 30 mg PO QD. Fibromyalgia: Flexeril 10 mg PO QD. Gabapentin 300 mg PO QD + 600 mg PO QHS. Anxiety: Xanax 0.25 mg PO QD PRN. CODE STATUS: FULL CODE DVT Prophylaxis: Heparin SQ GI Prophylaxis: Designated medical POA if patient is not able to make medical decisions for themselves: Mother I have reviewed the following weight loss sales consultant notes: Neuro note. I have reviewed the results of the following tests: I have ordered the following tests: I have discussed the care of this patient with the following independent historian: SUMIT. I have independently interpreted the following test below: Objective - Vital Signs Vital signs: Vital Signs Temp 98.1 F 03/17/24 08:15 Pulse 53 L 03/17/24 08:15 Resp 18 03/17/24 08:15 BP 138/97 03/17/24 08:15 Pulse Ox 96 03/17/24 08:15 FiO2 Intake & Output 03/16/24 03/17/24 03/17/24 18:59 06:59 18:59 Weight 58.967 kg - Labs CBC & Chem 7: 03/16/24 08:18 03/16/24 08:18 Labs: Abnormal Lab Results - Last 24 Hours (Table) 03/16/24 Range/Units 08:18 Potassium 3.3 L (3.5-5.1) mmol/L Creatine Kinase 162 H (30-135) U/L Total Protein 6.2 L (6.3-8.2) g/dL
[2024-03-17 13:11] LABS: Chol/HDL Ratio 2.33 Ratio; LDL Cholesterol,Calculated 68.6 mg/dL (0.0-131.0); VLDL Calculation 16.86 mg/dL (5.00-40.00)
[2024-03-17] MEDS: LOSARTAN-HCTZ 50-12.5 MG 1 EACH TAB PO SCH (15:07)
[2024-03-18 05:31] VITALS: TEMP 97.8
[2024-03-18 08:34] VITALS: RESP 16
[2024-03-18 11:29] VITALS: BP 132/77; PULSE 55
[2024-03-18 11:33] LABS: RBC 4.29 m/uL (3.80-5.40); WBC 9.3 k/uL (3.8-10.6)
--- NOTE | 2024-03-18 11:33 | MR ---
EXAMINATION TYPE: MR brain wo/w con DATE OF EXAM: 03/18/2024 10:21 AM COMPARISON: 04/30/2014.. CLINICAL INDICATION: Female, 63 years old with history of CVA, CVA. Neurological deficit. TECHNIQUE: Multi planar, multi sequence imaging was performed through the brain including: T1, T2, In version recovery, susceptibility weighted imaging and gradient echo imaging and Diffusion weighted im aging. The patient was then given intravenous contrast and multi planar, T1 fat-saturation images wer e obtained. IV Contrast: 6 cc Gadobutrol FINDINGS: Minimal interstitial left occipital lobe with gliosis. Mild cerebral atrophy with proportio nal dilation of ventricular system. Diffusion-weighted imaging shows no evidence of restricted diffu annalee to suggest acute/subacute infarct. Intracranial arterial flow voids are maintained. Midline stru ctures show no abnormality. Scattered foci of high T2 signal intensity are seen within the periventri cular white matter. The susceptibility weighted images do not reveal any evidence for micro-hemorrhag e. After administration of gadolinium, no abnormal enhancement is seen. The bone marrow signal is within normal limits. Paranasal sinuses and mastoid air cells: No significant paranasal sinus disease. Visualized orbits: Orbital contents are intact. IMPRESSION: 1. No evidence of intracranial mass, acute/subacute infarct, or abnormal enhancement. 2. Nonspecific white matter changes, likely related to small vessel ischemic disease. 3. 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 [facility], , 03/18/2024 11:30 AM
[2024-03-18 11:34] LABS: Basophils # (A) 0.1 k/uL (0-0.2); Basophils % (A) 1 %; Eosinophils # (A) 0.3 k/uL (0-0.7); Eosinophils % (A) 4 %; HCT 41.7 % (34.0-46.0); HGB 13.5 gm/dL (11.4-16.0); Lymphocytes # (A) 1.7 k/uL (1.0-4.8); Lymphocytes % (A) 19 %; MCH 31.5 pg (25.0-35.0); MCHC 32.4 g/dL (31.0-37.0); MCV 97.2 fL (80.0-100.0); Mean Platelet Volume 7.3; Monocytes # (A) 0.5 k/uL (0-1.0); Monocytes % (A) 6 %; Neutrophils # (A) 6.4 k/uL (1.3-7.7); Neutrophils % (A) 68 %; Platelet Count 261 k/uL (150-450); RDW 12.2 % (11.5-15.5)
[2024-03-18 11:40] LABS: African American GFR (CKD) 85 (>60 ml/min/1.73 sqM); Anion Gap 2 mmol/L; Blood Urea Nitrogen 15 mg/dL (7-17); Calcium 9.1 mg/dL (8.4-10.2); Carbon Dioxide 31 mmol/L (22-30); Chloride 105 mmol/L (98-107); Glucose 87 mg/dL (74-99); Non-African American GFR(CKD) 74 (>60 ml/min/1.73 sqM); Potassium 4.1 mmol/L (3.5-5.1); Sodium 138 mmol/L (137-145)
--- NOTE | 2024-03-18 11:49 | CA ---
Transthoracic Echo Report Name: Essence Dela Cruz Age: 63 Gender: F : 1960 Exam Date: 03/16/2024 13:33 Exam Location: [facility] Ht (in): 63 Wt (lb): 130 Ordering Physician: Ronaldo Faulkner DO Attending/Referring Phys: [employer] Manufacturing Tech Ruthie Campos RDCS Procedure CPT: Indications: Thrombus Cardiac Hx: Technical Quality: Fair Contrast 1: Total Dose (mL): Contrast 2: Total Dose (mL): MEASUREMENTS (Male / Female) Normal Values 2D ECHO LV Diastolic Diameter PLAX 4.4 cm 4.2 - 5.9 / 3.9 - 5.3 cm LV Systolic Diameter PLAX 2.2 cm IVS Diastolic Thickness 1.0 cm 0.6 - 1.0 / 0.6 - 0.9 cm LVPW Diastolic Thickness 1.0 cm 0.6 - 1.0 / 0.6 - 0.9 cm LV Relative Wall Thickness 0.5 RV Internal Dim ED PLAX 2.6 cm M-MODE Aortic Root Diameter MM 2.7 cm LA Systolic Diameter MM 3.2 cm LA Ao Ratio MM 1.2 AV Cusp Separation MM 1.7 cm DOPPLER MV Area PHT 3.1 cm??? Mitral E Point Velocity 58.5 cm/s Mitral A Point Velocity 80.0 cm/s Mitral E to A Ratio 0.7 MV Deceleration Time 243.0 ms FINDINGS Left Ventricle Mildly increased left ventricular wall thickness. Left ventricular cavity size normal. Normal left ventricular systolic function with no obvious regional wall motion abnormalities. Left ventricular ejection fraction is estimated at 55 %. Grade 1 diastolic dysfunction. Right Ventricle Normal right ventricular size and function. Right Atrium Normal right atrial size. Left Atrium Normal left atrial size. Mitral Valve Structurally normal mitral valve. Mild mitral annular calcification. Mild mitral regurgitation. Aortic Valve Trileaflet aortic valve. No aortic valve stenosis or regurgitation. Aortic valve sclerosis. Tricuspid Valve Structurally normal tricuspid valve. Mild tricuspid regurgitation. Pulmonic Valve Structurally normal pulmonic valve. Pericardium No pericardial effusion. Aorta Normal size aortic root and proximal ascending aorta. CONCLUSIONS Normal LV function Mild mitral regurgitation Previewed by: Dr. Edi Welsh MD (Electronically Signed) Final Date: 18 March 2024 11:48
--- NOTE | 2024-03-18 12:18 | P.PN ---
Subjective Progress Note Date: 03/17/24 This is a telemedicine neurology follow-up performed today on 03/17/2024, and in coordination with Jennifer Hernandez. Patient was seen for follow-up. Patient denies any new focal symptoms. She is laying in the bed. Objective - Vital Signs Vital signs: Vital Signs Temp 98.1 F 03/17/24 08:15 Pulse 53 L 03/17/24 08:15 Resp 18 03/17/24 08:15 BP 138/97 03/17/24 08:15 Pulse Ox 96 03/17/24 08:15 FiO2 Intake & Output 03/16/24 03/17/24 03/17/24 18:59 06:59 18:59 Weight 58.967 kg - Exam Examination unchanged. - Labs CBC & Chem 7: 03/18/24 11:08 03/18/24 11:08 Assessment and Plan Assessment: * Acute onset of left arm numbness and weakness, that seems to have mostly resolved per patient. However examination revealed some weakness in the left upper and lower extremity. Rule out stroke/TIA. * History of CVA at age 52, with no residual deficits * History of possible TIA "couple months ago" with no residual deficits. * History of right CEA * Hypertension * Hyperlipidemia * Tobacco use Plan: * Await MRI of the brain with and without contrast, evaluate for acute CVA, rule out demyelinating disease * 2-D echo with bubble study to rule out PFO * CTA head and neck showed: No evidence of dissection of the cervical internal carotid arteries. No evidence of significant stenosis at the carotid bifurcation. No evidence of intracranial high-grade stenosis or intracranial aneurysm. Right dominant vertebral artery with hypoplastic left vertebral artery. Hypoplastic right A1 segment. * Fasting a.m. lipid panel with cholesterol 150, LDL 68, HDL 64 and triglycerides 84. Continue Lipitor 80 mg daily (home medication). * Hemoglobin A1c 5.9 * B12 430, folate 8.5. Will start B12, folate replacement for borderline levels. * Optimize control of blood pressure. * Continue Plavix 75 mg and aspirin (Home dose DAPT). Patient was on aspirin 81 mg, now increased the dose at 325 mg. * Neuro checks every 4 hours. * Telemetry monitoring rule out any arrhythmia * EEG, rule out epileptiform activity. Patient had recurrent stroke/TIA. * PT, OT, speech therapy * Recommend complete tobacco cessation. * Recommend abstinence from vaping. * DVT prophylaxis: Lovenox 40 mg subcu daily
[2024-03-18] MEDS: CYANOCOBALAMIN 500 MCG TAB PO SCH (12:27)
[2024-03-18] MEDS: FOLIC ACID 1 MG TAB PO SCH (12:28)
--- NOTE | 2024-03-18 13:44 | P.DS ---
Providers Date of admission: 03/16/24 10:16 Expected date of discharge: 03/18/24 Attending physician: Noel Turner Consults: 03/16/24 10:15 Consult Physician Urgent Consulting Provider: Andrés Ku Consult Reason/Comments: tia Do you want consulting provider notified?: Yes Primary care physician: [facility] Course: 63 year old F with PMH of CVA/TIA, CAD, HTN, Fibromyalgia, Anxiety presents to the ED. She reports numbness in her left hip all the way down to her foot that started this morning. She also reports some weakness in that leg. She denies any slurred speech, confusion, difficulty swallowing or speaking. These symptoms prompted her to come to the ED. Her symptoms have resolved during the encounter. In the ED she underwent extensive evaluation. BP 130/68, HR 60, RR 16, 98% on RA. CBC, Coag panel, CMP significant for K 3.3. CPK 162. CXR negative. Brain CT white matter changes bilaterally. CTA head and neck no evidence of significant stenosis of the carotids. EKG sinus bradycardia. Patient is admitted for CVA rule out. 03/18 Patient was seen and examined. No events overnight. Symptoms resolved. MRI brain negative for acute CVA. Discussed with Dr. Ku, EEG negative, cleared for discharge on ASA and Plavix. B12 430 replaced with B12 1000 mcg PO QD and Folate 8.5 replaced with Folic acid 1 mg PO QD. Follow up with PCP within 1-2 days and Neurology within 1 week of discharge. General: non toxic, no distress, appears at stated age Derm: warm, dry Head: atraumatic, normocephalic, symmetric Eyes: no lid lag, anicteric sclera Mouth: no lip lesion, mucus membranes moist Cardiovascular: Good distal perfusion in all 4 extremities Lungs: breathing comfortably, no accessory muscle use Ext: no gross muscle atrophy, no edema, no contractures Psych: Alert, oriented, appropriate affect Discharge Diagnosis: LLE numbness Low-Normal B12 and Folate CAD HTN Fibromyalgia Anxiety This complex discharge took 35 minutes to complete. Patient Condition at Discharge: Stable Plan - Discharge Summary Discharge Rx Participant: Yes New Discharge Prescriptions: New Aspirin 325 mg PO DAILY #30 tab Folic Acid 1 mg PO DAILY #30 tab Cyanocobalamin [Vitamin B-12] 1,000 mcg PO DAILY #30 tab Continue ALPRAZolam [Xanax] 0.25 mg PO DAILY PRN PRN Reason: Anxiety Citalopram Hydrobromide [CeleXA] 40 mg PO DAILY Gabapentin [Neurontin] 300 mg PO DAILY Cyclobenzaprine [Flexeril] 10 mg PO DAILY Clopidogrel [Plavix] 75 mg PO DAILY #30 tab Mirabegron [Myrbetriq] 50 mg PO DAILY Atorvastatin [Lipitor] 80 mg PO DAILY #30 tab Isosorbide Mononitrate ER [Imdur] 30 mg PO DAILY Gabapentin 600 mg PO HS Losartan-Hctz 50-12.5 mg [Hyzaar 50-12.5] 1 tab PO DAILY Nystatin/Triamcin [Nystatin-Triamcinolone Cream] 1 applic TOPICAL BID PRN PRN Reason: Skin Irritation Discharge Medication List ALPRAZolam [Xanax] 0.25 mg PO DAILY PRN 01/25/15 [History] Citalopram Hydrobromide [CeleXA] 40 mg PO DAILY 05/31/17 [History] Cyclobenzaprine [Flexeril] 10 mg PO DAILY 05/31/17 [History] Gabapentin [Neurontin] 300 mg PO DAILY 05/31/17 [History] Mirabegron [Myrbetriq] 50 mg PO DAILY 12/20/22 [History] Atorvastatin [Lipitor] 80 mg PO DAILY #30 tab 12/22/22 [Rx] Clopidogrel [Plavix] 75 mg PO DAILY #30 tab 12/22/22 [Rx] Gabapentin 600 mg PO HS 12/29/22 [History] Isosorbide Mononitrate ER [Imdur] 30 mg PO DAILY 12/29/22 [History] Losartan-Hctz 50-12.5 mg [Hyzaar 50-12.5] 1 tab PO DAILY 12/29/22 [History] Nystatin/Triamcin [Nystatin-Triamcinolone Cream] 1 applic TOPICAL BID PRN 03/16/24 [History] Aspirin 325 mg PO DAILY #30 tab 03/18/24 [Rx] Cyanocobalamin [Vitamin B-12] 1,000 mcg PO DAILY #30 tab 03/18/24 [Rx] Folic Acid 1 mg PO DAILY #30 tab 03/18/24 [Rx] Follow up Appointment(s)/Referral(s): Stanford Clark DO [STAFF PHYSICIAN] - 1 Week Allen Watkins DO [Primary Care Provider] - 1-2 days Activity/Diet/Wound Care/Special Instructions: Diet: Cardiac Please stop smoking/vaping. Discharge Disposition: HOME SELF-CARE
[2024-03-18 15:36] LABS: Amphetamine Screen,Urine Not Detected (NotDetected); Barbiturate Screen,Urine Not Detected (NotDetected); Benzodiazepines Screen,Urine Not Detected (NotDetected); Cocaine Screen,Urine Not Detected (NotDetected); Methadone Screen, Urine Not Detected (NotDetected); Opiate Screen,Urine Not Detected (NotDetected); Oxycodone Screen, Urine Not Detected (NotDetected); Phencyclidine Screen,Urine Not Detected (NotDetected); Tricyclic Antidepressant,Urine Not Detected (NotDetected); Urn Cannabinoid Scrn Not Detected (NotDetected)
--- NOTE | 2024-03-19 11:58 | P.PN ---
Subjective Progress Note Date: 03/18/24 Patient was seen for follow-up. Patient denies any new focal symptoms. Patient is ready for discharge. She is walking around in the room without any issues. No further strokelike symptoms. No numbness of the legs. Objective - Vital Signs Vital signs: Vital Signs Temp 97.8 F 03/18/24 05:30 Pulse 55 L 03/18/24 11:28 Resp 16 03/18/24 11:28 BP 132/77 03/18/24 11:28 Pulse Ox 98 03/18/24 11:28 FiO2 Intake & Output 03/17/24 03/18/24 03/18/24 18:59 06:59 18:59 Intake Total 836 720 Balance 836 720 Weight 58.967 kg 58.3 kg Intake: Oral 836 720 Other: # Voids 1 1 - Exam Patient's mental status, speech and language functions are normal. Cranial nerves are normal. Muscle strength is normal. Gait normal. No ataxia. - Labs CBC & Chem 7: 03/18/24 11:08 03/18/24 11:08 Labs: Abnormal Lab Results - Last 24 Hours (Table) 03/18/24 Range/Units 11:08 Carbon Dioxide 31 H (22-30) mmol/L Assessment and Plan Assessment: * Acute onset of left arm numbness and weakness, that seems to have mostly resolved per patient. However examination revealed some weakness in the left upper and lower extremity. Possible TIA. * History of CVA at age 52, with no residual deficits * History of possible TIA "couple months ago" with no residual deficits. * History of right CEA * Hypertension * Hyperlipidemia * Tobacco use Plan: * MRI of the brain revealed no evidence of intracranial mass, acute/subacute infarct or abnormal enhancement. Nonspecific white matter changes, likely secondary to small vessel ischemic disease. 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 I personally reviewed MRI, agree with the findings. There is some periventricular white matter lesion also noted. Although likely due to small vessel disease, but demyelinating disease also in the differential. Patient recommended to follow-up with neurologist outpatient. * 2D echo revealed normal left ventricular size and systolic function with EF 55%. Normal left atrial size. No valvular abnormalities. * CTA head and neck showed: No evidence of dissection of the cervical internal carotid arteries. No evidence of significant stenosis at the carotid bifurcation. No evidence of intracranial high-grade stenosis or intracranial aneurysm. Right dominant vertebral artery with hypoplastic left vertebral artery. Hypoplastic right A1 segment. * Fasting a.m. lipid panel with cholesterol 150, LDL 68, HDL 64 and triglycerides 84. Continue Lipitor 80 mg daily (home medication). * Hemoglobin A1c 5.9 * B12 430, folate 8.5. Will start B12, folate replacement for borderline levels. * Optimize control of blood pressure. * Continue Plavix 75 mg and aspirin (Home dose DAPT). Patient was on aspirin 81 mg, now increased the dose at 325 mg. * Telemetry monitoring showing no arrhythmia. * EEG, was normal awake and drowsy. No focal, lateralized or epileptiform activity was seen. * Recommend complete tobacco cessation. * Recommend abstinence from vaping. * Neurologically clear for discharge.
--- NOTE | 2024-03-19 16:50 | EEG ---
ELECTROENCEPHALOGRAM REPORT PREAMBLE: This is a 63-year-old female with history of TIAs. The patient had some episodes of confusion in the past. Rule out seizure. EEG FINDINGS: This is a 21-channel digital EEG recorded with video component, utilizing 10/20 international system with referential and bipolar montages. Background consists of well developed, well regulated moderate voltage activity in 10 hertz alpha. Background is posterior dominant and reactive to eye opening and closing. Photic driving response was seen with some flash frequencies. Drowsiness was seen with appearance of bilaterally symmetric theta frequency rhythm. Deeper stages of sleep were not seen. No focal or generalized epileptiform activity was seen. IMPRESSION: This is a normal awake and drowsy EEG. No focal, lateralized, or epileptiform activity was seen. MMODL / IJN: [id number] /
== END 2024-03-18 17:12 | disposition home or self-care (01) ==
LOC: EC 08:05 → 3SCARD 10:16
PROVIDERS: ADMIT Student in an Organized Health Care Education/Training Program; ATTEND Student in an Organized Health Care Education/Training Program
DX: R20.0 Anesthesia of skin (principal); R53.1 Weakness; I25.10 Atherosclerotic heart disease of native coronary artery without angina pectoris; E78.5 Hyperlipidemia, unspecified; I10 Essential (primary) hypertension; I25.2 Old myocardial infarction; M79.7 Fibromyalgia; G43.909 Migraine, unspecified, not intractable, without status migrainosus; F41.9 Anxiety disorder, unspecified; F17.210 Nicotine dependence, cigarettes, uncomplicated; R00.1 Bradycardia, unspecified; Z79.82 Long term (current) use of aspirin; Z79.02 Long term (current) use of antithrombotics/antiplatelets; Z79.899 Other long term (current) drug therapy; Z88.5 Allergy status to narcotic agent; Z88.8 Allergy status to other drugs, medicaments and biological substances; Z86.73 Personal history of transient ischemic attack (TIA), and cerebral infarction without residual deficits
CPT/HCPCS: 96372 ×2; 96361; 99285; 36415; 94760; 95816; 93005; 93306; 97165; 92523; 80061; 80053; 80048; 82607; 82550; 82746; 85025 ×2; 85610; 85730; 80306; 83036; 71046; 70496; 70450; 70498; 70553; G0378 ×3; J1650 ×2; Q9967; A9585

== ENCOUNTER 2024-04-03 08:35 | Emergency (ER) | payer BC ==
[2024-04-03 09:16] VITALS: RESP 18
[2024-04-03 09:29] LABS: Basophils # (A) 0.1 k/uL (0-0.2); Basophils % (A) 1 %; Eosinophils # (A) 0.2 k/uL (0-0.7); Eosinophils % (A) 3 %; HCT 42.1 % (34.0-46.0); HGB 13.8 gm/dL (11.4-16.0); Lymphocytes # (A) 2.2 k/uL (1.0-4.8); Lymphocytes % (A) 23 %; MCH 31.1 pg (25.0-35.0); MCHC 32.7 g/dL (31.0-37.0); MCV 95.1 fL (80.0-100.0); Mean Platelet Volume 7.4; Monocytes # (A) 0.5 k/uL (0-1.0); Monocytes % (A) 5 %; Neutrophils # (A) 6.1 k/uL (1.3-7.7); Neutrophils % (A) 66 %; Platelet Count 308 k/uL (150-450); RBC 4.43 m/uL (3.80-5.40); WBC 9.3 k/uL (3.8-10.6)
[2024-04-03] MEDS: SODIUM CHLORIDE 0.9% 1,000 ML IV STA (09:35)
[2024-04-03 09:39] LABS: INR 0.9 (<1.2); Partial Thromboplastin Time 22.6 sec (22.0-30.0); Prothrombin Time 10.4 sec (10.0-12.5)
[2024-04-03 09:47] LABS: ALT 17 U/L (4-34); AST 21 U/L (14-36); African American GFR (CKD) 72 (>60 ml/min/1.73 sqM); Albumin 4.4 g/dL (3.5-5.0); Alkaline Phosphatase 50 U/L (38-126); Anion Gap 7 mmol/L; Blood Urea Nitrogen 13 mg/dL (7-17); Carbon Dioxide 28 mmol/L (22-30); Chloride 106 mmol/L (98-107); Creatine Kinase 65 U/L (30-135); Glucose 108 mg/dL (74-99); Non-African American GFR(CKD) 62 (>60 ml/min/1.73 sqM); Potassium 4.2 mmol/L (3.5-5.1); Sodium 141 mmol/L (137-145); Total Bilirubin 0.4 mg/dL (0.2-1.3); Total Protein 6.9 g/dL (6.3-8.2)
--- NOTE | 2024-04-03 10:07 | XR ---
EXAMINATION TYPE: XR chest 2V DATE OF EXAM: 04/03/2024 9:48 AM COMPARISON: Chest radiographs from CLINICAL INDICATION: Female, 63 years old with history of altered mental status; [facility] TECHNIQUE: XR chest 2V Frontal and lateral views of the chest. FINDINGS: Lungs/Pleura: There is flattening of the diaphragm with increased lucency of the lungs. No evidence o f pneumothorax, pleural effusion or focal consolidation. Pulmonary vascularity: Unremarkable. Heart/mediastinum: Cardiomediastinal silhouette is unremarkable. Musculoskeletal: No acute osseous pathology. Other findings: None Lines/Tubes: IMPRESSION: 1. No acute cardiopulmonary disease process. 2. COPD changes. [facility], , 04/03/2024 10:05 AM
--- NOTE | 2024-04-03 10:25 | CT ---
EXAMINATION TYPE: CT brain wo con CT DLP: 1127.6 mGycm, Automated exposure control for dose reduction was used. DATE OF EXAM: 04/03/2024 10:01 AM COMPARISON: MRI brain 03/10/2024, CT brain 03/16/2024, 05/29/2018 CLINICAL INDICATION:Female, 63 years old with history of Neuro deficit, acute, stroke suspected, APHA CLARISSA AND LEG NUMBNESS. HX OF STROKE TECHNIQUE: Brain: Multiple axial CT images of the brain were obtained without IV contrast. . Coronal and sagitta l reformats reviewed. FINDINGS: Brain: Extra-axial spaces: No abnormal extra-axial fluid collections. Ventricular system: Within normal limits Cerebral parenchyma: No acute intraparenchymal hemorrhage or mass effect. Remote left occipital lobe infarct with encephalomalacia. The fuentes-white junction is well differentiated. Similar periventricul ar and subcortical hypodensities related to a vessel ischemic disease. This is again most prominent a long the right escalante radiata with lacunar injury. Similar nonspecific bilateral basal ganglia calcif ications. Cerebellum: Unremarkable. Mass effect: No evidence of midline shift. Intracranial vasculature: Atherosclerotic calcifications of the intracranial vessels. Soft tissues: Normal. Calvarium/osseous structures: No depressed skull fracture. Paranasal sinuses and mastoid air cells: Clear Visualized orbits: Orbital contents are intact. IMPRESSION: 1. No acute intracranial process or significant change from prior. 2. Remote left occipital lobe ischemic injury. 3. Remote lacunar injuries along with nonspecific white matter changes likely secondary to chronic m icroangiopathy. [facility], , 04/03/2024 10:22 AM
--- NOTE | 2024-04-03 10:36 | CT ---
EXAMINATION TYPE: CT angio head neck CT DLP: 351.2 mGycm, Automated exposure control for dose reduction was used. DATE OF EXAM: 04/03/2024 10:27 AM COMPARISON: CTA head neck 03/16/2024. CLINICAL INDICATION:Female, 63 years old with history of Neuro deficit, acute, stroke suspected; PHH, APHASIA AND LEG NUMBNESS TECHNIQUE: Axially acquired helical CT angiogram of the head and neck was obtained with contrast util izing 75 cc of Isovue-370 administered intravenously. Axial images are supplemented with 3D reconstru ctions which were post-processed at an independent workstation. NASCET criteria used. FINDINGS: CTA HEAD: No evidence of acute intracranial hemorrhage, mass effect, or midline shift. The ventricles, sulci, a nd cisterns are unremarkable. Vertebral arteries: The vertebral arteries are patent. Hypoplastic left vertebral artery. Vertebral artery dominance: Right Basilar artery: The basilar artery is intact. The basilar artery bifurcation is normal. Internal Carotid arteries: The cervical, petrous, cavernous and supraclinoid segments are normal. KIKO: Nonvisualization of the right A1 segment with both A1 segment arteries originate off the left wh ich is an anatomical variant. Patent with no evidence of aneurysm. ACOM: Present without evidence of aneurysm. MCA: Patent with no evidence of aneurysm. 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 PCOM: Hypoplastic bilaterally. Dural sinuses: Patent. CTA NECK: Right Carotid System: The common carotid artery and external carotid artery are patent. Mild calcified and noncalcified dillon que at the carotid bifurcation with approximately 10% stenosis at the origin of the right internal ca rotid artery. The remaining portions of the internal carotid artery demonstrate normal size without s ignificant narrowing. Left Carotid System: The common carotid and external carotid arteries are patent. There is 25% stenosis at the origin of t he left internal carotid artery secondary to calcified and noncalcified plaque. The rest of the inter nal carotid artery is patent. Hypoplastic patent left vertebral artery. Dominant right patent vertebral artery. There is a bovine aortic arch. The origins of the great vessels are patent. No evidence of hemodynami wendy significant stenosis. Partial visualization of bilateral breast prosthesis. Multilevel degenerative disc disease. IMPRESSION: 1. No evidence of dissection of the cervical internal carotid arteries. 2. Approximately 10% stenosis of the origin of the right internal carotid artery and 25% stenosis or igin left internal carotid artery secondary to calcified and noncalcified plaque. 3. No evidence of intracranial high-grade stenosis or intracranial aneurysm. 4. 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 5. Hypoplastic right A1 segment which is an anatomical variant. [facility], , 04/03/2024 10:34 AM
--- NOTE | 2024-04-03 11:20 | US ---
EXAMINATION TYPE: US venous doppler duplex LE DATE OF EXAM: 04/03/2024 10:34 AM COMPARISON: NONE CLINICAL INDICATION: Female, 63 years old with history of eval for DVT bilaterally; pain, Pain, Swell ing TECHNIQUE: The lower extremity deep venous system is examined utilizing real time linear array sonog graciela with graded compression, color doppler sonography, and spectral doppler. SIDE PERFORMED: Bilateral FINDINGS: VESSELS IMAGED: Common Femoral Vein Deep Femoral Vein Greater Saphenous Vein * Femoral Vein Popliteal Vein Small Saphenous Vein * Proximal Calf Veins (* superficial vessels) Right Leg: Negative for DVT, Color Doppler imaging shows patency of the vessels. Spectral waveforms are within normal limits. Left Leg: Negative for DVT, Color Doppler imaging shows patency of the vessels. Spectral waveforms a re within normal limits. IMPRESSION: No ultrasound evidence for deep venous thrombosis. [facility], , 04/03/2024 11:18 AM
--- NOTE | 2024-04-03 11:58 | ED ---
General Adult HPI - General Chief complaint: Neuro Symptoms/Deficit Stated complaint: both leg numbness Time Seen by Provider: 04/03/24 08:55 Source: patient, RN notes reviewed, old records reviewed Mode of arrival: wheelchair Limitations: no limitations - History of Present Illness Initial comments: Patient is a 63-year-old female presents emergency department complaining of lower extremity numbness that has since passed. Occurred this morning between 5 and 6 AM. Presents for further evaluation at this time. 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 He has no acute symptoms at this time. Denies any chest pain. Denies current weakness or numbness. States she was standing when she Suddenly felt the numbness sensation throughout her legs. Is asking for ultrasound of her legs to evaluate for blood clot. Unknown if she had a stroke. Matthews lightheaded earlier as well. All symptoms have since resolved. Zentz for further evaluation at this time. No recent head trauma or falls. Is on Plavix. - Related Data Home Medications Medication Instructions Recorded Confirmed ALPRAZolam [Xanax] 0.25 mg PO DAILY PRN 01/25/15 04/03/24 Citalopram Hydrobromide [CeleXA] 40 mg PO DAILY 05/31/17 04/03/24 Gabapentin [Neurontin] 300 mg PO DAILY 05/31/17 04/03/24 Mirabegron [Myrbetriq] 50 mg PO DAILY 12/20/22 04/03/24 Gabapentin 600 mg PO HS 12/29/22 04/03/24 Isosorbide Mononitrate ER [Imdur] 30 mg PO DAILY 12/29/22 04/03/24 Losartan-Hctz 50-12.5 mg [Hyzaar 1 tab PO DAILY 12/29/22 04/03/24 50-12.5] Nystatin/Triamcin 1 applic TOPICAL BID PRN 03/16/24 04/03/24 [Nystatin-Triamcinolone Cream] Cyanocobalamin (Vitamin B-12) 1,000 mcg PO DAILY 04/03/24 04/03/24 [Vitamin B-12] Oxybutynin ER [Ditropan XL] 10 mg PO DAILY 04/03/24 04/03/24 Previous Rx's Medication Instructions Recorded Atorvastatin [Lipitor] 80 mg PO DAILY #30 tab 12/22/22 Clopidogrel [Plavix] 75 mg PO DAILY #30 tab 12/22/22 Aspirin 325 mg PO DAILY #30 tab 03/18/24 Folic Acid 1 mg PO DAILY #30 tab 03/18/24 Allergies Allergy/AdvReac Type Severity Reaction Status Date / Time hydrocodone Allergy Unknown Verified 04/03/24 11:45 lisinopril Allergy Unknown Verified 04/03/24 11:45 tramadol Allergy Itching Verified 04/03/24 11:45 Review of Systems ROS Statement: Those systems with pertinent positive or pertinent negative responses have been documented in the HPI. Review of Systems: CONST: Denies fever EYES: Denies blurry vision ENT: Denies nasal congestion C/V: Denies Chest pain RESP: Denies shortness of breath GI: Denies abdominal pain : Denies dysuria SKIN: Denies rash. MSK: Denies joint pain. NEURO: Denies headache ROS Other: All systems not noted in ROS Statement are negative. Past Medical History Past Medical History: CVA/TIA, Fibromyalgia, Hyperlipidemia, Hypertension, Memory Impairment, Myocardial Infarction (NV), Osteoarthritis (OA) Additional Past Medical History / Comment(s): Stroke 2015 or 2016-memory loss Last Myocardial Infarction Date:: 2023 History of Any Multi-Drug Resistant Organisms: None Reported Past Surgical History: Hysterectomy, Orthopedic Surgery Additional Past Surgical History / Comment(s): fusion rt foot surgery,carotid , carpel tunnel bilateral, bilaterl hand basal joint, and bilateral foot surgery, partial Hyst Past Anesthesia/Blood Transfusion Reactions: No Reported Reaction Past Psychological History: Anxiety Smoking Status: Current every day smoker Past Alcohol Use History: Occasional Past Drug Use History: None Reported - Past Family History Sister(s) Family Medical History: Cancer Additional Family Medical History / Comment(s): Ovarian cancer. Father Family Medical History: Cancer General Exam - General Exam Comments Initial Comments: General: Appears in no acute distress. HEAD: Normal with no signs of head trauma. EYES: PERRLA, EOMI, conjunctiva normal, no discharge. Pupils are 3 mm and equal bilaterally. ENT: Hearing grossly intact, normal oropharynx. RESPIRATORY: Clear breath sounds bilaterally. No wheezes, rales, or rhonchi. C/V: Regular rate and rhythm. S1 and S2 auscultated, no edema, peripheral pulses 2+ and intact throughout ABD: Abd is soft, nontender, nondistended EXT: Normal range of motion, no obvious deformity SKIN: No rashes or lesions observed on exposed skin. NEURO: Alert and oriented x 4. Cranial nerves II-XII intact. No focal sensory or strength deficits. NIH is currently 0. GCS of 15. Limitations: no limitations Course Vital Signs 04/03/24 04/03/24 04/03/24 08:41 09:16 10:00 Temperature 97.8 F Pulse Rate 74 68 61 Respiratory 16 18 18 Rate Blood Pressure 89/60 108/63 124/74 O2 Sat by Pulse 96 98 100 Oximetry 04/03/24 12:40 Temperature 98.3 F Pulse Rate 65 Respiratory 18 Rate Blood Pressure 107/73 O2 Sat by Pulse 100 Oximetry Medical Decision Making - Medical Decision Making Was pt. sent in by a medical professional or institution (Dr. PA, INDUSTRI[employer]EFITTER JOURNEYMAN, urgent care, hospital, or residential...) When possible be specific @ -No Did you speak to anyone other than the patient for history (EMS, parent, family, police, friend...)? What history was obtained from this source @ -No Did you review nursing and triage notes (agree or disagree)? Why? @ -I reviewed and agree with nursing and triage notes Were old charts reviewed (outside hosp., previous admission, EMS record, old EKG, old radiological studies, urgent care reports/EKG's, residential records)? Report findings @ -No old charts were reviewed Differential Diagnosis (chest pain, altered mental status, abdominal pain women, abdominal pain men, vaginal bleeding, weakness, fever, dyspnea, syncope, hea dache, dizziness, GI bleed, back pain, seizure, CVA, palpatations, mental health, musculoskeletal)? @ -CVA, electrolyte abnormality, near syncope, this list is not all inclusive. EKG interpreted by me (3pts min.). @ -As above X-rays interpreted by me (1pt min.). @ -Chest x-ray reveals no obvious acute cardiopulmonary process. CT interpreted by me (1pt min.). @ -CT brain reveals no obvious acute intracranial process. Remote CVAs seen. CT angiogram of the head and the neck reveal mild carotid artery stenosis with no large vessel occlusions. U/S interpreted by me (1pt. min.). @ -DVT ultrasound reveals no obvious acute DVT of either lower extremity. What testing was considered but not performed or refused? (CT, X-rays, U/S, labs)? Why? @ -None What meds were considered but not given or refused? Why? @ -None Did you discuss the management of the patient with other professionals (pro fessionals i.e. , PA, INDUST[employer] PIPEFITTER JOURNEYMAN, lab, RT, psych nurse, social worker assistant, supervisor publications, teacher, operations officer trust department, major case detective)? Give summary @ -No Was smoking cessation discussed for >3mins.? @ -No Was critical care preformed (if so, how long)? @ -No Were there social determinants of health that impacted care today? How? (Homelessness, low income, unemployed, alcoholism, drug addiction, transportation, low edu. Level, literacy, decrease access to med. care, fci, rehab)? @ -No Was there de-escalation of care discussed even if they declined (Discuss DNR or withdrawal of care, Hospice)? DNR status @ -No What co-morbidities impacted this encounter? (DM, HTN, Smoking, COPD, CAD, Cancer, CVA, ARF, Chemo, Hep., AIDS, mental health diagnosis, sleep apnea, morbid obesity)? @ -None Was patient admitted / discharged? Hospital course, mention meds given and route, prescriptions, significant lab abnormalities, going to OR and other pertinent info. @ -Based on the patient's presentation physical exam, presents emergency department thinking she may have had a stroke but unknown what is occurring her symptoms. Currently is asymptomatic. We will obtain stroke workup. She was in agreement this plan. Vitals are within acceptable limits. She will be given IV fluids at this time. Laboratory studies are all within acceptable limits. EKG shows no signs of acute ischemia. CT imaging of the brain unremarkable for any obvious acute process. Chest x-ray unremarkable. DVT ultrasounds unremarkable. On reevaluation, patient remains at her normal baseline with no obvious symptoms. Unknown what occurred earlier today but I do not believe patient requires admission at this time. She was in agreement this plan. Strict return precautions discussed. Recommended follow-up with her neurologist. I instructed the patient to follow up with their PCP in the next 1-3 days. I explained that the patient should return to the emergency department if they experience any worsening symptoms. Strict return precautions were discussed with the patient. The patient expressed understanding of these instructions. I answered all questions that the patient had. The patient was discharged home in good condition with their prescriptions and follow up information. Undiagnosed new problem with uncertain prognosis? @ -No Drug Therapy requiring intensive monitoring for toxicity (Heparin, Nitro, Insulin, Cardizem)? @ -No Were any procedures done? @ -No Diagnosis/symptom? @ -Bilateral leg weakness Acute, or Chronic, or Acute on Chronic? @ -Acute Uncomplicated (without systemic symptoms) or Complicated (systemic symptoms)? @ -Uncomplicated Side effects of treatment? @ -No Exacerbation, Progression, or Severe Exacerbation? @ -No Poses a threat to life or bodily function? How? (Chest pain, USA, NV, pneumonia, PE, COPD, DKA, ARF, appy, cholecystitis, CVA, Diverticulitis, Homicidal, Suicidal, threat to staff... and all critical care pts) @ -Unlikely - Lab Data Result diagrams: 04/03/24 09:16 04/03/24 09:16 Lab Results 04/03/24 04/03/24 04/03/24 Range/Units 09:16 09:16 09:16 WBC 9.3 (3.8-10.6) k/uL RBC 4.43 (3.80-5.40) m/uL Hgb 13.8 (11.4-16.0) gm/dL Hct 42.1 (34.0-46.0) % MCV 95.1 (80.0-100.0) fL MCH 31.1 (25.0-35.0) pg MCHC 32.7 (31.0-37.0) g/dL RDW 12.0 (11.5-15.5) % Plt Count 308 (150-450) k/uL MPV 7.4 Neutrophils % 66 % Lymphocytes % 23 % Monocytes % 5 % Eosinophils % 3 % Basophils % 1 % Neutrophils # 6.1 (1.3-7.7) k/uL Lymphocytes # 2.2 (1.0-4.8) k/uL Monocytes # 0.5 (0-1.0) k/uL Eosinophils # 0.2 (0-0.7) k/uL Basophils # 0.1 (0-0.2) k/uL PT 10.4 (10.0-12.5) sec INR 0.9 (<1.2) APTT 22.6 (22.0-30.0) sec Sodium 141 (137-145) mmol/L Potassium 4.2 (3.5-5.1) mmol/L Chloride 106 (98-107) mmol/L Carbon Dioxide 28 (22-30) mmol/L Anion Gap 7 mmol/L BUN 13 (7-17) mg/dL Creatinine 0.98 (0.52-1.04) mg/dL Est GFR (CKD-EPI)AfAm 72 (>60 ml/min/1.73 sqM) Est GFR (CKD-EPI)NonAf 62 (>60 ml/min/1.73 sqM) Glucose 108 H (74-99) mg/dL Calcium 10.0 (8.4-10.2) mg/dL Total Bilirubin 0.4 (0.2-1.3) mg/dL AST 21 (14-36) U/L ALT 17 (4-34) U/L Alkaline Phosphatase 50 (38-126) U/L Creatine Kinase 65 (30-135) U/L Total Protein 6.9 (6.3-8.2) g/dL Albumin 4.4 (3.5-5.0) g/dL - EKG Data -: EKG Interpreted by Me EKG Comments: 12-lead Electrocardiogram Interpretation Note EKG was reviewed and interpreted by myself. 12-lead ECG performed at 0904 is interpreted by me as revealing sinus bradycardia at a rate of 57 beats per minute. [place] is normal. NH interval is 166 ms, QRS duration is 90 ms, QTc is 428 ms.. There were no ST or T wave abnormalities to suggest myocardial ischemia or injury. R wave progression across the precordium was satisfactory. By my interpretation this EKG is non-diagnostic for acute ischemia. Disposition Clinical Impression: Leg weakness, bilateral Disposition: HOME SELF-CARE Condition: Good Instructions (If sedation given, give patient instructions): Weakness (ED) Additional Instructions: follow up with pcp Is patient prescribed a controlled substance at d/c from ED?: No Referrals: Allen Watkins DO [Primary Care Provider] - 1-2 days Time of Disposition: 11:58
[2024-04-03 12:41] VITALS: BP 107/73; PULSE 65; TEMP 98.3
== END 2024-04-03 12:52 | disposition home or self-care (01) ==
LOC: EC 08:35
DX: R53.1 Weakness (principal); R00.1 Bradycardia, unspecified; F17.200 Nicotine dependence, unspecified, uncomplicated; Z88.5 Allergy status to narcotic agent; Z88.8 Allergy status to other drugs, medicaments and biological substances; Z86.73 Personal history of transient ischemic attack (TIA), and cerebral infarction without residual deficits
CPT/HCPCS: 36415; 93005; 80053; 82550; 85025; 85610; 85730; 71046; 93970; 70496; 70450; 70498; 99285; 96360; Q9967

== ENCOUNTER 2024-05-09 09:12 | Emergency (ER) | payer BC ==
--- NOTE | 2024-05-09 10:12 | ED ---
General Adult HPI - General Chief complaint: Syncope Stated complaint: syncope Time Seen by Provider: 05/09/24 09:33 Source: patient, EMS, RN notes reviewed, old records reviewed Mode of arrival: EMS - History of Present Illness Initial comments: 63-year-old female with either brief syncopal or near syncopal episode while at work this morning. Patient states she started work at 6 AM and was noted to be more sleepy and may have passed out momentarily. 911 was contacted and the patient was brought to the hospital. She denies symptoms currently but is quite lethargic on exam she is arousable. She admits to taking her medication this morning prior to work which does include Xanax and gabapentin. She denies current headache. Denies chest pain or dyspnea. Denies abdominal pain. - Related Data Home Medications Medication Instructions Recorded Confirmed ALPRAZolam [Xanax] 0.25 mg PO DAILY PRN 01/25/15 04/03/24 Citalopram Hydrobromide [CeleXA] 40 mg PO DAILY 05/31/17 04/03/24 Gabapentin [Neurontin] 300 mg PO DAILY 05/31/17 04/03/24 Mirabegron [Myrbetriq] 50 mg PO DAILY 12/20/22 04/03/24 Gabapentin 600 mg PO HS 12/29/22 04/03/24 Isosorbide Mononitrate ER [Imdur] 30 mg PO DAILY 12/29/22 04/03/24 Losartan-Hctz 50-12.5 mg [Hyzaar 1 tab PO DAILY 12/29/22 04/03/24 50-12.5] Nystatin/Triamcin 1 applic TOPICAL BID PRN 03/16/24 04/03/24 [Nystatin-Triamcinolone Cream] Cyanocobalamin (Vitamin B-12) 1,000 mcg PO DAILY 04/03/24 04/03/24 [Vitamin B-12] Oxybutynin ER [Ditropan XL] 10 mg PO DAILY 04/03/24 04/03/24 Previous Rx's Medication Instructions Recorded Atorvastatin [Lipitor] 80 mg PO DAILY #30 tab 12/22/22 Clopidogrel [Plavix] 75 mg PO DAILY #30 tab 12/22/22 Aspirin 325 mg PO DAILY #30 tab 03/18/24 Folic Acid 1 mg PO DAILY #30 tab 03/18/24 Allergies Allergy/AdvReac Type Severity Reaction Status Date / Time hydrocodone Allergy Unknown Verified 04/03/24 11:45 lisinopril Allergy Unknown Verified 04/03/24 11:45 tramadol Allergy Itching Verified 04/03/24 11:45 Review of Systems ROS Statement: Those systems with pertinent positive or pertinent negative responses have been documented in the HPI. ROS Other: All systems not noted in ROS Statement are negative. Past Medical History Past Medical History: CVA/TIA, Fibromyalgia, Hyperlipidemia, Hypertension, Memory Impairment, Myocardial Infarction (GA), Osteoarthritis (OA) Additional Past Medical History / Comment(s): Stroke 2014 or 2016-memory loss Last Myocardial Infarction Date:: 2023 History of Any Multi-Drug Resistant Organisms: None Reported Past Surgical History: Hysterectomy, Orthopedic Surgery Additional Past Surgical History / Comment(s): fusion rt foot surgery,carotid , carpel tunnel bilateral, bilaterl hand basal joint, and bilateral foot surgery, partial Hyst Past Anesthesia/Blood Transfusion Reactions: No Reported Reaction Past Psychological History: Anxiety Smoking Status: Current every day smoker Past Alcohol Use History: Occasional Past Drug Use History: None Reported - Past Family History Sister(s) Family Medical History: Cancer Additional Family Medical History / Comment(s): Ovarian cancer. Father Family Medical History: Cancer General Exam General appearance: in no apparent distress, lethargic Head exam: Present: atraumatic, normocephalic Eye exam: Absent: PERRL (Right pupil is 4 mm, left pupil is 5 mm both reactive) Neck exam: Present: normal inspection Respiratory exam: Present: normal lung sounds bilaterally. Absent: respiratory distress, wheezes Cardiovascular Exam: Present: normal rhythm, bradycardia GI/Abdominal exam: Present: soft. Absent: distended, tenderness Extremities exam: Present: normal inspection, normal capillary refill. Absent: calf tenderness Neurological exam: Present: alert, oriented X3, CN II-XII intact, other (Normal strength throughout). Absent: motor sensory deficit Skin exam: Present: warm, dry, intact Course Vital Signs 05/09/24 05/09/24 05/09/24 09:17 09:38 10:27 Temperature 97.5 F L 97.9 F 98.5 F Pulse Rate 62 89 Respiratory 16 16 16 Rate Blood Pressure 146/82 146/82 132/102 O2 Sat by Pulse 99 98 Oximetry 05/09/24 10:52 Temperature 97.5 F L Pulse Rate 51 L Respiratory 16 Rate Blood Pressure 135/85 O2 Sat by Pulse 99 Oximetry - Reevaluation(s) Reevaluation #1: 05/09/24 12:03 Patient reevaluated, awake and alert, eager for discharge Medical Decision Making - Medical Decision Making Was pt. sent in by a medical professional or institution ([facility], [employer]MICAL [employer]ANT MANAGER, urgent care, hospital, or penitentiary...) When possible be specific @ -No Did you speak to anyone other than the patient for history (EMS, parent, family, police, friend...)? What history was obtained from this source @ -No Did you review nursing and triage notes (agree or disagree)? Why? @ -I reviewed and agree with nursing and triage notes Were old charts reviewed (outside hosp., previous admission, EMS record, old EKG, old radiological studies, urgent care reports/EKG's, penitentiary records)? Report findings @ -No old charts were reviewed Differential Syncope: Valvular disease, hypertrophic cardiomyopathy, pulmonary embolism, tamponade, tachycardia, bradycardia, GA, hypovolemia, hemorrhage, dissection, anemia, intracranial hemorrhage, seizure, hypoglycemia, carbon monoxide poisoning, this is not meant to be an all-inclusive list. EKG interpreted by me (3pts min.). @Sinus bradycardia rate of 48 KS interval 166, QRS duration 91, QTc 4 5 X-rays interpreted by me (1pt min.). @ -None done CT interpreted by me (1pt min.). @ -[CT brain is negative for intracranial hemorrhage, stable from prior exam U/S interpreted by me (1pt. min.). @ -None done What testing was considered but not performed or refused? (CT, X-rays, U/S, labs)? Why? @ -None What meds were considered but not given or refused? Why? @ -None Did you discuss the management of the patient with other professionals (professionals i.e. [facility], CHEMICAL PLANT MANAGER, lab, RT, psych nurse, social services designee, import/export clerk, teacher, customs and immigration officer, case liner)? Give summary @ -No Was smoking cessation discussed for >3mins.? @ -No Was critical care preformed (if so, how long)? @ -No Were there social determinants of health that impacted care today? How? (Homelessness, low income, unemployed, alcoholism, drug addiction, tr ansportation, low edu. Level, literacy, decrease access to med. care, skilled nursing, rehab)? @ -No Was there de-escalation of care discussed even if they declined (Discuss DNR or withdrawal of care, Hospice)? DNR status @ -No What co-morbidities impacted this encounter? (DM, HTN, Smoking, COPD, CAD, Cancer, CVA, ARF, Chemo, Hep., AIDS, mental health diagnosis, sleep apnea, morbid obesity)? @ -Previous CVA Was patient admitted / discharged? Hospital course, mention meds given and route, prescriptions, significant lab abnormalities, going to OR and other pertinent info. @ -[63-year-old presenting with syncopal episode. This may be medication effect. She did take her Xanax and gabapentin prior to work. She is in sinus bradycardia with stable blood pressure. Head CT is performed which is negative for acute findings. She has normal CBC, normal CMP, negative urinalysis. Patient monitored with stable vitals and patient is eager for discharge. Instructed to not take her sedating medications prior to going to work. She should follow-up with her primary care provider. Return parameters discussed. Undiagnosed new problem with uncertain prognosis? @ -No Drug Therapy requiring intensive monitoring for toxicity (Heparin, Nitro, Insulin, Cardizem)? @ -No Were any procedures done? @ -No Diagnosis/symptom? @ -Syncope versus sedation from benzodiazepine Acute, or Chronic, or Acute on Chronic? @ -Acute Uncomplicated (without systemic symptoms) or Complicated (systemic symptoms)? @ -Default Side effects of treatment? @ -No Exacerbation, Progression, or Severe Exacerbation? @ -No Poses a threat to life or bodily function? How? (Chest pain, USA, GA, pneumonia, PE, COPD, DKA, ARF, appy, cholecystitis, CVA, Diverticulitis, Homicidal, Suicidal, threat to staff... and all critical care pts) @ -[Moderate risk - Lab Data Result diagrams: 05/09/24 10:01 05/09/24 10:01 Lab Results 05/09/24 05/09/24 05/09/24 Range/Units 10:01 10:01 10:01 WBC 9.5 (3.8-10.6) k/uL RBC 4.20 (3.80-5.40) m/uL Hgb 13.0 (11.4-16.0) gm/dL Hct 39.6 (34.0-46.0) % MCV 94.3 (80.0-100.0) fL MCH 30.9 (25.0-35.0) pg MCHC 32.8 (31.0-37.0) g/dL RDW 12.0 (11.5-15.5) % Plt Count 240 (150-450) k/uL MPV 8.2 Neutrophils % 69 % Lymphocytes % 21 % Monocytes % 5 % Eosinophils % 2 % Basophils % 1 % Neutrophils # 6.5 (1.3-7.7) k/uL Lymphocytes # 2.0 (1.0-4.8) k/uL Monocytes # 0.5 (0-1.0) k/uL Eosinophils # 0.2 (0-0.7) k/uL Basophils # 0.1 (0-0.2) k/uL PT 10.3 (10.0-12.5) sec INR 0.9 (<1.2) APTT 19.0 L (22.0-30.0) sec Sodium (137-145) mmol/L Potassium (3.5-5.1) mmol/L Chloride (98-107) mmol/L Carbon Dioxide (22-30) mmol/L Anion Gap mmol/L BUN (7-17) mg/dL Creatinine (0.52-1.04) mg/dL Est GFR (CKD-EPI)AfAm (>60 ml/min/1.73 sqM) Est GFR (CKD-EPI)NonAf (>60 ml/min/1.73 sqM) Glucose (74-99) mg/dL Calcium (8.4-10.2) mg/dL Magnesium (1.6-2.3) mg/dL Total Bilirubin (0.2-1.3) mg/dL AST (14-36) U/L ALT (4-34) U/L Alkaline Phosphatase (38-126) U/L Troponin I (0.000-0.034) ng/mL Total Protein (6.3-8.2) g/dL Albumin (3.5-5.0) g/dL Urine Color Colorless Urine Appearance Clear (Clear) Urine pH 6.5 (5.0-8.0) Ur Specific [place] 1.010 (1.001-1.035) Urine Protein Negative (Negative) Urine Glucose (UA) Negative (Negative) Urine Ketones Negative (Negative) Urine Blood Trace H (Negative) Urine Nitrite Negative (Negative) Urine Bilirubin Negative (Negative) Urine Urobilinogen <2.0 (<2.0) mg/dL Ur Leukocyte Esterase Trace H (Negative) Urine RBC 2 (0-5) /hpf Urine WBC 1 (0-5) /hpf Ur Squamous Epith Cells 4 (0-4) /hpf Urine Bacteria Rare H (None) /hpf Hyaline Casts 23 H (0-2) /lpf Urine Mucus Occasional H (None) /hpf Urine Opiates Screen Not Detected (NotDetected) Ur Oxycodone Screen Not Detected (NotDetected) Urine Methadone Screen Not Detected (NotDetected) Ur Barbiturates Screen Not Detected (NotDetected) U Tricyclic Antidepress Not Detected (NotDetected) Ur Phencyclidine Scrn Not Detected (NotDetected) Ur Amphetamines Screen Not Detected (NotDetected) U Methamphetamines Scrn Not Detected (NotDetected) U Benzodiazepines Scrn Detected H (NotDetected) Urine Cocaine Screen Not Detected (NotDetected) U Marijuana (THC) Screen Not Detected (NotDetected) Serum Alcohol mg/dL 05/09/24 05/09/24 Range/Units 10:01 10:01 WBC (3.8-10.6) k/uL RBC (3.80-5.40) m/uL Hgb (11.4-16.0) gm/dL Hct (34.0-46.0) % MCV (80.0-100.0) fL MCH (25.0-35.0) pg MCHC (31.0-37.0) g/dL RDW (11.5-15.5) % Plt Count (150-450) k/uL MPV Neutrophils % % Lymphocytes % % Monocytes % % Eosinophils % % Basophils % % Neutrophils # (1.3-7.7) k/uL Lymphocytes # (1.0-4.8) k/uL Monocytes # (0-1.0) k/uL Eosinophils # (0-0.7) k/uL Basophils # (0-0.2) k/uL PT (10.0-12.5) sec INR (<1.2) APTT (22.0-30.0) sec Sodium 140 (137-145) mmol/L Potassium 3.5 (3.5-5.1) mmol/L Chloride 106 (98-107) mmol/L Carbon Dioxide 30 (22-30) mmol/L Anion Gap 4 mmol/L BUN 12 (7-17) mg/dL Creatinine 0.73 (0.52-1.04) mg/dL Est GFR (CKD-EPI)AfAm >90 (>60 ml/min/1.73 sqM) Est GFR (CKD-EPI)NonAf 89 (>60 ml/min/1.73 sqM) Glucose 94 (74-99) mg/dL Calcium 9.6 (8.4-10.2) mg/dL Magnesium 2.1 (1.6-2.3) mg/dL Total Bilirubin 0.4 (0.2-1.3) mg/dL AST 18 (14-36) U/L ALT 13 (4-34) U/L Alkaline Phosphatase 66 (38-126) U/L Troponin I <0.012 (0.000-0.034) ng/mL Total Protein 6.9 (6.3-8.2) g/dL Albumin 4.5 (3.5-5.0) g/dL Urine Color Urine Appearance (Clear) Urine pH (5.0-8.0) Ur Specific [place] (1.001-1.035) Urine Protein (Negative) Urine Glucose (UA) (Negative) Urine Ketones (Negative) Urine Blood (Negative) Urine Nitrite (Negative) Urine Bilirubin (Negative) Urine Urobilinogen (<2.0) mg/dL Ur Leukocyte Esterase (Negative) Urine RBC (0-5) /hpf Urine WBC (0-5) /hpf Ur Squamous Epith Cells (0-4) /hpf Urine Bacteria (None) /hpf Hyaline Casts (0-2) /lpf Urine Mucus (None) /hpf Urine Opiates Screen (NotDetected) Ur Oxycodone Screen (NotDetected) Urine Methadone Screen (NotDetected) Ur Barbiturates Screen (NotDetected) U Tricyclic Antidepress (NotDetected) Ur Phencyclidine Scrn (NotDetected) Ur Amphetamines Screen (NotDetected) U Methamphetamines Scrn (NotDetected) U Benzodiazepines Scrn (NotDetected) Urine Cocaine Screen (NotDetected) U Marijuana (THC) Screen (NotDetected) Serum Alcohol <10 mg/dL Disposition Clinical Impression: Syncope Disposition: HOME SELF-CARE Condition: Fair Instructions (If sedation given, give patient instructions): Syncope (ED) Is patient prescribed a controlled substance at d/c from ED?: No Referrals: Allen Watkins DO [Primary Care Provider] - 1-2 days Time of Disposition: 12:06
[2024-05-09] MEDS: SODIUM CHLORIDE 0.9% 500 ML 500 ML IV STA (10:13)
[2024-05-09 10:17] LABS: Basophils # (A) 0.1 k/uL (0-0.2); Basophils % (A) 1 %; Eosinophils # (A) 0.2 k/uL (0-0.7); Eosinophils % (A) 2 %; HCT 39.6 % (34.0-46.0); Lymphocytes % (A) 21 %; MCH 30.9 pg (25.0-35.0); MCHC 32.8 g/dL (31.0-37.0); MCV 94.3 fL (80.0-100.0); Mean Platelet Volume 8.2; Monocytes # (A) 0.5 k/uL (0-1.0); Monocytes % (A) 5 %; Neutrophils # (A) 6.5 k/uL (1.3-7.7); Neutrophils % (A) 69 %; Platelet Count 240 k/uL (150-450); WBC 9.5 k/uL (3.8-10.6)
[2024-05-09 10:20] LABS: Appearance,Urine Clear (Clear); Bacteria,Urine Rare /hpf; Bilirubin,Urine Negative (Negative); Blood,Urine Trace (Negative); Color,Urine Colorless; Glucose,Urine (UA) Negative (Negative); Hyaline Casts,Urine 23 /lpf (0-2); Ketones,Urine Negative (Negative); Leukocyte Esterase,Urine Trace (Negative); Mucus,Urine Occasional /hpf; Nitrite,Urine Negative (Negative); PH, Urine 6.5 (5.0-8.0); Protein,Urine Negative (Negative); RBC,Urine 2 /hpf (0-5); Squamous Epithelial Cell,Urine 4 /hpf (0-4); Urobilinogen,Urine <2.0 mg/dL (<2.0); WBC,Urine 1 /hpf (0-5)
[2024-05-09 10:34] LABS: Amphetamine Screen,Urine Not Detected (NotDetected); Barbiturate Screen,Urine Not Detected (NotDetected); Benzodiazepines Screen,Urine Detected (NotDetected); Cocaine Screen,Urine Not Detected (NotDetected); Methadone Screen, Urine Not Detected (NotDetected); Opiate Screen,Urine Not Detected (NotDetected); Oxycodone Screen, Urine Not Detected (NotDetected); Phencyclidine Screen,Urine Not Detected (NotDetected); Tricyclic Antidepressant,Urine Not Detected (NotDetected); Urn Cannabinoid Scrn Not Detected (NotDetected)
[2024-05-09 10:39] LABS: INR 0.9 (<1.2); Prothrombin Time 10.3 sec (10.0-12.5)
[2024-05-09 10:42] LABS: ALT 13 U/L (4-34); AST 18 U/L (14-36); African American GFR (CKD) >90 (>60 ml/min/1.73 sqM); Albumin 4.5 g/dL (3.5-5.0); Alcohol <10 mg/dL; Alkaline Phosphatase 66 U/L (38-126); Anion Gap 4 mmol/L; Blood Urea Nitrogen 12 mg/dL (7-17); Calcium 9.6 mg/dL (8.4-10.2); Carbon Dioxide 30 mmol/L (22-30); Chloride 106 mmol/L (98-107); Glucose 94 mg/dL (74-99); Magnesium 2.1 mg/dL (1.6-2.3); Non-African American GFR(CKD) 89 (>60 ml/min/1.73 sqM); Potassium 3.5 mmol/L (3.5-5.1); Sodium 140 mmol/L (137-145); Total Bilirubin 0.4 mg/dL (0.2-1.3); Total Protein 6.9 g/dL (6.3-8.2)
[2024-05-09 10:54] VITALS: BP 135/85; TEMP 97.5
--- NOTE | 2024-05-09 11:11 | CT ---
EXAMINATION TYPE: CT brain wo con DATE OF EXAM: 05/09/2024 COMPARISON: 04/03/2024 CLINICAL INDICATION: Female, 63 years old with history of syncope/AMS; PHH, Syncope, history of CVA CT DLP: 1041.4 mGycm Automated exposure control for dose reduction was used. Findings: T. The ventricles and basal cisterns are within normal limits for the patient's age. The sulci over conv exities are moderately prominent consistent with atrophy with a greater cortical component. There is a small remote cortical infarct involving the left occipital lobe. There is a stable remote lacunar infarct in the right basal ganglia. There is no mass effect or shift in midline structures. There is no acute intra or extra-axial hemorrhage. There is stable mild calcification in the left basal ganglia. The posterior fossa including the brainstem, fourth ventricle and cerebellopontine angles appear lee sly normal. The intraorbital contents appear normal and symmetric. Visualized paranasal sinuses and mastoid air cells are well aerated. The calvarium is intact. IMPRESSION: 1. No acute bleed or mass effect. 2. [id number] atrophy with a greater cortical component. 3. Small remote left occipital infarct and remote lacunar infarct in the right basal ganglia. 4. No significant interval change. [facility], , 05/09/2024 11:08 AM
[2024-05-09 12:31] VITALS: PULSE 80; RESP 18
== END 2024-05-09 12:35 | disposition home or self-care (01) ==
LOC: EC 09:12
DX: R55 Syncope and collapse (principal); Z88.5 Allergy status to narcotic agent; Z88.6 Allergy status to analgesic agent; Z88.8 Allergy status to other drugs, medicaments and biological substances; F17.200 Nicotine dependence, unspecified, uncomplicated; Z86.73 Personal history of transient ischemic attack (TIA), and cerebral infarction without residual deficits
CPT/HCPCS: 36415; 70450; 80053; 80306; 80320; 81001; 83735; 84484; 85025; 85610; 85730; 93005; 96360; 96361; 99284